=== PATIENT | female | born 1930 | race Caucasian/White ===

== ENCOUNTER 2018-09-29 09:46 | Inpatient (IN) ==
[2018-09-29] MEDS ORDERED: 0.9 % SODIUM CHLORIDE 1,000 ML IV ONE (10:32)
[2018-09-29 10:56] LABS: Basophils # (Auto) 0 K/mcL (0.0-0.3); Basophils % (Auto) 0 % (0.0-2.0); Eosinophils # (Auto) 1.6 K/mcL (0.0-0.7); Eosinophils % (Auto) 8.4 % (0.0-7.0); Granulocytes % (Auto) 78.2 % (38.0-78.0); Lymphocytes # (Auto) 1.3 K/mcL (1.5-4.8); Lymphocytes % (Auto) 7.2 % (15.5-49.0); Mean Cell Volume 87.3 fL (80.0-100.0); Mean Corpuscular HGB Conc 33.3 g/dL (31.0-36.0); Mean Corpuscular Hemoglobin 29.1 pg (26.0-34.0); Monocytes # (Auto) 1.2 K/mcL (0.1-0.9); Monocytes % (Auto) 6.2 % (1.0-12.0); Platelet Count 229 K/mcL (140-440); Red Cell Distribution Width 14.8 % (11.5-14.5)
[2018-09-29 11:18] LABS: ALT/SGPT 67 U/l (0-40); Albumin 3.8 gm/dL (3.2-5.2); Albumin/Globulin Ratio 1.1 (1.0-2.3); Alkaline Phosphatase 87 U/L (39-117); Blood Urea Nitrogen 43 mg/dl (8-23)
[2018-09-29] MEDS ORDERED: PIPERACILLIN SODIUM/TAZOBACTAM 3.375 GM in DEXTROSE 5% IN WATER 50 ML IV ONE (11:36)
--- NOTE | 2018-09-29 11:37 | Emergency Department Note ---
Weakness HPI - General Chief complaint: Weakness Stated complaint: Weakness, UTI Time Seen by Provider: 09/29/18 10:56 Source: patient, EMS Mode of arrival: ambulatory Limitations: no limitations - History of Present Illness HPI Narrative: 88-year-old female who fell last night and then again this morning comes in via EMS. Denies any current injury. Apparently she was cold and clammy but there was no fever nausea vomiting or diarrhea. Question of a partially treated UTI for which she received Rocephin last night with ciprofloxacin to go home with. I reviewed the note from [facility]-it shows that she had initially been on Macrobid. She has baseline dementia so while she is able to answer some basic questions she defers to her caregiver and son for much of the history. Her son states that she may have some altered mental status as well - Related Data Home Medications Medication Instructions Recorded Confirmed cholecalciferol (vitamin D3) 2,000 6,000 unit PO QDAY 04/17/17 08/21/18 unit capsule multivitamin tablet 1 tab-cap PO QDAY 04/17/17 08/21/18 donepezil 10 mg tablet 10 mg PO HS tab 02/19/18 08/21/18 Previous Rx's Medication Instructions Recorded Triamcinolone Crm 0.5% [Kenalog 1 dose TOPICAL DAILY #15 tube 12/18/17 Crm 0.5%] hydrocodone 5 mg-acetaminophen 325 1 tab PO .COMPLEX PRN #30 tab 03/23/18 mg tablet memantine 10 mg tablet 10 mg PO BID #180 tab 03/23/18 omeprazole 20 mg capsule,delayed 20 mg PO QDAY #90 cap 03/23/18 release pravastatin 40 mg tablet 40 mg PO QHS #90 tab 06/01/18 doxycycline hyclate 100 mg tablet 100 mg PO bid #20 tab 08/21/18 nitrofurantoin 100 mg PO BID #14 cap 09/25/18 monohydrate/macrocrystals 100 mg capsule Allergies Allergy/AdvReac Type Severity Reaction Status Date / Time Sulfa (Sulfonamide Allergy Mild UNKNOWN Verified 08/21/18 12:19 Antibiotics) Thiazides Allergy Mild ELEVATED Verified 08/21/18 12:19 WBC'S Erythromycin Base Allergy Unknown UNKNOWN Verified 08/21/18 12:19 Review of Systems All systems ED: reviewed and negative except as stated. Past Medical History - Past Medical History Attestation: Yes: The following information was validated with the patient. [facility] Narrative: Medical History (Last Reviewed 08/21/18 @ 13:05 by Mg Giang PA-C) Diverticulitis (Chronic) Subdural hematoma (Resolved) Diverticulitis (Resolved) Dementia (Chronic) Stroke (Chronic) Primary progressive aphasia (Chronic) Stress incontinence, female (Chronic) Peripheral vascular disease (Chronic) Lacunar infarction (Chronic) Hypertension, essential (Chronic) Hyperlipemia (Chronic) Heart murmur (Chronic) Esophageal reflux (Chronic) Atherosclerosis (Chronic) Aortic stenosis (Chronic) Accidental overdose (Resolved) Back Pain (Resolved) Deep venous thrombosis (Resolved) Degenerative joint disease (Resolved) Dermatitis (Resolved) Discitis of lumbar region (Resolved) Muscle spasm of right shoulder (Resolved) Nontraumatic rupture of Achilles tendon (Resolved) Thrombosis/embolism, venous (Resolved) Urgency of urination (Resolved) Vaginal vault prolapse after hysterectomy (Resolved 03/16/15) Past Surgical History (Last Reviewed 08/21/18 @ 13:05 by Mg Giang PA-C) History of intravascular stent placement (Chronic) History of discectomy (Resolved) History of hernia surgery (Resolved 05/06/14) History of hysterectomy (Resolved) History of knee replacement (Resolved) History of knee replacement (Resolved) History of oophorectomy (Resolved) Status post tendon repair (Resolved) Past Surgical History (Last Reviewed 08/21/18 @ 13:05 by Mg Giang PA-C) History of intravascular stent placement (Chronic) History of discectomy (Resolved) History of hernia surgery (Resolved 05/06/14) History of hysterectomy (Resolved) History of knee replacement (Resolved) History of knee replacement (Resolved) History of oophorectomy (Resolved) Status post tendon repair (Resolved) Family History (Last Reviewed 08/21/18 @ 13:05 by Mg Giang PA-C) Unknown Cardiac disease Essential hypertension Malignant neoplasm Source: old records reviewed Medical history: Reports: arthritis, coronary artery disease, CVA, dementia, GERD, hyperlipidemia, hypertension, osteoporosis, peripheral artery disease, pulmonary embolus, valvular heart disease (aortic stenosis - Heart Murmur.), other (diverticulitis. Inferior vena cava filter.) Psychiatric history: Reports: other (dementia) TAPROOM ATTENDANT history: Reports: non-contributory Surgical history ED: Reports: cholecystectomy, knee replacement (bilateral.) - Social History smoking status: Former smoker Alcohol use: Reports: None Physical Exam No acute distress resting comfortably. Normocephalic atraumatic. Conjunctive are clear sclerae nonicteric. No nasal discharge or congestion. Oropharynx pink and moist. Neck is supple without lymphadenopathy, thyromegaly or carotid bruit. Heart is regular rate and rhythm no murmur appreciated. Lungs are clear to auscultation bilaterally without wheezes rales rhonchi or respiratory distress. Abdomen is soft but diffusely mildly tender nondistended. No peritoneal signs or guarding. No pedal edema. +2 radial pulse. Alert. Limitations: no limitations Course Vital Signs Temperature 97.3 F 09/29/18 09:46 Pulse Rate 103 H 09/29/18 09:46 Respiratory Rate 18 09/29/18 09:46 Blood Pressure 124/78 09/29/18 09:46 Pulse Oximetry (%) 97 09/29/18 09:46 Temperature 98.3 F 09/30/18 03:15 Pulse Rate 99 H 09/30/18 03:15 Respiratory Rate 24 H 09/30/18 03:15 Blood Pressure 147/87 09/30/18 03:15 Pulse Oximetry (%) 97 09/30/18 03:15 Weakness - Lab Data Lab results reviewed: Yes I reviewed the patient's lab results. Result diagrams: 09/30/18 03:55 09/30/18 03:55 Lab Results 09/29/18 09/29/18 09/29/18 Range/Units 10:13 10:13 10:13 WBC (4.5-11.0) K/mcL RBC (4.00-5.20) M/mcL Hgb (12.0-15.0) g/dL Hct (36.0-48.0) % MCV (80.0-100.0) fL MCH (26.0-34.0) pg MCHC (31.0-36.0) g/dL RDW (11.5-14.5) % Plt Count (140-440) K/mcL MPV (7.4-10.4) fL Gran % (38.0-78.0) % Lymph % (Auto) (15.5-49.0) % Heard % (Auto) (1.0-12.0) % Eos % (Auto) (0.0-7.0) % Baso % (Auto) (0.0-2.0) % Gran # (1.8-8.0) K/mcL Lymph # (Auto) (1.5-4.8) K/mcL Heard # (Auto) (0.1-0.9) K/mcL Eos # (Auto) (0.0-0.7) K/mcL Baso # (Auto) (0.0-0.3) K/mcL VBG Lactic Acid 2.4 H (0.5-2.0) mmol/L Sodium (133-145) mmol/L Potassium (3.3-5.1) mmol/L Chloride (96-108) mmol/L Carbon Dioxide (22-30) mmol/L Anion Gap (8-16) BUN (8-23) mg/dl Creatinine (0.6-1.1) mg/dl GFR Calculation Glucose (70-105) mg/dL Calcium (8.6-10.4) mg/dl Total Bilirubin (0.0-1.0) mg/dL AST (0-37) U/l ALT (0-40) U/l Alkaline Phosphatase (39-117) U/L C-Reactive Protein 8.7 H (0.0-0.8) mg/dl Total Protein (5.9-8.4) gm/dL Albumin (3.2-5.2) gm/dL Globulin (2.2-3.7) gm/dL Albumin/Globulin Ratio (1.0-2.3) Procalcitonin 1.03 (<0.10) ng/mL Urine Color Urine Appearance Urine pH (5.0-9.0) Ur Specific Clubb (1.000-1.035) Urine Protein (NEG) mg/dL Urine Glucose (UA) (NEG) mg/dL Urine Ketones (NEG) mg/dL Urine Occult Blood (<0.03) mg/dL Urine Nitrate (NEG) Urine Bilirubin (NEG) mg/dL Urine Urobilinogen (NEG) mg/dL Ur Leukocyte Esterase (NEG) /uL Urine RBC (0-1) /hpf Urine WBC (0-4) /hpf Ur Squamous Epith Cells (0-4) /hpf Urine Bacteria (0) /hpf Hyaline Casts (0-2) /lpf Urine Mucus (0) /hpf Ur Culture Indicated? 09/29/18 09/29/18 09/29/18 Range/Units 10:20 10:20 12:16 WBC 18.5 H (4.5-11.0) K/mcL RBC 5.00 (4.00-5.20) M/mcL Hgb 14.5 (12.0-15.0) g/dL Hct 43.6 (36.0-48.0) % MCV 87.3 (80.0-100.0) fL MCH 29.1 (26.0-34.0) pg MCHC 33.3 (31.0-36.0) g/dL RDW 14.8 H (11.5-14.5) % Plt Count 229 (140-440) K/mcL MPV 8.5 (7.4-10.4) fL Gran % 78.2 H (38.0-78.0) % Lymph % (Auto) 7.2 L (15.5-49.0) % Heard % (Auto) 6.2 (1.0-12.0) % Eos % (Auto) 8.4 H (0.0-7.0) % Baso % (Auto) 0 (0.0-2.0) % Gran # 14.5 H (1.8-8.0) K/mcL Lymph # (Auto) 1.3 L (1.5-4.8) K/mcL Heard # (Auto) 1.2 H (0.1-0.9) K/mcL Eos # (Auto) 1.6 H (0.0-0.7) K/mcL Baso # (Auto) 0 (0.0-0.3) K/mcL VBG Lactic Acid (0.5-2.0) mmol/L Sodium 135 (133-145) mmol/L Potassium 4.5 (3.3-5.1) mmol/L Chloride 98 (96-108) mmol/L Carbon Dioxide 17 L (22-30) mmol/L Anion Gap 20.0 H (8-16) BUN 43 H (8-23) mg/dl Creatinine 1.8 H (0.6-1.1) mg/dl GFR Calculation 25 Glucose 174 H (70-105) mg/dL Calcium 9.5 (8.6-10.4) mg/dl Total Bilirubin 0.5 (0.0-1.0) mg/dL AST 46 H (0-37) U/l ALT 67 H (0-40) U/l Alkaline Phosphatase 87 (39-117) U/L C-Reactive Protein (0.0-0.8) mg/dl Total Protein 7.4 (5.9-8.4) gm/dL Albumin 3.8 (3.2-5.2) gm/dL Globulin 3.6 (2.2-3.7) gm/dL Albumin/Globulin Ratio 1.1 (1.0-2.3) Procalcitonin (<0.10) ng/mL Urine Color Yellow Urine Appearance Cloudy Urine pH 5.0 (5.0-9.0) Ur Specific Clubb 1.025 (1.000-1.035) Urine Protein 100 A (NEG) mg/dL Urine Glucose (UA) Negative (NEG) mg/dL Urine Ketones Neg (NEG) mg/dL Urine Occult Blood >=1.0 A (<0.03) mg/dL Urine Nitrate Neg (NEG) Urine Bilirubin Neg (NEG) mg/dL Urine Urobilinogen Neg (NEG) mg/dL Ur Leukocyte Esterase 25 A (NEG) /uL Urine RBC 8 H (0-1) /hpf Urine WBC 16 H (0-4) /hpf Ur Squamous Epith Cells 4 (0-4) /hpf Urine Bacteria 0 (0) /hpf Hyaline Casts 141 H (0-2) /lpf Urine Mucus Many A (0) /hpf Ur Culture Indicated? Yes 09/29/18 Range/Units 14:13 WBC (4.5-11.0) K/mcL RBC (4.00-5.20) M/mcL Hgb (12.0-15.0) g/dL Hct (36.0-48.0) % MCV (80.0-100.0) fL MCH (26.0-34.0) pg MCHC (31.0-36.0) g/dL RDW (11.5-14.5) % Plt Count (140-440) K/mcL MPV (7.4-10.4) fL Gran % (38.0-78.0) % Lymph % (Auto) (15.5-49.0) % Heard % (Auto) (1.0-12.0) % Eos % (Auto) (0.0-7.0) % Baso % (Auto) (0.0-2.0) % Gran # (1.8-8.0) K/mcL Lymph # (Auto) (1.5-4.8) K/mcL Heard # (Auto) (0.1-0.9) K/mcL Eos # (Auto) (0.0-0.7) K/mcL Baso # (Auto) (0.0-0.3) K/mcL VBG Lactic Acid 2.1 H (0.5-2.0) mmol/L Sodium (133-145) mmol/L Potassium (3.3-5.1) mmol/L Chloride (96-108) mmol/L Carbon Dioxide (22-30) mmol/L Anion Gap (8-16) BUN (8-23) mg/dl Creatinine (0.6-1.1) mg/dl GFR Calculation Glucose (70-105) mg/dL Calcium (8.6-10.4) mg/dl Total Bilirubin (0.0-1.0) mg/dL AST (0-37) U/l ALT (0-40) U/l Alkaline Phosphatase (39-117) U/L C-Reactive Protein (0.0-0.8) mg/dl Total Protein (5.9-8.4) gm/dL Albumin (3.2-5.2) gm/dL Globulin (2.2-3.7) gm/dL Albumin/Globulin Ratio (1.0-2.3) Procalcitonin (<0.10) ng/mL Urine Color Urine Appearance Urine pH (5.0-9.0) Ur Specific Clubb (1.000-1.035) Urine Protein (NEG) mg/dL Urine Glucose (UA) (NEG) mg/dL Urine Ketones (NEG) mg/dL Urine Occult Blood (<0.03) mg/dL Urine Nitrate (NEG) Urine Bilirubin (NEG) mg/dL Urine Urobilinogen (NEG) mg/dL Ur Leukocyte Esterase (NEG) /uL Urine RBC (0-1) /hpf Urine WBC (0-4) /hpf Ur Squamous Epith Cells (0-4) /hpf Urine Bacteria (0) /hpf Hyaline Casts (0-2) /lpf Urine Mucus (0) /hpf Ur Culture Indicated? - Radiology Data Radiology results reviewed: Yes I reviewed the patient's radiology results. CT abdomen and pelvis shows no acute findings Disposition Pt seen by ENGINE TURNER/PA only: No Clinical Impression: Acute kidney injury, SIRS (systemic inflammatory response syndrome) Fall Qualifiers: Encounter type: initial encounter Qualified Code(s): W19.XXXA - Unspecified fall, initial encounter UTI (urinary tract infection) Qualifiers: Urinary tract infection type: acute cystitis Hematuria presence: with hematuria Qualified Code(s): N30.01 - Acute cystitis with hematuria Summary: Patient seen and evaluated. Laboratory workup ordered as well as CT abdomen and pelvis with concern secondary to increasing creatinine and belly tenderness on exam. No signs of trauma seen Concern for partially treated urinary tract infection so Zosyn is given as well as IV fluids. Does appear baseline creatinines around 1 but it went to 1.4 yesterday at [facility] and then to 1.8 here today. Concern for Sirs versus sepsis with altered mentation (per patient family), vital sign abnormalities and laboratory. Blood cultures were done prior to antibiotics Discussed case with Dr. Grant Martel hospitalist, who agreed to accept the patient for further care and evaluation in the hospital Disposition: Xfer As Inpt ([facility]) Condition: Fair
[2018-09-29 11:48] LABS: C-Reactive Protein 8.7 mg/dl (0.0-0.8)
--- NOTE | 2018-09-29 12:46 | Cat Scan Report ---
CLINICAL INFORMATION: Abdominal pain. Weakness. COMPARISON: Previous CT scans dated 12/18/2017, 01/30/2018 TECHNIQUE: Axial images were obtained through the abdomen and pelvis. Sagittally and coronally reformatted images. Intravenous contrast material was not administered. Oral contrast material was given FINDINGS: Mild bilateral lower lobe dependent atelectasis. No focal consolidation. No evidence for pneumonia. No pleural fluid. No pericardial fluid. There is a moderate to large hiatal hernia. No focal intrahepatic mass identified. Liver contour is smooth. No evidence for cirrhosis. There is no ascites gallbladder has been removed. There is severe intra and extrahepatic bile duct dilatation. Appearance is unchanged although comparison with the previous postcontrast enhanced examination is somewhat difficult due to technical differences in scan quality. No detectable hepatic mass. No evidence for hepatic abscess. Pancreas is negative. No pancreatic mass. No peripancreatic abnormality. Spleen is negative. No splenomegaly. Adrenal glands are negative. Kidneys are negative to the limits of noncontrast enhanced examination. No significant hydronephrosis. No hydroureter. No detectable ureteral stone. No bladder calculus. There is a Sosa catheter within the bladder. There is sigmoid colon diverticulosis. No evidence for diverticulitis. No detectable hepatic mass. No appendicitis. No mechanical small bowel obstruction. Densely calcified abdominal aorta. No significant abdominal aortic aneurysm. Abdominal aorta measures a maximum of 2.1 cm in cross-sectional diameter. There is an inferior vena caval filter in place. There are multiple varices within the subcutaneous soft tissues of the lower abdominal and pelvic wall. Thrombosis of the inferior vena cava is not excluded. Appearance is unchanged. No intra-abdominal abscess. No pneumoperitoneum. No biliary or portal venous gas. No pneumatosis. Uterus is not identified. No adnexal mass. Severe multilevel degenerative disc disease. Patient has undergone previous posterior spinal fusion. No sacral or pelvic fracture. IMPRESSION: 1. Previous cholecystectomy. Severe intra and extrahepatic bile duct dilatation. Findings are unchanged 2. Extensive atherosclerotic calcification. Inferior vena caval filter is present. There are prominent anterior abdominal and pelvic wall varices. Inferior vena caval thrombosis is possible 3. No intra-abdominal abscess. 4. There is severe multilevel degenerative disc disease throughout the lumbar spine. Previous posterior spinal fusion 5. No significant interval change since 12/18/2017 The exam was performed using radiation dose optimization techniques including, but not limited to, automated exposure control, adjustment of the mA and/or kV according to patient size and use of iterative reconstruction technique. Interpreted and Authenticated by: Marcello Bryant 09/29/18
[2018-09-29 12:48] LABS: Appearance,Urine CLOUDY; Bacteria,Urine 0 /hpf (0); Bilirubin,Urine NEG (NEG); Color,Urine YELLOW; Glucose,Urine (UA) NEGATIVE (NEG); Leukocyte Esterase,Urine 25 /uL (NEG); Mucus,Urine MANY /hpf (0); Protein,Urine 100 mg/dL (NEG); Specific Gravity,Urine 1.025 (1.000-1.035); Urine Blood >=1.0 mg/dL (<0.03); Urine Hyaline Cast 141 /lpf (0-2); Urine RBC 8 /hpf (0-1); Urine Squamous Epithelial Cell 4 /hpf (0-4); Urine WBC 16 /hpf (0-4); Urobilinogen,Urine NEG (NEG)
[2018-09-29] MEDS ORDERED: LACTATED RINGERS 800 ML IV ONE (13:51)
--- NOTE | 2018-09-29 13:57 | Internal Med History&Physical ---
Medical - H&P: [facility] Patient information: Note initiated : 09/29/18 at 1:54 pm Service Date, if different from initiated Date: [] Patient: Yelitza Knight a 88 y/o F admitted on for Weakness, UTI. Chief Complaint: [] History of present illness: Ms. Knight is a 88 year old F Who presents after severe weakness found at home this morning. Patient was diagnosed with UTI about a week ago, do not know what the antibiotic was possibly it was Macrobid. Last night she was very weak and had a fall did not hit her head she was taken to [facility] she got imaging of the brain and chest urinalysis was done which was concerning for untreated urinary tract infection she given IV fluids and given a prescription for Cipro. Family has not been able to fill the ciprofloxacin prescription yet this morning she was so weak she could not get up she seemed shaky a little bit more altered than usual she is cold and clammy per the cornice upholsterer. History is obtained from the family and cornice upholsterer as patient has advanced dementia and unable to give a history. Patient had a cold for the past few days developed a nonproductive cough. There is been no reported fevers. In the ER she was found to have acute kidney injury leukocytosis likely source urinary with clinical findings consistent with a sepsis syndrome. CT abdomen pelvis was done as well which was showed no acute pathology. Review of Systems: denies headache/fever/chills/nausea/vomiting/chest or abdominal pain/cough/ dyspnea/diarrhea. Remaining 10 point review of systems reviewed negative Medical - H&P: PM Medical history: Medical History (Last Reviewed 08/21/18 @ 13:05 by Mg Giang PA-C) Diverticulitis (Chronic) Subdural hematoma (Resolved) Diverticulitis (Resolved) Dementia (Chronic) Stroke (Chronic) Primary progressive aphasia (Chronic) Stress incontinence, female (Chronic) Peripheral vascular disease (Chronic) Lacunar infarction (Chronic) Hypertension, essential (Chronic) Hyperlipemia (Chronic) Heart murmur (Chronic) Esophageal reflux (Chronic) Atherosclerosis (Chronic) Aortic stenosis (Chronic) Accidental overdose (Resolved) Back Pain (Resolved) Deep venous thrombosis (Resolved) Degenerative joint disease (Resolved) Dermatitis (Resolved) Discitis of lumbar region (Resolved) Muscle spasm of right shoulder (Resolved) Nontraumatic rupture of Achilles tendon (Resolved) Thrombosis/embolism, venous (Resolved) Urgency of urination (Resolved) Vaginal vault prolapse after hysterectomy (Resolved 03/16/15) Past Surgical History (Last Reviewed 08/21/18 @ 13:05 by Mg Giang PA-C) History of intravascular stent placement (Chronic) History of discectomy (Resolved) History of hernia surgery (Resolved 05/06/14) History of hysterectomy (Resolved) History of knee replacement (Resolved) History of knee replacement (Resolved) History of oophorectomy (Resolved) Status post tendon repair (Resolved) Family History (Last Reviewed 08/21/18 @ 13:05 by Mg Giang PA-C) Unknown Cardiac disease Essential hypertension Malignant neoplasm Social History (Last Updated 08/21/18 @ 13:12 by Mg Giang PA-C) Patient resides at home with family she has a cornice upholsterer that comes every day. Does not smoke quit in the 70s he drinks alcohol rarely uses a walker to get around. Medical - H&P: Meds Home Medications Medication Instructions Recorded Confirmed Type cholecalciferol (vitamin D3) 2,000 6,000 unit PO QDAY 04/17/17 08/21/18 History unit capsule multivitamin tablet 1 tab-cap PO QDAY 04/17/17 08/21/18 History Triamcinolone Crm 0.5% [Kenalog 1 dose TOPICAL DAILY #15 tube 12/18/17 08/21/18 Rx Crm 0.5%] donepezil 10 mg tablet 10 mg PO HS tab 02/19/18 08/21/18 History hydrocodone 5 mg-acetaminophen 325 1 tab PO .COMPLEX PRN #30 tab 03/23/18 Rx mg tablet memantine 10 mg tablet 10 mg PO BID #180 tab 03/23/18 08/21/18 Rx omeprazole 20 mg capsule,delayed 20 mg PO QDAY #90 cap 03/23/18 08/21/18 Rx release pravastatin 40 mg tablet 40 mg PO QHS #90 tab 06/01/18 08/21/18 Rx doxycycline hyclate 100 mg tablet 100 mg PO bid #20 tab 08/21/18 08/21/18 Rx nitrofurantoin 100 mg PO BID #14 cap 09/25/18 Rx monohydrate/macrocrystals 100 mg capsule Allergies Allergy/AdvReac Type Severity Reaction Status Date / Time Sulfa (Sulfonamide Allergy Mild UNKNOWN Verified 08/21/18 12:19 Antibiotics) Thiazides Allergy Mild ELEVATED Verified 08/21/18 12:19 WBC'S Erythromycin Base Allergy Unknown UNKNOWN Verified 08/21/18 12:19 Medical - H&P: Exam - Constitutional Vitals: Temp Pulse Resp BP Pulse Ox 97.3 F 81 18 136/78 97 09/29/18 09:46 09/29/18 12:53 09/29/18 09:46 09/29/18 13:31 09/29/18 12:53 Exam: General: Alert, Awake, No acute Distress, pleasant and cooperative Eyes/N/T: EOMI, PEERL, DMM Head/Neck: neck supple, normocephalic atraumatic CV: RRR, 2/6 sm, normal s1/s2 Pulm: Clear b/l, no wheezing/rhonchi/rales Abd: soft, nontender, +BS x4 Ext: no clubbing/cyanosis/edema Neuro: Alert, no focal deficits, moves all extremities, CN 2-12 grossly intact, symmetrical strength b/l upper/lower, sensations intact b/l upper/lower Skin: warm/dry Medical - H&P: Reslt - Labs CBC & Chem 7: 09/29/18 10:20 09/29/18 10:20 Labs: Short CBC 09/29/18 Range/Units 10:20 WBC 18.5 H (4.5-11.0) K/mcL Hgb 14.5 (12.0-15.0) g/dL Hct 43.6 (36.0-48.0) % Plt Count 229 (140-440) K/mcL BMP 09/29/18 10:20 Sodium 135 Potassium 4.5 Chloride 98 Carbon Dioxide 17 L BUN 43 H Creatinine 1.8 H Glucose 174 H Calcium 9.5 Liver Function 09/29/18 Range/Units 10:20 Total Bilirubin 0.5 (0.0-1.0) mg/dL AST 46 H (0-37) U/l ALT 67 H (0-40) U/l Alkaline Phosphatase 87 (39-117) U/L Albumin 3.8 (3.2-5.2) gm/dL Urine 09/29/18 Range/Units 12:16 Urine Color Yellow Urine Appearance Cloudy Urine pH 5.0 (5.0-9.0) Ur Specific [place] 1.025 (1.000-1.035) Urine Protein 100 A (NEG) mg/dL Urine Glucose (UA) Negative (NEG) mg/dL - Impressions Imaging of the abdomen with no acute pathology urinalysis with leukocyte esterase and WBCs as well as hyaline casts Medical - H&P: A/P - Narrative A/P Narrative: A: *UTI: Failed outpatient therapy *Sepsis: *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
[2018-09-29] MEDS ORDERED: ONDANSETRON 4 MG/2 ML VIAL IV PRN (14:32)
[2018-09-29] MEDS ORDERED: BISACODYL 5 MG TABLET PO PRN (14:32)
[2018-09-29] MEDS ORDERED: IPRATROPIUM/ALBUTEROL 3 ML AMPUL.NEB NEB PRN (14:32)
[2018-09-29] MEDS ORDERED: cefTRIAXone 1 GM in DEXTROSE 5% IN WATER 50 ML IV SCH (14:32)
[2018-09-29] MEDS: 0.9 % SODIUM CHLORIDE 10 ML SYRINGE IV SCH ×2 (15:07→21:07)
[2018-09-29] MEDS: cefTRIAXone 1 GM VIAL IV SCH (15:07)
--- NOTE | 2018-09-29 15:09 | XRay Report ---
INDICATION: Altered mental status TECHNIQUE: AP chest x-ray,portable semiupright COMPARISON: Previous examination dated 08/21/2018 FINDINGS:Suboptimal evaluation due to portable semiupright technique and left convex thoracolumbar scoliosis. No focal pulmonary parenchymal mass. No parenchymal consolidation. Heart size and vascularity are within normal limits. Ave and mediastinum are negative. No evidence for pleural fluid. There may be a hiatal hernia IMPRESSION: 1. Left convex thoracolumbar scoliosis 2. No acute or focal abnormality Interpreted and Authenticated by: Marcello Bryant 09/29/18
[2018-09-29] MEDS: FAMOTIDINE 20 MG TABLET PO SCH (21:05)
[2018-09-29] MEDS: ACETAMINOPHEN 325 MG TABLET PO PRN (21:06)
[2018-09-30 05:36] LABS: Basophils # (Auto) 0 K/mcL (0.0-0.3); Basophils % (Auto) 0.2 % (0.0-2.0); Eosinophils # (Auto) 1.4 K/mcL (0.0-0.7); Eosinophils % (Auto) 10.3 % (0.0-7.0); Granulocytes % (Auto) 70.4 % (38.0-78.0); Lymphocytes # (Auto) 1.3 K/mcL (1.5-4.8); Lymphocytes % (Auto) 8.9 % (15.5-49.0); Mean Cell Volume 87.2 fL (80.0-100.0); Mean Corpuscular HGB Conc 33.6 g/dL (31.0-36.0); Mean Corpuscular Hemoglobin 29.3 pg (26.0-34.0); Monocytes # (Auto) 1.4 K/mcL (0.1-0.9); Monocytes % (Auto) 10.2 % (1.0-12.0); Platelet Count 169 K/mcL (140-440); Red Cell Distribution Width 14.5 % (11.5-14.5)
[2018-09-30 05:50] LABS: ALT/SGPT 55 U/l (0-40); Albumin 3.4 gm/dL (3.2-5.2); Albumin/Globulin Ratio 1.1 (1.0-2.3); Alkaline Phosphatase 76 U/L (39-117); Bilirubin,Direct < 0.2 mg/dL (0.0-0.3); Blood Urea Nitrogen 48 mg/dl (8-23); Gamma Glutamyl Transpeptidase 31 U/L (5-36)
[2018-09-30] MEDS ORDERED: METOPROLOL TARTRATE 25 MG TABLET PO ONE (06:49)
[2018-09-30] MEDS ORDERED: LACTATED RINGERS 1,000 ML IV ONE (06:51)
--- NOTE | 2018-09-30 06:56 | Internal Med Progress Note ---
Medical - PN: Subj Patient information: Note initiated : 09/30/18 at 6:46 am Service Date, if different from initiated Date: [] Patient: Yelitza Knight a 88 y/o F admitted on 09/29/18 for Weakness, UTI. Chief Complaint: [] Interval history: Ms. Knight is a 88 year old F Who presents after severe weakness found at home this morning. Patient was diagnosed with UTI about a week ago, do not know what the antibiotic was possibly it was Macrobid. Last night she was very weak and had a fall did not hit her head she was taken to [place] she got imaging of the brain and chest urinalysis was done which was concerning for untreated urinary tract infection she given IV fluids and given a prescription for Cipro. Family has not been able to fill the ciprofloxacin prescription yet this morning she was so weak she could not get up she seemed shaky a little bit more altered than usual she is cold and clammy per the director revenue. History is obtained from the family and director revenue as patient has advanced dementia and unable to give a history. Patient had a cold for the past few days developed a nonproductive cough. There is been no reported fevers. In the ER she was found to have acute kidney injury leukocytosis likely source urinary with clinical findings consistent with a sepsis syndrome. CT abdomen pelvis was done as well which was showed no acute pathology. 09/29 Patient extremely agitated this morning Zyprexa. Family bedside. Patient removed Sosa last night. Unable to gather ROS given advanced dementia - Constitutional Vitals: Vital Signs Temp Pulse Resp BP Pulse Ox 98.3 F 99 H 24 H 147/87 97 09/30/18 03:15 09/30/18 03:15 09/30/18 03:15 09/30/18 03:15 09/30/18 03:15 Period Temp Pulse Resp BP Sys/Martel Pulse Ox Last 24 Hr 97.3 F-98.5 F 73-105 18-24 106-161/58-132 94-100 Intake and Output 09/29/18 09/30/18 09/30/18 21:59 05:59 13:59 Intake Total 1767 / 1767 0 / 0 Output Total 175 / 175 Balance 1767 / 1767 -175 / -175 Weight 61.235 kg Intake & Output: Intake & Output 09/29/18 09/30/18 09/30/18 21:59 05:59 13:59 Intake Total 1767 / 1767 0 / 0 Output Total 175 / 175 Balance 1767 / 1767 -175 / -175 Weight 61.235 kg Intake: IV 1567 / 1567 Sodium Chloride 0.9% 1,000 ml @ 1000 / 1000 Wide Open IV BOLUS ONE Rx#: [id number] Lactated Ringers 800 ml @ Wide 567 / 567 Open IV BOLUS ONE Rx#:[id number] Oral 200 / 200 0 / 0 Output: Urine Catheter Amount 175 / 175 Other: Meal Dinner Percent of Meal Consumed 10% Feeding Ability Total Assistance Urine Appearance Cloudy Clear Sediment Uretheral (Sosa) Cloudy Urine Color Dark Yellow Light Ivory Uretheral (Sosa) Dark Yellow Dark Yellow Urine Odor Normal Stool Size Moderate Stool Color Brown Yellow Stool Consistency Loose # of times incontinent of 1 Bowels Exam: General: Alert, Awake, No acute Distress, Eyes/N/T: EOMI, Head/Neck: neck supple, CV: RRR, 2/6 sm, normal s1/s2 Pulm: Clear b/l, no wheezing/rhonchi/rales Abd: soft, nontender, +BS x4 Ext: no clubbing/cyanosis, trace b/l LE edema Neuro: Alert, no focal deficits, moves all extremities, advanced alzheimer's Skin: warm/dry Medical - PN: Obj Da - Labs CBC & Chem 7: 09/30/18 03:55 09/30/18 03:55 Labs: Abnormal Lab Results 09/30/18 09/30/18 09/30/18 03:55 03:55 03:55 WBC 14.0 H RDW Gran % Lymph % (Auto) 8.9 L Eos % (Auto) 10.3 H Gran # 9.9 H Lymph # (Auto) 1.3 L [place] # (Auto) 1.4 H Eos # (Auto) 1.4 H VBG Lactic Acid 2.4 H Carbon Dioxide 15 L Anion Gap 18.0 H BUN 48 H Creatinine 2.0 H Glucose 169 H AST ALT 55 H C-Reactive Protein Triglycerides 191 H Urine Protein Urine Occult Blood Ur Leukocyte Esterase Urine RBC Urine WBC Hyaline Casts Urine Mucus 09/29/18 09/29/18 09/29/18 14:13 12:16 10:20 WBC RDW Gran % Lymph % (Auto) Eos % (Auto) Gran # Lymph # (Auto) [place] # (Auto) Eos # (Auto) VBG Lactic Acid 2.1 H Carbon Dioxide 17 L Anion Gap 20.0 H BUN 43 H Creatinine 1.8 H Glucose 174 H AST 46 H ALT 67 H C-Reactive Protein Triglycerides Urine Protein 100 A Urine Occult Blood >=1.0 A Ur Leukocyte Esterase 25 A Urine RBC 8 H Urine WBC 16 H Hyaline Casts 141 H Urine Mucus Many A 09/29/18 09/29/18 09/29/18 10:20 10:13 10:13 WBC 18.5 H RDW 14.8 H Gran % 78.2 H Lymph % (Auto) 7.2 L Eos % (Auto) 8.4 H Gran # 14.5 H Lymph # (Auto) 1.3 L [place] # (Auto) 1.2 H Eos # (Auto) 1.6 H VBG Lactic Acid 2.4 H Carbon Dioxide Anion Gap BUN Creatinine Glucose AST ALT C-Reactive Protein 8.7 H Triglycerides Urine Protein Urine Occult Blood Ur Leukocyte Esterase Urine RBC Urine WBC Hyaline Casts Urine Mucus Meds: Medications Acetaminophen (Tylenol) 650 mg PO Q6HP PRN PRN Reason: PAIN/FEVER > 101 Last Admin: 09/29/18 21:06 Dose: 650 mg Albuterol/Ipratropium (Duoneb) 3 ml NEB Q4HRT PRN PRN Reason: Bronchospasm Bisacodyl (Dulcolax) 10 mg PO DAILYP PRN PRN Reason: Constipation Ceftriaxone Sodium (Rocephin) 1 gm IV Q24H [facility] Last Admin: 09/29/18 15:07 Dose: 1 gm Enoxaparin Sodium (Lovenox) 40 mg SQ DAILY [facility] Famotidine (Pepcid) 20 mg PO HS [facility] Last Admin: 09/29/18 21:05 Dose: 20 mg Ondansetron HCl (Zofran) 4 mg IV Q4HP PRN PRN Reason: Nausea And Vomiting Sodium Chloride (Saline Flush) 10 ml IV Q8 [facility] Last Admin: 09/29/18 21:07 Dose: 10 ml Medical - PN: A/P - Time Spent With Patient Total time spent is greater than 50% in coordination of care (as documented) at patient's floor/unit and/or counseling patient: - Narrative A/P Narrative: A: *UTI: Failed outpatient therapy *Sepsis: -leukocytosis improving -CT a/p no acute path *DG on CKD III: -2.0<1.8 *Generalized weakness: *Advanced Alzheimer's dementia: *PVD: *h/o CVA *h/o 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
[2018-09-30] MEDS ORDERED: OLANZapine 10 MG VIAL IM ONE (08:00)
[2018-09-30] MEDS: ENOXAPARIN 40 MG/0.4 ML SYRINGE SQ SCH (08:39)
[2018-09-30] MEDS: cefTRIAXone 1 GM VIAL IV SCH (08:39)
[2018-09-30] MEDS: 0.9 % SODIUM CHLORIDE 10 ML SYRINGE IV SCH ×3 (08:39→22:11)
[2018-09-30] MEDS: ACETAMINOPHEN 325 MG TABLET PO PRN (11:44)
[2018-09-30 12:10] LABS: Creatinine,Urine Random 127.7 mg/dl
[2018-09-30 13:02] LABS: Blood Urea Nitrogen 46 mg/dl (8-23)
[2018-09-30] MEDS ORDERED: LACTATED RINGERS 1,000 ML IV SCH (13:15)
[2018-09-30] MEDS: PIPERACILLIN SODIUM/TAZOBACTAM 2.25 GM in DEXTROSE 5% IN WATER 50 ML IV SCH ×2 (14:03→22:12)
[2018-09-30] MEDS ORDERED: LEVOFLOXACIN 750 MG/150 ML BAG IV SCH (15:00)
--- NOTE | 2018-09-30 15:16 | Ultrasound Report ---
CLINICAL INFORMATION: Urinary tract infection TECHNIQUE: Grayscale and color flow Doppler spectral and COMPARISON: Previous CT scans dated 09/29/2018 and 01/30/2018 FINDINGS: Right kidney measures 9.5 x 4.0 x 4.5 cm. No solid or cystic mass. No hydronephrosis. No detectable calculi. Right renal cortex is mildly echogenic, consistent with medical renal disease. Left kidney measures 8.1 x 3.7 x 4.5 cm. No solid or cystic mass. No hydronephrosis. No detectable calculi. Left renal cortex is mildly echogenic consistent with medical renal disease. Prevoid bladder volume measures 97 mL. Patient was unable to void. Both ureteral jets are identified. No bladder calculus identified. IMPRESSION: 1. Mildly echogenic renal cortex bilaterally. Findings are seen are consistent with medical renal disease. 2. No hydronephrosis. No solid or cystic mass Interpreted and Authenticated by: Marcello Bryant 09/30/18
[2018-09-30] MEDS: FAMOTIDINE 20 MG TABLET PO SCH (20:16)
[2018-09-30] MEDS: MEMANTINE 10 MG TABLET PO SCH (20:16)
[2018-09-30] MEDS ORDERED: OLANZapine 5 MG TABLET PO SCH (21:00)
[2018-09-30] MEDS ORDERED: SIMVASTATIN 20 MG TABLET PO SCH (21:00)
[2018-10-01 05:24] LABS: Basophils # (Auto) 0 K/mcL (0.0-0.3); Basophils % (Auto) 0.2 % (0.0-2.0); Eosinophils # (Auto) 1.7 K/mcL (0.0-0.7); Granulocytes % (Auto) 61.8 % (38.0-78.0); Lymphocytes # (Auto) 1.6 K/mcL (1.5-4.8); Lymphocytes % (Auto) 13.6 % (15.5-49.0); Mean Cell Volume 87.6 fL (80.0-100.0); Mean Corpuscular HGB Conc 34.1 g/dL (31.0-36.0); Mean Corpuscular Hemoglobin 29.9 pg (26.0-34.0); Monocytes # (Auto) 1.3 K/mcL (0.1-0.9); Monocytes % (Auto) 10.4 % (1.0-12.0); Platelet Count 165 K/mcL (140-440)
[2018-10-01] MEDS: PIPERACILLIN SODIUM/TAZOBACTAM 2.25 GM in DEXTROSE 5% IN WATER 50 ML IV SCH (05:27)
[2018-10-01] MEDS: 0.9 % SODIUM CHLORIDE 10 ML SYRINGE IV SCH ×3 (05:27→21:55)
[2018-10-01 05:51] LABS: Blood Urea Nitrogen 36 mg/dl (8-23); C-Reactive Protein 3.1 mg/dl (0.0-0.8)
--- NOTE | 2018-10-01 06:53 | Internal Med Progress Note ---
Medical - PN: Subj Patient information: Note initiated : 10/01/18 at 6:48 am Service Date, if different from initiated Date: [] Patient: Yelitza Knight a 88 y/o F admitted on 09/29/18 for Weakness, UTI. Chief Complaint: [] Interval history: Ms. Knight is a 88 year old F Who presents after severe weakness found at home this morning. Patient was diagnosed with UTI about a week ago, do not know what the antibiotic was possibly it was Macrobid. Last night she was very weak and had a fall did not hit her head she was taken to [place] she got imaging of the brain and chest urinalysis was done which was concerning for untreated urinary tract infection she given IV fluids and given a prescription for Cipro. Family has not been able to fill the ciprofloxacin prescription yet this morning she was so weak she could not get up she seemed shaky a little bit more altered than usual she is cold and clammy per the bottom liquor attendant. History is obtained from the family and bottom liquor attendant as patient has advanced dementia and unable to give a history. Patient had a cold for the past few days developed a nonproductive cough. There is been no reported fevers. In the ER she was found to have acute kidney injury leukocytosis likely source urinary with clinical findings consistent with a sepsis syndrome. CT abdomen pelvis was done as well which was showed no acute pathology. 09/30 Patient extremely agitated this morning Zyprexa. Family bedside. Patient removed Sosa last night. Unable to gather ROS given advanced dementia 10/01 Patient slept better per nursing last night. Calm and cooperative this morning. Chattering quite a bit but I am unable to understand. Able to gather review of systems given the advanced dementia - Constitutional Vitals: Vital Signs Temp Pulse Resp BP Pulse Ox 97.7 F 98 H 22 144/80 95 10/01/18 04:00 10/01/18 04:00 10/01/18 04:00 10/01/18 04:00 10/01/18 04:00 Period Temp Pulse Resp BP Sys/Martel Pulse Ox Last 24 Hr 97.7 F-98.4 F 80-122 18-24 144-176/75-81 95-98 Intake and Output 09/30/18 10/01/18 10/01/18 21:59 05:59 13:59 Intake Total 150 / 150 50 / 50 Output Total 201 / 201 Balance -51 / -51 50 / 50 Weight 61.235 kg Intake & Output: Intake & Output 09/30/18 10/01/18 10/01/18 21:59 05:59 13:59 Intake Total 150 / 150 50 / 50 Output Total 201 / 201 Balance -51 / -51 50 / 50 Weight 61.235 kg Intake: IV 50 / 50 50 / 50 Zosyn 2.25 gm In Dextrose 5% in 50 / 50 50 / 50 Water 50 ml @ 100 mls/hr IV Q8H [facility] Rx#:[id number] Oral 100 / 100 0 / 0 Output: Void Amount 200 / 200 # of times incontinent of urine Other: Meal Dinner Percent of Meal Consumed 10% Feeding Ability Total Assistance Exam: General: Alert, Awake, No acute Distress, Eyes/N/T: EOMI, Head/Neck: neck supple, CV: RRR, 2/6 sm, normal s1/s2 Pulm: Clear b/l, no wheezing/rhonchi/rales Abd: soft, nontender, +BS x4 Ext: no clubbing/cyanosis, trace b/l LE edema Neuro: Alert, no focal deficits, moves all extremities spontaneously, advanced alzheimer's Skin: warm/dry Medical - PN: Obj Da - Labs CBC & Chem 7: 10/01/18 04:05 10/01/18 04:05 Labs: Abnormal Lab Results 10/01/18 10/01/18 09/30/18 04:05 04:05 12:00 WBC 12.1 H RBC 3.80 L Hgb 11.4 L Hct 33.3 L RDW Gran % Lymph % (Auto) 13.6 L Eos % (Auto) 14.0 H Gran # Lymph # (Auto) [place] # (Auto) 1.3 H Eos # (Auto) 1.7 H VBG Lactic Acid Chloride 109 H Carbon Dioxide 21 L 21 L Anion Gap BUN 36 H 46 H Creatinine 1.6 H 1.9 H Glucose 107 H 125 H AST ALT C-Reactive Protein 3.1 H Triglycerides Urine Protein Urine Occult Blood Ur Leukocyte Esterase Urine RBC Urine WBC Hyaline Casts Urine Mucus 09/30/18 09/30/18 09/30/18 12:00 03:55 03:55 WBC RBC Hgb Hct RDW Gran % Lymph % (Auto) Eos % (Auto) Gran # Lymph # (Auto) [place] # (Auto) Eos # (Auto) VBG Lactic Acid 2.3 H 2.4 H Chloride Carbon Dioxide 15 L Anion Gap 18.0 H BUN 48 H Creatinine 2.0 H Glucose 169 H AST ALT 55 H C-Reactive Protein Triglycerides 191 H Urine Protein Urine Occult Blood Ur Leukocyte Esterase Urine RBC Urine WBC Hyaline Casts Urine Mucus 09/30/18 09/29/18 09/29/18 03:55 14:13 12:16 WBC 14.0 H RBC Hgb Hct RDW Gran % Lymph % (Auto) 8.9 L Eos % (Auto) 10.3 H Gran # 9.9 H Lymph # (Auto) 1.3 L [place] # (Auto) 1.4 H Eos # (Auto) 1.4 H VBG Lactic Acid 2.1 H Chloride Carbon Dioxide Anion Gap BUN Creatinine Glucose AST ALT C-Reactive Protein Triglycerides Urine Protein 100 A Urine Occult Blood >=1.0 A Ur Leukocyte Esterase 25 A Urine RBC 8 H Urine WBC 16 H Hyaline Casts 141 H Urine Mucus Many A 09/29/18 09/29/18 09/29/18 10:20 10:20 10:13 WBC 18.5 H RBC Hgb Hct RDW 14.8 H Gran % 78.2 H Lymph % (Auto) 7.2 L Eos % (Auto) 8.4 H Gran # 14.5 H Lymph # (Auto) 1.3 L [place] # (Auto) 1.2 H Eos # (Auto) 1.6 H VBG Lactic Acid Chloride Carbon Dioxide 17 L Anion Gap 20.0 H BUN 43 H Creatinine 1.8 H Glucose 174 H AST 46 H ALT 67 H C-Reactive Protein 8.7 H Triglycerides Urine Protein Urine Occult Blood Ur Leukocyte Esterase Urine RBC Urine WBC Hyaline Casts Urine Mucus 09/29/18 10:13 WBC RBC Hgb Hct RDW Gran % Lymph % (Auto) Eos % (Auto) Gran # Lymph # (Auto) [place] # (Auto) Eos # (Auto) VBG Lactic Acid 2.4 H Chloride Carbon Dioxide Anion Gap BUN Creatinine Glucose AST ALT C-Reactive Protein Triglycerides Urine Protein Urine Occult Blood Ur Leukocyte Esterase Urine RBC Urine WBC Hyaline Casts Urine Mucus Meds: Medications Acetaminophen (Tylenol) 650 mg PO Q6HP PRN PRN Reason: PAIN/FEVER > 101 Last Admin: 09/30/18 11:44 Dose: 650 mg Albuterol/Ipratropium (Duoneb) 3 ml NEB Q4HRT PRN PRN Reason: Bronchospasm Bisacodyl (Dulcolax) 10 mg PO DAILYP PRN PRN Reason: Constipation Donepezil HCl (Aricept) 20 mg PO DAILY [facility] Enoxaparin Sodium (Lovenox) 40 mg SQ DAILY [facility] Last Admin: 09/30/18 08:39 Dose: 40 mg Famotidine (Pepcid) 20 mg PO HS [facility] Last Admin: 09/30/18 20:16 Dose: 20 mg Piperacillin Sod/Tazobactam (Sod 2.25 gm/ Dextrose) 50 mls @ 100 mls/hr IV Q8H [facility] Last Admin: 10/01/18 05:27 Dose: 100 mls/hr Levofloxacin (Levaquin) 750 mg in 150 mls @ 100 mls/hr IV Q48H [facility] Last Admin: 09/30/18 15:09 Dose: 100 mls/hr Memantine (Namenda) 10 mg PO BID [facility] Last Admin: 09/30/18 20:16 Dose: 10 mg Olanzapine (Zyprexa) 5 mg PO HS [facility] Last Admin: 09/30/18 20:17 Dose: 5 mg Ondansetron HCl (Zofran) 4 mg IV Q4HP PRN PRN Reason: Nausea And Vomiting Simvastatin (Zocor) 20 mg PO HS [facility] Last Admin: 09/30/18 20:17 Dose: 20 mg Sodium Chloride (Saline Flush) 10 ml IV Q8 [facility] Last Admin: 10/01/18 05:27 Dose: Not Given Medical - PN: A/P - Time Spent With Patient Total time spent is greater than 50% in coordination of care (as documented) at patient's floor/unit and/or counseling patient: - Narrative A/P Narrative: A: *UTI: Failed outpatient therapy *Sepsis: -leukocytosis improving, lactate now wnl -CT a/p no acute path *DG on CKD III: -1.6<2.0<1.8 -renal u/s ok, prerenal FENa *Generalized weakness: *Advanced Alzheimer's dementia: *PVD: *h/o CVA *h/o DVT after SDH surgery w/subsequent IVC filter placed *GERD P: -IVF's -Levaquin/zosyn, pending UA/BC -monitor UOP, f/u renal fxn -pt/ot, cm - -ppx: lovenox Medical - PN: Qual - VTE Deep Vein Thrombosis/Pulmonary Embolism Present on Admission: No
[2018-10-01] MEDS ORDERED: SODIUM CHLORIDE IV SCH ×2 (07:00→09:45)
[2018-10-01] MEDS: ENOXAPARIN 40 MG/0.4 ML SYRINGE SQ SCH (08:48)
[2018-10-01] MEDS: MEMANTINE 10 MG TABLET PO SCH ×2 (08:49→21:54)
[2018-10-01] MEDS ORDERED: DONEPEZIL 10 MG TABLET PO SCH (09:00)
[2018-10-01] MEDS ORDERED: IPRATROPIUM/ALBUTEROL 3 ML AMPUL.NEB NEB PRN (09:45)
[2018-10-01] MEDS ORDERED: ACETAMINOPHEN 325 MG TABLET PO PRN (09:45)
[2018-10-01] MEDS ORDERED: BISACODYL 5 MG TABLET PO PRN (09:45)
[2018-10-01] MEDS ORDERED: ONDANSETRON 4 MG/2 ML VIAL IV PRN (09:45)
--- NOTE | 2018-10-01 10:06 | Discharge Summary ---
Medical - DS: Prov Patient information: Note initiated : 10/01/18 at 10:03 am Service Date, if different from initiated Date: [] Patient: Yelitza Knight 88 y/o F admitted on 09/29/18 for Weakness, UTI. Chief Complaint: [] Date of admission: 09/29/18 14:26 Discharge date: 10/03/18 Primary care physician: Devon White Consults: 09/29/18 13:43 Consult to Physician [CONS] Stat Comment: Consulting Provider: Grant Martel Reason For Exam: Physician to Consult Medical - DS: Meds - Discharge Medications Prescriptions: Levofloxacin [Levaquin] 750 mg PO Q48H #1 tab Active and Home Medications: Home Medications cholecalciferol (vitamin D3) 2,000 unit capsule 6,000 unit PO QDAY 04/17/17 [ History Confirmed 09/30/18 Last Taken Unknown] multivitamin tablet 1 tab-cap PO QDAY 04/17/17 [History Confirmed 09/30/18 Last Taken Unknown] donepezil 10 mg tablet 20 mg PO DAILY tab 02/19/18 [History Confirmed 09/30/18 Last Taken Unknown] hydrocodone 5 mg-acetaminophen 325 mg tablet 1 tab PO .COMPLEX PRN #30 tab 03/23 [Rx Confirmed 09/30/18 Last Taken Unknown] memantine 10 mg tablet 10 mg PO BID #180 tab 03/23/18 [Rx Confirmed 09/30/18 Last Taken Unknown] omeprazole 20 mg capsule,delayed release 20 mg PO QDAY #90 cap 03/23/18 [Rx Confirmed 09/30/18 Last Taken Unknown] pravastatin 40 mg tablet 40 mg PO QHS #90 tab 06/01/18 [Rx Confirmed 09/30/18 Last Taken Unknown] doxycycline hyclate 100 mg tablet 100 mg PO bid #20 tab 08/21/18 [Rx Confirmed 09/30/18 Last Taken Unknown] nitrofurantoin monohydrate/macrocrystals 100 mg capsule 100 mg PO BID #14 cap [Rx Confirmed 09/30/18 Last Taken Unknown] Home Medications cholecalciferol (vitamin D3) 2,000 unit capsule 6,000 unit PO QDAY 04/17/17 [ History Confirmed 09/30/18 Last Taken Unknown] multivitamin tablet 1 tab-cap PO QDAY 04/17/17 [History Confirmed 09/30/18 Last Taken Unknown] donepezil 10 mg tablet 20 mg PO DAILY tab 02/19/18 [History Confirmed 09/30/18 Last Taken Unknown] hydrocodone 5 mg-acetaminophen 325 mg tablet 1 tab PO .COMPLEX PRN #30 tab 03/23 [Rx Confirmed 09/30/18 Last Taken Unknown] memantine 10 mg tablet 10 mg PO BID #180 tab 03/23/18 [Rx Confirmed 09/30/18 Last Taken Unknown] omeprazole 20 mg capsule,delayed release 20 mg PO QDAY #90 cap 03/23/18 [Rx Confirmed 09/30/18 Last Taken Unknown] pravastatin 40 mg tablet 40 mg PO QHS #90 tab 06/01/18 [Rx Confirmed 09/30/18 Last Taken Unknown] doxycycline hyclate 100 mg tablet 100 mg PO bid #20 tab 08/21/18 [Rx Confirmed 09/30/18 Last Taken Unknown] nitrofurantoin monohydrate/macrocrystals 100 mg capsule 100 mg PO BID #14 cap [Rx Confirmed 09/30/18 Last Taken Unknown] Levofloxacin [Levaquin] 750 mg PO Q48H #1 tab 10/01/18 [Rx Last Taken Unknown] Medical - DS: Hosp Hospital course: Ms. Knight is a 88 year old F Who presents after severe weakness found at home this morning. Patient was diagnosed with UTI about a week ago, do not know what the antibiotic was possibly it was Macrobid. Last night she was very weak and had a fall did not hit her head she was taken to [place] she got imaging of the brain and chest urinalysis was done which was concerning for untreated urinary tract infection she given IV fluids and given a prescription for Cipro. Family has not been able to fill the ciprofloxacin prescription yet this morning she was so weak she could not get up she seemed shaky a little bit more altered than usual she is cold and clammy per the hyster driver. History is obtained from the family and hyster driver as patient has advanced dementia and unable to give a history. Patient had a cold for the past few days developed a nonproductive cough. There is been no reported fevers. In the ER she was found to have acute kidney injury leukocytosis likely source urinary with clinical findings consistent with a sepsis syndrome. CT abdomen pelvis was done as well which was showed no acute pathology. 09/30 Patient extremely agitated this morning Zyprexa. Family bedside. Patient removed Sosa last night. Unable to gather ROS given advanced dementia 10/01 Patient slept better per nursing last night. Calm and cooperative this morning. Chattering quite a bit but I am unable to understand. Able to gather review of systems given the advanced dementia 10/02 Had a good night per nursing is patient sleeping well still sleeping. Did not wake her this morning. stable for discharge 10/03 poor sleep last night, now sleeping. stable for discharge. Discharge diagnosis: UTI failing outpatient therapy sepsis acute on chronic kidney disease gener - Time Spent with Patient Total time spent providing and/or coordinating discharge services: Greater than 30 minutes Medical - DS: Exam - Constitutional Vitals: Vital Signs Temp Pulse Resp BP BP Pulse Ox 10/01/18 07:58 98.3 F 104 H 18 151/72 90 10/01/18 07:17 104 H 20 92 10/01/18 04:00 97.7 F 98 H 22 144/80 95 09/30/18 23:04 98.4 F 104 H 22 159/75 95 09/30/18 19:15 97.7 F 98 H 24 H 176/81 97 09/30/18 15:27 98.2 F 84 18 155/79 98 09/30/18 11:54 98.3 F 80 18 161/80 97 Intake and Output 09/30/18 10/01/18 10/01/18 21:59 05:59 13:59 Intake Total 150 / 150 100 / 100 Output Total 201 / 201 Balance -51 / -51 100 / 100 -1 / -1 Intake: IV 50 / 50 100 / 100 Zosyn 2.25 gm In Dextrose 5% in 50 / 50 100 / 100 Water 50 ml @ 100 mls/hr IV Q8H [facility] Rx#:[id number] Oral 100 / 100 0 / 0 Output: Void Amount 200 / 200 # of times incontinent of urine Other: Meal Dinner Breakfast Percent of Meal Consumed 10% 10% Feeding Ability Total Assistance Total Assistance Weight 61.235 kg Medical - DS: Data Labs on day of discharge: Labs from last 24 hours 10/01/18 10/01/18 10/01/18 04:05 04:05 04:05 WBC RBC Hgb Hct MCV MCH MCHC RDW Plt Count MPV Gran % Lymph % (Auto) [place] % (Auto) Eos % (Auto) Baso % (Auto) Gran # Lymph # (Auto) [place] # (Auto) Eos # (Auto) Baso # (Auto) VBG Lactic Acid 1.1 Sodium 142 Potassium 3.3 Chloride 109 H Carbon Dioxide 21 L Anion Gap 12.0 BUN 36 H Creatinine 1.6 H GFR Calculation 29 Glucose 107 H Calcium 9.3 C-Reactive Protein 3.1 H Procalcitonin 0.29 Ur Random Creatinine Ur Random Sodium 10/01/18 09/30/18 09/30/18 04:05 12:00 12:00 WBC 12.1 H RBC 3.80 L Hgb 11.4 L Hct 33.3 L MCV 87.6 MCH 29.9 MCHC 34.1 RDW 14.0 Plt Count 165 MPV 8.1 Gran % 61.8 Lymph % (Auto) 13.6 L [place] % (Auto) 10.4 Eos % (Auto) 14.0 H Baso % (Auto) 0.2 Gran # 7.4 Lymph # (Auto) 1.6 [place] # (Auto) 1.3 H Eos # (Auto) 1.7 H Baso # (Auto) 0 VBG Lactic Acid Sodium 140 Potassium 3.9 Chloride 105 Carbon Dioxide 21 L Anion Gap 14.0 BUN 46 H Creatinine 1.9 H GFR Calculation 23 Glucose 125 H Calcium 9.4 C-Reactive Protein Procalcitonin 0.51 Ur Random Creatinine Ur Random Sodium 09/30/18 09/30/18 12:00 11:14 WBC RBC Hgb Hct MCV MCH MCHC RDW Plt Count MPV Gran % Lymph % (Auto) [place] % (Auto) Eos % (Auto) Baso % (Auto) Gran # Lymph # (Auto) [place] # (Auto) Eos # (Auto) Baso # (Auto) VBG Lactic Acid 2.3 H Sodium Potassium Chloride Carbon Dioxide Anion Gap BUN Creatinine GFR Calculation Glucose Calcium C-Reactive Protein Procalcitonin Ur Random Creatinine 127.7 Ur Random Sodium < 20 Preliminary micro results at discharge 09/29/18 12:10 Blood Culture - Preliminary Blood 09/29/18 11:55 Blood Culture - Preliminary Blood Medical - DS: A/P - Patient/Caregiver Discharge Instructions Activity: as per physical therapy Diet: Cardiac Additional Instructions: Referral to see Dr. Mercer 5-14 days for Hematuria per PCP request. Prescriptions: Levofloxacin [Levaquin] 750 mg PO Q48H #1 tab - Follow up Plan Follow up with: Devon White MD [Primary Care Provider] - Disposition: Xfer SNF Prognosis: Fair Rehab Potential: Fair I certify that the patient requires SNF services: Yes Overall status at discharge: patient is progressing back to baseline Medical - DS: Qual - VTE Deep Vein Thrombosis/Pulmonary Embolism Present on Admission: No
[2018-10-01] MEDS ORDERED: PIPERACILLIN SODIUM/TAZOBACTAM 2.25 GM in DEXTROSE 5% IN WATER 50 ML IV SCH (14:00)
[2018-10-01] MEDS: AMOXICILLIN/POTASSIUM CLAV 875 MG TABLET PO SCH (17:49)
[2018-10-01] MEDS ORDERED: OLANZapine 5 MG TABLET PO SCH (21:00)
[2018-10-01] MEDS: FAMOTIDINE 20 MG TABLET PO SCH (21:55)
[2018-10-01] MEDS: SIMVASTATIN 20 MG TABLET PO SCH (21:55)
[2018-10-02] MEDS: 0.9 % SODIUM CHLORIDE 10 ML SYRINGE IV SCH ×3 (05:25→20:26)
[2018-10-02 06:30] LABS: Basophils # (Auto) 0 K/mcL (0.0-0.3); Basophils % (Auto) 0.3 % (0.0-2.0); Eosinophils # (Auto) 0.9 K/mcL (0.0-0.7); Eosinophils % (Auto) 7.2 % (0.0-7.0); Granulocytes % (Auto) 70.4 % (38.0-78.0); Lymphocytes # (Auto) 1.7 K/mcL (1.5-4.8); Lymphocytes % (Auto) 13.4 % (15.5-49.0); Mean Cell Volume 88.3 fL (80.0-100.0); Mean Corpuscular HGB Conc 33.8 g/dL (31.0-36.0); Mean Corpuscular Hemoglobin 29.8 pg (26.0-34.0); Monocytes # (Auto) 1.1 K/mcL (0.1-0.9); Monocytes % (Auto) 8.7 % (1.0-12.0); Platelet Count 167 K/mcL (140-440); RBC 3.62 M/mcL (4.00-5.20); Red Cell Distribution Width 14.3 % (11.5-14.5)
[2018-10-02 06:58] LABS: ALT/SGPT 35 U/l (0-40); Albumin 2.9 gm/dL (3.2-5.2); Albumin/Globulin Ratio 1.2 (1.0-2.3); Alkaline Phosphatase 65 U/L (39-117); Bilirubin,Direct < 0.2 mg/dL (0.0-0.3); Blood Urea Nitrogen 24 mg/dl (8-23); Gamma Glutamyl Transpeptidase 25 U/L (5-36); Uric Acid 5.4 mg/dL (2.5-8.0)
--- NOTE | 2018-10-02 07:00 | Internal Med Progress Note ---
Medical - PN: Subj Patient information: Note initiated : 10/02/18 at 6:57 am Service Date, if different from initiated Date: [] Patient: Yelitza Knight a 88 y/o F admitted on 09/29/18 for Weakness, UTI. Chief Complaint: [] Interval history: Ms. Knight is a 88 year old F Who presents after severe weakness found at home this morning. Patient was diagnosed with UTI about a week ago, do not know what the antibiotic was possibly it was Macrobid. Last night she was very weak and had a fall did not hit her head she was taken to [facility] she got imaging of the brain and chest urinalysis was done which was concerning for untreated urinary tract infection she given IV fluids and given a prescription for Cipro. Family has not been able to fill the ciprofloxacin prescription yet this morning she was so weak she could not get up she seemed shaky a little bit more altered than usual she is cold and clammy per the assistant prosecuting attorney. History is obtained from the family and assistant prosecuting attorney as patient has advanced dementia and unable to give a history. Patient had a cold for the past few days developed a nonproductive cough. There is been no reported fevers. In the ER she was found to have acute kidney injury leukocytosis likely source urinary with clinical findings consistent with a sepsis syndrome. CT abdomen pelvis was done as well which was showed no acute pathology. 09/30 Patient extremely agitated this morning Zyprexa. Family bedside. Patient removed Sosa last night. Unable to gather ROS given advanced dementia 10/01 Patient slept better per nursing last night. Calm and cooperative this morning. Chattering quite a bit but I am unable to understand. Able to gather review of systems given the advanced dementia 10/02 Had a good night per nursing is patient sleeping well still sleeping. Did not wake her this morning. - Constitutional Vitals: Vital Signs Temp Pulse Resp BP Pulse Ox 98.4 F 97 H 14 131/67 94 10/02/18 04:36 10/02/18 04:36 10/02/18 04:36 10/02/18 04:36 10/02/18 04:36 Period Temp Pulse Resp BP Sys/Martel Pulse Ox Last 24 Hr 97.5 F-99 F 87-104 14-20 112-151/62-75 90-95 Intake and Output 10/01/18 10/02/18 10/02/18 21:59 05:59 13:59 Intake Total 1000 / 1000 0 / 0 Output Total Balance 998 / 998 - Weight 59.874 kg Intake & Output: Intake & Output 10/01/18 10/02/18 10/02/18 21:59 05:59 13:59 Intake Total 1000 / 1000 0 / 0 Output Total Balance 8 / 998 - Weight 59.874 kg Intake: IV 1000 / 1000 Oral 0 / 0 Output: # of times incontinent of urine Other: Urine Odor Strong Exam: General: Sleeping, No acute Distress, Eyes/N/T:, Head/Neck: neck supple, CV: RRR, 2/6 sm, normal s1/s2 Pulm: Clear b/l, no wheezing/rhonchi/rales Abd: soft, nontender, +BS x4 Ext: no clubbing/cyanosis, trace b/l LE edema Neuro: Sleeping, moves extremities spontaneously. Advanced alzheimer's Skin: warm/dry Medical - PN: Obj Da - Labs CBC & Chem 7: 10/02/18 04:28 10/02/18 04:20 Labs: Abnormal Lab Results 10/02/18 10/01/18 10/01/18 04:28 04:05 04:05 WBC 12.8 H 12.1 H RBC 3.62 L 3.80 L Hgb 10.8 L 11.4 L Hct 32.0 L 33.3 L RDW Gran % Lymph % (Auto) 13.4 L 13.6 L Eos % (Auto) 7.2 H 14.0 H Gran # 9.0 H Lymph # (Auto) [place] # (Auto) 1.1 H 1.3 H Eos # (Auto) 0.9 H 1.7 H VBG Lactic Acid Chloride 109 H Carbon Dioxide 21 L Anion Gap BUN 36 H Creatinine 1.6 H Glucose 107 H AST ALT C-Reactive Protein 3.1 H Triglycerides Urine Protein Urine Occult Blood Ur Leukocyte Esterase Urine RBC Urine WBC Hyaline Casts Urine Mucus 09/30/18 09/30/18 09/30/18 12:00 12:00 03:55 WBC RBC Hgb Hct RDW Gran % Lymph % (Auto) Eos % (Auto) Gran # Lymph # (Auto) [place] # (Auto) Eos # (Auto) VBG Lactic Acid 2.3 H 2.4 H Chloride Carbon Dioxide 21 L Anion Gap BUN 46 H Creatinine 1.9 H Glucose 125 H AST ALT C-Reactive Protein Triglycerides Urine Protein Urine Occult Blood Ur Leukocyte Esterase Urine RBC Urine WBC Hyaline Casts Urine Mucus 09/30/18 09/30/18 09/29/18 03:55 03:55 14:13 WBC 14.0 H RBC Hgb Hct RDW Gran % Lymph % (Auto) 8.9 L Eos % (Auto) 10.3 H Gran # 9.9 H Lymph # (Auto) 1.3 L [place] # (Auto) 1.4 H Eos # (Auto) 1.4 H VBG Lactic Acid 2.1 H Chloride Carbon Dioxide 15 L Anion Gap 18.0 H BUN 48 H Creatinine 2.0 H Glucose 169 H AST ALT 55 H C-Reactive Protein Triglycerides 191 H Urine Protein Urine Occult Blood Ur Leukocyte Esterase Urine RBC Urine WBC Hyaline Casts Urine Mucus 09/29/18 09/29/18 09/29/18 12:16 10:20 10:20 WBC 18.5 H RBC Hgb Hct RDW 14.8 H Gran % 78.2 H Lymph % (Auto) 7.2 L Eos % (Auto) 8.4 H Gran # 14.5 H Lymph # (Auto) 1.3 L [place] # (Auto) 1.2 H Eos # (Auto) 1.6 H VBG Lactic Acid Chloride Carbon Dioxide 17 L Anion Gap 20.0 H BUN 43 H Creatinine 1.8 H Glucose 174 H AST 46 H ALT 67 H C-Reactive Protein Triglycerides Urine Protein 100 A Urine Occult Blood >=1.0 A Ur Leukocyte Esterase 25 A Urine RBC 8 H Urine WBC 16 H Hyaline Casts 141 H Urine Mucus Many A 09/29/18 09/29/18 10:13 10:13 WBC RBC Hgb Hct RDW Gran % Lymph % (Auto) Eos % (Auto) Gran # Lymph # (Auto) [place] # (Auto) Eos # (Auto) VBG Lactic Acid 2.4 H Chloride Carbon Dioxide Anion Gap BUN Creatinine Glucose AST ALT C-Reactive Protein 8.7 H Triglycerides Urine Protein Urine Occult Blood Ur Leukocyte Esterase Urine RBC Urine WBC Hyaline Casts Urine Mucus Meds: Medications Acetaminophen (Tylenol) 650 mg PO Q6HP PRN PRN Reason: PAIN/FEVER > 101 Albuterol/Ipratropium (Duoneb) 3 ml NEB Q4HRT PRN PRN Reason: Bronchospasm Amoxicillin/Clavulanate Potassium ([facility]mentin) [facility] Last Admin: 10/01/18 17:49 Dose: 875 mg Bisacodyl (Dulcolax) 10 mg PO DAILYP PRN PRN Reason: Constipation Donepezil HCl (Aricept) 20 mg PO DAILY [facility] Enoxaparin Sodium (Lovenox) 40 mg SQ DAILY [facility] Famotidine (Pepcid) 20 mg PO HS [facility] Last Admin: 10/01/18 21:55 Dose: Not Given Guaifenesin (Robitussin) 100 mg PO Q6HP PRN PRN Reason: Congestion Levofloxacin (Levaquin) 750 mg PO Q48H [facility] Memantine (Namenda) 10 mg PO BID [facility] Last Admin: 10/01/18 21:54 Dose: Not Given Olanzapine (Zyprexa) 2.5 mg PO BID [facility] Ondansetron HCl (Zofran) 4 mg IV Q4HP PRN PRN Reason: Nausea And Vomiting Simvastatin (Zocor) 20 mg PO HS [facility] Last Admin: 10/01/18 21:55 Dose: Not Given Sodium Chloride (Saline Flush) 10 ml IV Q8 [facility] Last Admin: 10/02/18 05:25 Dose: Not Given Medical - PN: A/P - Time Spent With Patient Total time spent is greater than 50% in coordination of care (as documented) at patient's floor/unit and/or counseling patient: - Narrative A/P Narrative: A: *UTI: Failed outpatient therapy -BC neg, recent outpt cx was e. coli and before that kluyvera a *Sepsis: improved -leukocytosis improving, lactate now wnl -CT a/p no acute path -UC/BC neg *DG on CKD III: -1.6<2.0<1.8 -renal u/s ok, prerenal FENa *Generalized weakness: *Advanced Alzheimer's dementia: *PVD: *h/o CVA *h/o DVT after SDH surgery w/subsequent IVC filter placed *GERD P: -lost IV access -Levaquin/zosyn, pending UA/BC -monitor UOP, f/u renal fxn -pt/ot, cm - -ppx: lovenox d/c planning Medical - PN: Qual - VTE Deep Vein Thrombosis/Pulmonary Embolism Present on Admission: No
[2018-10-02] MEDS ORDERED: LEVOFLOXACIN 750 MG TABLET PO SCH (09:00)
[2018-10-02] MEDS ORDERED: LEVOFLOXACIN 750 MG/150 ML BAG IV SCH (09:00)
[2018-10-02] MEDS: OLANZapine 5 MG TABLET PO SCH ×3 (09:57→20:26)
[2018-10-02] MEDS: ENOXAPARIN 40 MG/0.4 ML SYRINGE SQ SCH (09:57)
[2018-10-02] MEDS: DONEPEZIL 10 MG TABLET PO SCH (09:57)
[2018-10-02] MEDS: MEMANTINE 10 MG TABLET PO SCH ×3 (09:57→20:25)
[2018-10-02] MEDS: AMOXICILLIN/POTASSIUM CLAV 875 MG TABLET PO SCH ×2 (09:57→17:54)
[2018-10-02] MEDS: FAMOTIDINE 20 MG TABLET PO SCH ×2 (18:48→20:25)
[2018-10-02] MEDS: SIMVASTATIN 20 MG TABLET PO SCH ×2 (18:49→20:26)
[2018-10-03] MEDS: 0.9 % SODIUM CHLORIDE 10 ML SYRINGE IV SCH (04:42)
[2018-10-03] MEDS: AMOXICILLIN/POTASSIUM CLAV 875 MG TABLET PO SCH (09:20)
[2018-10-03] MEDS: DONEPEZIL 10 MG TABLET PO SCH (09:21)
[2018-10-03] MEDS: MEMANTINE 10 MG TABLET PO SCH (09:22)
[2018-10-03] MEDS: OLANZapine 5 MG TABLET PO SCH (09:28)
[2018-10-03] MEDS: ENOXAPARIN 40 MG/0.4 ML SYRINGE SQ SCH (09:31)
== END 2018-10-03 09:50 | DRG 872 ==
LOC: ED 09:46 → ICU 14:26 → MEDSUR 17:27
PROVIDERS: ADMIT Internal Medicine; ATTEND Internal Medicine
CPT/HCPCS: 84145; 97167; 99223; 99231; A6213; J0696; J1650; J1956; J2543; J7030; J7060; J7120

== ENCOUNTER 2020-07-03 17:48 | Inpatient (IN) ==
[2020-07-03] MEDS ORDERED: 0.9 % SODIUM CHLORIDE 1,000 ML IV ONE (18:02)
[2020-07-03] MEDS ORDERED: cefTRIAXone 1 GM VIAL IV ONE (18:02)
--- NOTE | 2020-07-03 21:14 | Emergency Department Note ---
Recheck HPI General Chief Complaint: Recheck/Abnormal Lab/Rx Stated Complaint: sent from [facility] for abnormal labs. Time Seen by Provider: 07/03/20 18:01 Source: patient Mode of arrival: ambulatory Limitations: altered mental status (Severe dementia which is baseline. Patient unable to give any history whatsoever) History of Present Illness HPI Narrative: Narrative: 89-year-old female presents after being sent here from [facility]. She has severe dementia and is not able to communicate at all. Her son is with her. The son states that she does have severe dementia but over the last week or so she is more lethargic than usual. Falls asleep and decreased appetite. Today she vomited once and is having a hard time keeping any meds down. She also seems a little bit more confused and lethargic than usual. [facility] and originally did not think anything was wrong and thought it was mostly just smoke. However they later called with results and her white blood cell count was 14, she had a UTI, as well as pneumonia so they sent her to the ER for further evaluation. We did review her labs including a white blood cell count of greater than 14,000 this morning. CMP is unremarkable other than a glucose of 134 and BUN of 26. Patient is unable to give us any history or even tell us how she is feeling at this point. Son states he does not know either because she just cannot communicate with them which is her baseline. He states the reason they decided to take her in was because of the episode of vomiting as well as her just not being herself especially the last 48 hours. They have checked her temperature multiple times and she has not had a fever as far as he knows. She does live over in [place] with her daughter and they also have caregivers that come in and help. Related Data Home Medications Medication Instructions Recorded Confirmed cholecalciferol (vitamin D3) 50 6,000 unit PO QDAY 04/17/17 11/24/18 mcg (2,000 unit) capsule multivitamin 1 tab-cap PO QDAY 04/17/17 11/24/18 donepezil 10 mg tablet 20 mg PO DAILY tab 02/19/18 11/24/18 Previous Rx's Medication Instructions Recorded memantine 10 mg tablet 10 mg PO BID #180 tab 03/23/18 omeprazole 20 mg capsule,delayed 20 mg PO QDAY #90 cap 03/23/18 release pravastatin 40 mg tablet 40 mg PO QHS #90 tab 06/01/18 nitrofurantoin 100 mg PO BID #14 cap 09/25/18 monohydrate/macrocrystals 100 mg capsule hydrocodone-acetaminophen 1 tab PO QHS #10 tab 10/03/18 trazodone 50 mg tablet 25 mg PO QDAY #60 tab 10/09/18 quetiapine 25 mg PO HS #10 tab 12/06/18 Allergies Allergy/AdvReac Type Severity Reaction Status Date / Time Sulfa (Sulfonamide Allergy Mild UNKNOWN Verified 07/03/20 13:15 Antibiotics) Thiazides Allergy Mild ELEVATED Verified 07/03/20 13:15 WBC'S Erythromycin Base Allergy Unknown UNKNOWN Verified 07/03/20 13:15 Review of Systems ROS ROS Narrative: Narrative: All systems ED: reviewed and negative except as stated. [facility] Narrative Patient History Narrative: Narrative: Medical/Surgical/Family History All Active Problems (Updated 07/03/20 @ 21:14 by FANI Venegas) Pneumonia (Acute) Dementia (Acute) Acute UTI (Acute) Nausea & vomiting (Acute) Cough (Acute) Fatigue (Acute) Altered mental status (Acute) Generalized weakness (Acute) Cellulitis of right lower leg (Acute) Sinus pause (Acute) Acute alteration in mental status (Acute) Toe pain (Acute) Acute kidney injury (Acute) SIRS (systemic inflammatory response syndrome) (Acute) Fall (Acute) UTI (urinary tract infection) (Acute) Cellulitis (Acute) Hematuria (Acute) Anal fissure (Acute) Rectal prolapse (Acute) Hematochezia (Acute) Renal artery stenosis, [place], bilateral (Acute) Dilated bile duct (Acute) Diverticulosis (Acute) Varices of other sites (Acute) Diverticulitis (Chronic) Osteoporosis (Chronic) Dementia (Chronic) Stroke (Chronic) Primary progressive aphasia (Chronic) Osteoarthrosis (Chronic) History of intravascular stent placement (Chronic) Stress incontinence, female (Chronic) Peripheral vascular disease (Chronic) Lacunar infarction (Chronic) Hypertension, essential (Chronic) Hyperlipemia (Chronic) Heart murmur (Chronic) Esophageal reflux (Chronic) Atherosclerosis (Chronic) Aortic stenosis (Chronic) Medical History Accidental overdose (Resolved) Aortic stenosis (Chronic) 12/30/2014 - Dr. Humphreys Atherosclerosis (Chronic) of extremities Back Pain (Resolved) Cough (Acute) Deep venous thrombosis (Resolved) Degenerative joint disease (Resolved) Knees Dementia (Chronic) Dermatitis (Resolved) Stasis Dermatitis Discitis of lumbar region (Resolved) Diverticulitis (Chronic) Diverticulitis (Resolved) Esophageal reflux (Chronic) Fatigue (Acute) Heart murmur (Chronic) Suspect mitral origin 12/30/2014 - Dr. Humphreys Hyperlipemia (Chronic) Hypertension, essential (Chronic) Lacunar infarction (Chronic) Muscle spasm of right shoulder (Resolved) Nontraumatic rupture of Achilles tendon (Resolved) Peripheral vascular disease (Chronic) Primary progressive aphasia (Chronic) Stress incontinence, female (Chronic) Stroke (Chronic) Subdural hematoma (Resolved) Thrombosis/embolism, venous (Resolved) Urgency of urination (Resolved) Vaginal vault prolapse after hysterectomy (Resolved 03/16/15) Intermittent Surgical History History of discectomy (Resolved) Lumbar History of hernia surgery (Resolved 05/06/14) Ventral History of hysterectomy (Resolved) 1971 History of hysterectomy (Acute) History of intravascular stent placement (Chronic) Peripheral Vascular Disease -Dr Romo History of knee replacement (Resolved) Left History of knee replacement (Resolved) Right History of knee replacement (Acute) History of oophorectomy (Resolved) 1971 With Hysterectomy Status post tendon repair (Resolved) Family History Unknown Cardiac disease Essential hypertension Malignant neoplasm Social History Smoking Status: Former smoker Alcohol Intake Frequency: does not drink Substance Use: does not use Exam Narrative Narrative: Narrative: General Limitations: altered mental status (Severe dementia which is baseline. Patient unable to give any history whatsoever) General appearance: Present alert and other (Patient answers yes or no but not appropriately and she sings and smiles.) Head Head: Present atraumatic Eye Eye: Present normal appearance; Absent conjunctival injection ENT ENT: Present normal exam, normal oropharynx, mucous membranes moist, TM's normal bilaterally and normal external ear exam Neck Neck: Present normal inspection and trachea midline; Absent lymphadenopathy Chest Chest: Present symmetric chest wall rise Respiratory Respiratory: Present decreased breath sounds (Diminished in the bases bilater ally and occasional cough present); Absent respiratory distress, rales/crackles, wheezes, stridor and accessory muscle use Cardiovascular Cardiovascular: Present regular rate and normal heart sounds Adbominal Abdominal: Present soft, normal bowel sounds and other (Please see urinalysis); Absent distention and tenderness Extremities Extremities: Present normal inspection; Absent pedal edema Neurological Neurological: Present alert; Absent oriented X3 Skin Skin: Present warm, dry and intact Course Course Course Narrative: @ 2129 Dr. Mckinney, hospitalist agrees to accept pt Vital Signs Vital signs: Vital Signs Temperature 97.8 F 07/03/20 17:48 Pulse Rate 77 07/03/20 17:48 Respiratory Rate 18 07/03/20 17:48 Blood Pressure 169/80 07/03/20 17:48 Pulse Oximetry (%) 94 07/03/20 17:48 Temperature 97.8 F 07/03/20 17:48 Pulse Rate 66 07/03/20 21:22 Respiratory Rate 16 07/03/20 21:22 Blood Pressure 153/77 07/03/20 21:22 Pulse Oximetry (%) 96 07/03/20 21:22 MDM MDM Narrative Medical decision making narrative: Narrative: Patient with elevated white blood cell count of 14,000. She does have a UTI as well as pneumonia. The family would really like her to be admitted and receive some IV antibiotics which I agree is probably a good idea under observation for short period of time. She is unable to take oral meds well at home especially right now due to vomiting. At 2100 we did put in a bed request and request to talk to the hospitalist. Lab Data Labs: Lab Results 07/03/20 Range/Units 18:19 VBG Lactic Acid 1.6 (0.5-2.0) mmol/L Discharge Plan Patient/Caregiver Discharge Instructions Pt seen by [facility]TER/PA only: Yes Clinical Impression: Pneumonia, Dementia, Acute UTI, Nausea & vomiting Patient Disposition: Xfer As Outpt/Obs ([facility]) Condition: Fair Follow up with: Devon White MD [Primary Care Provider] - Prescriptions: No Action memantine 10 mg tablet 10 mg PO BID Qty: 180 RF: 2 omeprazole 20 mg capsule,delayed release(DR/EC) 20 mg PO QDAY Qty: 90 RF: 3 pravastatin 40 mg tablet 40 mg PO QHS Qty: 90 RF: 2 nitrofurantoin monohyd/m-cryst [Macrobid] 100 mg capsule 100 mg PO BID Qty: 14 RF: 0 trazodone 50 mg tablet 25 mg PO QDAY Qty: 60 RF: 2 multivitamin tablet 1 tab-cap PO QDAY RF: 0 cholecalciferol (vitamin D3) 2,000 unit capsule 6,000 unit PO QDAY RF: 0 donepezil 10 mg tablet 20 mg PO DAILY RF: 0 hydrocodone-acetaminophen 1 TAB tablet 1 tab PO QHS Qty: 10 RF: 0 quetiapine 25 MG tablet 25 mg PO HS Qty: 10 RF: 0
[2020-07-03] MEDS ORDERED: IPRATROPIUM/ALBUTEROL 3 ML AMPUL.NEB NEB PRN ×2 (22:07→23:46)
[2020-07-03] MEDS ORDERED: QUEtiapine 25 MG TABLET PO PRN ×2 (22:13→23:46)
[2020-07-03] MEDS ORDERED: LACTATED RINGERS 1,000 ML IV SCH (22:15)
--- NOTE | 2020-07-03 22:20 | Internal Med History&Physical ---
HPI History of Present Illness Patient information: Note initiated : 07/03/20 at 10:17 pm Service Date, if different from initiated Date: [] Patient: Yelitza Knight a 89 y/o F admitted on for sent from [facility] for abnormal labs.. Chief Complaint: [] History of present illness: Ms. Knight is a 89 year old F with a history of severe dementia who was brought to the ER due to UTI. Patient has a severe dementia and all medical history is obtained from son and chart. Last week patient was found to decreased appetite and more confusion. Today patient vomited once and more lethargic. She initially was a brother to the [facility]. Over there she was found to have leukocytosis, 14 and UTI. So she was sent to our ER from [facility]. In the ER, chest x-ray showed bilateral pneumonia. 1 L normal saline and 1 dose of ceftriaxone were given in the ER. When I saw this patient in the ER, her son stated with her in her room. Both the son and daughter are POA. Patient lives with daughter. Son told me that they do not want to send her to any facilities and that they would like her to be discharged home. Review of Systems ROS unobtainable: due to mental status PFSH PFSH All Active Problems Pneumonia (Acute) Dementia (Acute) Acute UTI (Acute) Nausea & vomiting (Acute) Cough (Acute) Fatigue (Acute) Altered mental status (Acute) Generalized weakness (Acute) Cellulitis of right lower leg (Acute) Sinus pause (Acute) Acute alteration in mental status (Acute) Toe pain (Acute) Acute kidney injury (Acute) SIRS (systemic inflammatory response syndrome) (Acute) Fall (Acute) UTI (urinary tract infection) (Acute) Cellulitis (Acute) Hematuria (Acute) Anal fissure (Acute) Rectal prolapse (Acute) Hematochezia (Acute) Renal artery stenosis, [place], bilateral (Acute) Dilated bile duct (Acute) Diverticulosis (Acute) Varices of other sites (Acute) Diverticulitis (Chronic) Osteoporosis (Chronic) Dementia (Chronic) Stroke (Chronic) Primary progressive aphasia (Chronic) Osteoarthrosis (Chronic) History of intravascular stent placement (Chronic) Stress incontinence, female (Chronic) Peripheral vascular disease (Chronic) Lacunar infarction (Chronic) Hypertension, essential (Chronic) Hyperlipemia (Chronic) Heart murmur (Chronic) Esophageal reflux (Chronic) Atherosclerosis (Chronic) Aortic stenosis (Chronic) Medical History Accidental overdose (Resolved) Aortic stenosis (Chronic) 12/30/2014 - Dr. Humphreys Atherosclerosis (Chronic) of extremities Back Pain (Resolved) Cough (Acute) Deep venous thrombosis (Resolved) Degenerative joint disease (Resolved) Knees Dementia (Chronic) Dermatitis (Resolved) Stasis Dermatitis Discitis of lumbar region (Resolved) Diverticulitis (Chronic) Diverticulitis (Resolved) Esophageal reflux (Chronic) Fatigue (Acute) Heart murmur (Chronic) Suspect mitral origin 12/30/2014 - Dr. Humphreys Hyperlipemia (Chronic) Hypertension, essential (Chronic) Lacunar infarction (Chronic) Muscle spasm of right shoulder (Resolved) Nontraumatic rupture of Achilles tendon (Resolved) Peripheral vascular disease (Chronic) Primary progressive aphasia (Chronic) Stress incontinence, female (Chronic) Stroke (Chronic) Subdural hematoma (Resolved) Thrombosis/embolism, venous (Resolved) Urgency of urination (Resolved) Vaginal vault prolapse after hysterectomy (Resolved 03/16/15) Intermittent Surgical History History of discectomy (Resolved) Lumbar History of hernia surgery (Resolved 05/06/14) Ventral History of hysterectomy (Resolved) 1971 History of hysterectomy (Acute) History of intravascular stent placement (Chronic) Peripheral Vascular Disease -Dr Romo History of knee replacement (Resolved) Left History of knee replacement (Resolved) Right History of knee replacement (Acute) History of oophorectomy (Resolved) 1970 With Hysterectomy Status post tendon repair (Resolved) Family History Unknown Cardiac disease Essential hypertension Malignant neoplasm Social History education level: college occupational status: retired 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 smoking status: Former smoker alcohol intake frequency: does not drink substance use type: does not use MEDS/ALLERGIES Home Medications and Allergies Home Medications Medication Instructions Recorded Confirmed Type cholecalciferol (vitamin D3) 50 6,000 unit PO QDAY 04/17/17 11/24/18 History mcg (2,000 unit) capsule multivitamin 1 tab-cap PO QDAY 04/17/17 11/24/18 History donepezil 10 mg tablet 20 mg PO DAILY tab 02/19/18 11/24/18 History memantine 10 mg tablet 10 mg PO BID #180 tab 03/23/18 11/24/18 Rx omeprazole 20 mg capsule,delayed 20 mg PO QDAY #90 cap 03/23/18 11/24/18 Rx release pravastatin 40 mg tablet 40 mg PO QHS #90 tab 06/01/18 11/24/18 Rx nitrofurantoin 100 mg PO BID #14 cap 09/25/18 11/24/18 Rx monohydrate/macrocrystals 100 mg capsule hydrocodone-acetaminophen 1 tab PO QHS #10 tab 10/03/18 11/24/18 Rx trazodone 50 mg tablet 25 mg PO QDAY #60 tab 10/09/18 11/24/18 Rx quetiapine 25 mg PO HS #10 tab 12/06/18 Rx Allergies Allergy/AdvReac Type Severity Reaction Status Date / Time Sulfa (Sulfonamide Allergy Mild UNKNOWN Verified 07/03/20 13:15 Antibiotics) Thiazides Allergy Mild ELEVATED Verified 07/03/20 13:15 WBC'S Erythromycin Base Allergy Unknown UNKNOWN Verified 07/03/20 13:15 EXAM Constitutional Vitals: Temp Pulse Resp BP Pulse Ox 97.8 F 66 16 153/77 96 07/03/20 17:48 07/03/20 21:22 07/03/20 21:22 07/03/20 21:22 07/03/20 21:22 Additional findings Additional findings: General - No acute distress. Nonverbal due to severe dementia. Eyes -no conjunctiva injection. ENT no rhinorrhea, oral mucosa dry Neck no JVD, no thyromegaly Respiratory: Lungs - diminshed BS, no use of accessary muscles. Cardiovascular - RRR no m/r/g, GI - Normal bowel sounds, no distended, soft. Extremeties - No edema, cyanosis or clubbing. focal erythema over right lower leg. Hemo/lymphatic/immune no lymphadenopathy Neurological awake, nonverbal. Psychiatry unable to complete due to dementia DATA Data Completed and Pending Labs: Labs from last 24 hours 07/03/20 18:19 VBG Lactic Acid 1.6 A/P Narrative A/P Narrative: 1. AMS Etiology unknown. Most likely due to infection and dehydration. I would not like her to order CT of head Closely monitor 2. Pneumonia, bilateral lower lobes, aspiration Chest x-ray showed Moderate bilateral lower lobe infiltrates and small effusions. Consider aspiration Blood culture Sputum culture MRSA screen N.p.o. until passing swallow screen by nurse ST consult Zosyn 3. Acute UTI Zosyn 4. Severe dementia Continue home medication 5. Cellulitis of right lower leg Continue Zosyn 6. Dehydration IV fluid 7. DVT prophylaxis: Heparin 8. CODE STATUS: Limited code -as per son, CPR is fine but no shock or intubation. Time Spent With Patient Time: Total time spent is greater than 50% in coordination of care (as documented) at patient's floor/unit and/or counseling patient:
--- NOTE | 2020-07-03 22:39 | Event Note ---
Event Note Event Note: Advance care plan: Patient has a severe dementia. I discussed her CODE STATUS with the son in patient's room. The son told me that he and the daughter are POA. I explained the process regarding CPR, defibrillation, shock, and intubation to the patient and son. Son told me that both he and her sister agreed with CRP but no shock and no intubation.
[2020-07-04] MEDS: PIPERACILLIN SODIUM/TAZOBACTAM 3.375 GM in DEXTROSE 5% IN WATER 50 ML IV SCH ×5 (00:22→21:57)
[2020-07-04] MEDS: LACTATED RINGERS 1,000 ML IV SCH ×2 (00:23→13:50)
[2020-07-04 00:32] LABS: Hemoglobin A1C 5.5 % HGB (4.0-6.0)
[2020-07-04] MEDS: 0.9 % SODIUM CHLORIDE 10 ML SYRINGE IV SCH ×3 (04:22→21:58)
[2020-07-04] MEDS: ONDANSETRON 4 MG/2 ML VIAL IV SCH ×3 (05:08→21:58)
[2020-07-04] MEDS ORDERED: ONDANSETRON 4 MG/2 ML VIAL ONE (05:13)
[2020-07-04] MEDS ORDERED: ONDANSETRON 4 MG/2 ML VIAL IV SCH (06:00)
[2020-07-04] MEDS ORDERED: 0.9 % SODIUM CHLORIDE 10 ML SYRINGE IV SCH (06:00)
[2020-07-04 06:35] LABS: Basophils # (Auto) 0.07 K/mcL (0.00-0.30); Basophils % (Auto) 0.7 % (0.0-2.0); Eosinophils # (Auto) 0.67 K/mcL (0.00-0.70); Eosinophils % (Auto) 6.4 % (0.0-7.0); Hematocrit 39.5 % (34.1-44.9); Hemoglobin 12.7 g/dL (11.2-15.7); Lymphocytes # (Auto) 2.29 K/mcL (1.50-4.80); Lymphocytes % (Auto) 21.8 % (15.5-49.0); Mean Cell Volume 89.4 fL (80.0-100.0); Mean Corpuscular HGB Conc 32.2 g/dL (31.0-36.0); Mean Platelet Volume 9.6 fL (7.4-10.4); Monocytes # (Auto) 1.17 K/mcL (0.10-0.90); Monocytes % (Auto) 11.1 % (1.0-12.0); Platelet Count 347 K/mcL (140-440); RBC 4.42 M/mcL (3.59-5.38); Red Cell Distribution Width 13.1 % (11.5-14.5); WBC 10.5 K/mcL (4.50-11.00)
[2020-07-04 07:02] LABS: Thyroid Stimulating Hormone 1.94 uIU/ml (0.27-5.01)
[2020-07-04 07:15] LABS: ALT/SGPT 26 U/l (0-40); AST/SGOT 22 U/l (0-37); Albumin 3.1 gm/dL (3.2-5.2); Albumin/Globulin Ratio 1.1 (1.0-2.3); Alkaline Phosphatase 66 U/L (39-117); Bilirubin,Total 0.5 mg/dL (0.0-1.0); Calcium 8.7 mg/dl (8.6-10.4); Carbon Dioxide 22 mmol/L (22-30); Chloride 106 mmol/L (96-108); Globulin 2.7 gm/dL (2.2-3.7); Glomerular Filtration Rate 44; Glucose 106 mg/dL (70-105)
[2020-07-04 07:17] LABS: Blood Urea Nitrogen 20 mg/dl (8-23)
[2020-07-04] MEDS ORDERED: 0.9 % SODIUM CHLORIDE 1,000 ML BAG IV SCH (07:30)
[2020-07-04] MEDS ORDERED: 0.9 % SODIUM CHLORIDE 1,000 ML IV SCH (07:45)
[2020-07-04] MEDS ORDERED: HEPARIN 5,000 UNIT/ML VIAL SQ SCH (09:00)
[2020-07-04] MEDS: HEPARIN 5,000 UNIT/ML VIAL SQ SCH ×2 (12:05→21:58)
--- NOTE | 2020-07-04 22:59 | Internal Med Progress Note ---
SUBJECTIVE Subjective Patient information: Note initiated : 07/04/20 at 10:56 pm Service Date, if different from initiated Date: [] Patient: Yelitza Knight a 89 y/o F admitted on 07/03/20 for sent from [facility] for abnormal labs.. Chief Complaint: [] Ms. Knight is a 89 year old F with a history of severe dementia who was brought to the ER due to UTI. Patient has a severe dementia and all medical history is obtained from son and chart. Last week patient was found to decreased appetite and more confusion. Today patient vomited once and more lethargic. She initially was a brother to the [facility]. Over there she was found to have leukocytosis, 14 and UTI. So she was sent to our ER from [facility]. In the ER, chest x-ray showed bilateral pneumonia. 1 L normal saline and 1 dose of ceftriaxone were given in the ER. When I saw this patient in the ER, her son stated with her in her room. Both the son and daughter are POA. Patient lives with daughter. Son told me that they do not want to send her to any facilities and that they would like her to be discharged home. 07/04 Patient has a severe dementia and is nonverbal. When I saw this patient this morning, she does not seem to be comfortable. Smile on the face. Vital signs are stable Continue antibiotics Review of Systems ROS unobtainable: due to mental status Constitutional Vitals: Vital Signs Temp Pulse Resp BP Pulse Ox 98.7 F 60 16 125/60 96 07/04/20 19:22 07/04/20 19:22 07/04/20 19:22 07/04/20 19:22 07/04/20 19:22 Period Temp Pulse Resp BP Sys/Martel Pulse Ox Last 24 Hr 97.4 F-99.1 F 60-97 16-18 125-157/41-83 91-98 Intake and Output 07/04/20 07/04/20 07/05/20 13:59 21:59 05:59 Intake Total 1000 150 Balance 1000 150 Weight 55.157 kg Patient Weight 07/05/20 05:59 Weight 55.157 kg Intake & Output: Intake & Output 07/04/20 07/04/20 07/05/20 13:59 21:59 05:59 Intake Total 1000 150 Balance 1000 150 Weight 55.157 kg Intake: IV 1000 50 Lactated Ringers 1,000 ml @ 75 1000 mls/hr IV .[id number] [facility] Rx#: [id number] Zosyn 3.375 gm In Dextrose 5% 50 in Water 50 ml @ 100 mls/hr IV Q8H [facility] Rx#:[id number] Oral 100 OBJ DATA Labs CBC & Chem 7: 07/04/20 05:23 07/04/20 05:23 Labs: Abnormal Lab Results 07/04/20 07/04/20 05:23 05:23 [place] # (Auto) 1.17 H Glucose 106 H NT-Pro-B Natriuret Pep 4264.0 H Total Protein 5.8 L Albumin 3.1 L Meds: Medications Albuterol/Ipratropium (Duoneb) 3 ml NEB Q6HRT PRN PRN Reason: Shortness Of Breath Heparin Sodium (Porcine) (Heparin) 5,000 unit SQ Q12 [facility] Last Admin: 07/04/20 21:58 Dose: 5,000 unit Documented by: Lactated Ringer's (Lactated Ringers) 1,000 mls @ 75 mls/hr IV .[id number] [facility] Last Admin: 07/04/20 13:50 Dose: 75 mls/hr Documented by: Piperacillin Sod/Tazobactam (Sod 3.375 gm/ Dextrose) 50 mls @ 100 mls/hr IV Q8H [facility]; Protocol Last Admin: 07/04/20 21:57 Dose: 100 mls/hr Documented by: Ondansetron HCl (Zofran) 4 mg IV Q8 [facility] Last Admin: 07/04/20 21:58 Dose: Not Given Documented by: Quetiapine Fumarate (Seroquel) 25 mg PO HSP PRN PRN Reason: Agitation Sodium Chloride (Saline Flush) 10 ml IV Q8 [facility] Last Admin: 07/04/20 21:58 Dose: Not Given Documented by: General - No acute distress. Nonverbal due to severe dementia. Eyes -no conjunctiva injection. ENT no rhinorrhea, oral mucosa dry Neck no JVD, no thyromegaly Respiratory: Lungs - diminshed BS, no use of accessary muscles. Cardiovascular - RRR no m/r/g, GI - Normal bowel sounds, no distended, soft. Extremeties - No edema, cyanosis or clubbing. focal erythema over right lower leg. Hemo/lymphatic/immune no lymphadenopathy Neurological awake, nonverbal. Psychiatry unable to complete due to dementia A/P Narrative A/P Narrative: 1. AMS Etiology unknown. Most likely due to infection and dehydration. I would not like her to order CT of head Closely monitor 2. Pneumonia, bilateral lower lobes, aspiration Chest x-ray showed Moderate bilateral lower lobe infiltrates and small effusions. Consider aspiration Blood culture -no growth Sputum culture -no growth Respiratory panel - negative N.p.o. until passing swallow screen by nurse ST consult - "mild oropharyngeal dysphagia c/b delayed swallow reflex and reduced mastication/bolus formation. Recommend mildly thick liquids and Level 6 soft and bite size diet. Patient to be upright for all PO intake" Patient benefits from supervision/assistance with PO intake. Zosyn 3. Acute UTI Urine culture showed gram-negative bacilli Zosyn 4. Severe dementia Continue home medication 5. Cellulitis of right lower leg Continue Zosyn 6. Dehydration IV fluid 7. DVT prophylaxis: Heparin 8. CODE STATUS: Limited code -as per son, CPR is fine but no shock or intubation. Time Spent With Patient Time: Total time spent is greater than 50% in coordination of care (as documented) at patient's floor/unit and/or counseling patient: QUALITY VTE Deep Vein Thrombosis/Pulmonary Embolism Present on Admission: No
[2020-07-05] MEDS: LACTATED RINGERS 1,000 ML IV SCH (03:16)
[2020-07-05] MEDS: 0.9 % SODIUM CHLORIDE 10 ML SYRINGE IV SCH ×3 (04:51→22:15)
[2020-07-05] MEDS: ONDANSETRON 4 MG/2 ML VIAL IV SCH ×3 (04:52→22:16)
[2020-07-05] MEDS: PIPERACILLIN SODIUM/TAZOBACTAM 3.375 GM in DEXTROSE 5% IN WATER 50 ML IV SCH ×3 (05:33→22:14)
[2020-07-05 07:40] LABS: Basophils # (Auto) 0.07 K/mcL (0.00-0.30); Basophils % (Auto) 0.6 % (0.0-2.0); Eosinophils # (Auto) 0.71 K/mcL (0.00-0.70); Eosinophils % (Auto) 6.3 % (0.0-7.0); Granulocytes % (Auto) 65.2 % (38.0-78.0); Hematocrit 38.5 % (34.1-44.9); Hemoglobin 12.3 g/dL (11.2-15.7); Lymphocytes # (Auto) 1.88 K/mcL (1.50-4.80); Lymphocytes % (Auto) 16.7 % (15.5-49.0); Mean Cell Volume 90.4 fL (80.0-100.0); Mean Corpuscular HGB Conc 31.9 g/dL (31.0-36.0); Mean Platelet Volume 9.6 fL (7.4-10.4); Monocytes # (Auto) 1.26 K/mcL (0.10-0.90); Monocytes % (Auto) 11.2 % (1.0-12.0); Platelet Count 339 K/mcL (140-440); RBC 4.26 M/mcL (3.59-5.38); WBC 11.2 K/mcL (4.50-11.00)
[2020-07-05 07:51] LABS: ALT/SGPT 23 U/l (0-40); AST/SGOT 25 U/l (0-37); Albumin 2.8 gm/dL (3.2-5.2); Alkaline Phosphatase 65 U/L (39-117); Bilirubin,Total 0.5 mg/dL (0.0-1.0); Blood Urea Nitrogen 15 mg/dl (8-23); Carbon Dioxide 23 mmol/L (22-30); Chloride 107 mmol/L (96-108); Globulin 2.8 gm/dL (2.2-3.7); Glomerular Filtration Rate 50; Glucose 107 mg/dL (70-105)
[2020-07-05] MEDS: HEPARIN 5,000 UNIT/ML VIAL SQ SCH ×2 (08:58→22:14)
--- NOTE | 2020-07-05 13:13 | Internal Med Progress Note ---
SUBJECTIVE Subjective Patient information: Note initiated : 07/05/20 at 1:09 pm Service Date, if different from initiated Date: [] Patient: Yelitza Knight a 89 y/o F admitted on 07/03/20 for sent from [facility] for abnormal labs.. Chief Complaint: [] Ms. Knight is a 89 year old F with a history of severe dementia who was brought to the ER due to UTI. Patient has a severe dementia and all medical history is obtained from son and chart. Last week patient was found to decreased appetite and more confusion. Today patient vomited once and more lethargic. She initially was a brother to the [facility]. Over there she was found to have leukocytosis, 14 and UTI. So she was sent to our ER from [facility]. In the ER, chest x-ray showed bilateral pneumonia. 1 L normal saline and 1 dose of ceftriaxone were given in the ER. When I saw this patient in the ER, her son stated with her in her room. Both the son and daughter are POA. Patient lives with daughter. Son told me that they do not want to send her to any facilities and that they would like her to be discharged home. 07/04 Patient has a severe dementia and is nonverbal. When I saw this patient this morning, she does not seem to be comfortable. Smile on the face. Vital signs are stable Continue antibiotics 07/05 Patient is nonverbal. She looks comfortable. Vital signs are stable. Left leg cellulitis improving. Continue current antibiotics Discussed with son who would like to bring her mom to home when medically ready. She has mild oropharyngeal dysphagia by ST. Recommend patient continue on mildly thick liquid and level 6 soft and bite size at this time. Patient to be upright for all meals with 1:1 assistance. Review of Systems ROS unobtainable: due to mental status Constitutional Vitals: Vital Signs Temp Pulse Resp BP Pulse Ox 99 F 60 20 156/62 96 07/05/20 11:30 07/05/20 03:23 07/05/20 11:30 07/05/20 11:30 07/05/20 11:30 Period Temp Pulse Resp BP Sys/Martel Pulse Ox Last 24 Hr 97.7 F-99 F 60-62 16-20 109-156/41-73 93-97 Intake and Output 07/04/20 07/05/20 07/05/20 21:59 05:59 13:59 Intake Total 150 1190 270 Output Total 1 2 Balance 150 1189 268 Weight 55.157 kg Intake & Output: Intake & Output 07/04/20 07/05/20 07/05/20 21:59 05:59 13:59 Intake Total 150 1190 270 Output Total 1 2 Balance 150 1189 268 Weight 55.157 kg Intake: IV 50 1050 50 Lactated Ringers 1,000 ml @ 75 1000 mls/hr IV .[id number] [facility] Rx#: [id number] Zosyn 3.375 gm In Dextrose 5% 50 50 50 in Water 50 ml @ 100 mls/hr IV Q8H [facility] Rx#:[id number] Oral 100 140 220 Output: # of times incontinent of urine 1 2 Other: Meal Lunch Percent of Meal Consumed 50% Feeding Ability Total Assistance # Voids 400 Additional findings Additional findings: General - No acute distress. Nonverbal due to severe dementia. Eyes -no conjunctiva injection. ENT no rhinorrhea, oral mucosa dry Neck no JVD, no thyromegaly Respiratory: Lungs - diminshed BS, no use of accessary muscles. Cardiovascular - RRR no m/r/g, GI - Normal bowel sounds, no distended, soft. Extremeties - No edema, cyanosis or clubbing. focal erythema over right lower leg. Hemo/lymphatic/immune no lymphadenopathy Neurological awake, nonverbal. Psychiatry unable to complete due to dementia OBJ DATA Labs CBC & Chem 7: 07/05/20 05:16 07/05/20 05:16 Labs: Abnormal Lab Results 07/05/20 07/05/20 07/04/20 05:16 05:16 05:23 WBC 11.2 H [place] # (Auto) 1.26 H 1.17 H Eos # (Auto) 0.71 H Glucose 107 H NT-Pro-B Natriuret Pep Total Protein 5.6 L Albumin 2.8 L 07/04/20 05:23 WBC [place] # (Auto) Eos # (Auto) Glucose 106 H NT-Pro-B Natriuret Pep 4264.0 H Total Protein 5.8 L Albumin 3.1 L Meds: Medications Albuterol/Ipratropium (Duoneb) 3 ml NEB Q6HRT PRN PRN Reason: Shortness Of Breath Heparin Sodium (Porcine) (Heparin) 5,000 unit SQ Q12 [facility] Last Admin: 07/05/20 08:58 Dose: 5,000 unit Documented by: Lactated Ringer's (Lactated Ringers) 1,000 mls @ 75 mls/hr IV .[id number] [facility] Last Admin: 07/05/20 03:16 Dose: 75 mls/hr Documented by: Piperacillin Sod/Tazobactam (Sod 3.375 gm/ Dextrose) 50 mls @ 100 mls/hr IV Q8H [facility]; Protocol Last Infusion: 07/05/20 07:08 Dose: Infused Documented by: Ondansetron HCl (Zofran) 4 mg IV Q8 [facility] Last Admin: 07/05/20 04:52 Dose: Not Given Documented by: Quetiapine Fumarate (Seroquel) 25 mg PO HSP PRN PRN Reason: Agitation Sodium Chloride (Saline Flush) 10 ml IV Q8 [facility] Last Admin: 07/05/20 04:51 Dose: Not Given Documented by: A/P Narrative A/P Narrative: 1. AMS Etiology unknown. Most likely due to infection and dehydration. I would not like her to order CT of head Closely monitor 2. Pneumonia, bilateral lower lobes, aspiration Chest x-ray showed Moderate bilateral lower lobe infiltrates and small effusions. Consider aspiration Blood culture -no growth Sputum culture -no growth Respiratory panel - negative N.p.o. until passing swallow screen by nurse ST consult - "mild oropharyngeal dysphagia c/b delayed swallow reflex and reduced mastication/bolus formation. Recommend mildly thick liquids and Level 6 soft and bite size diet. Patient to be upright for all PO intake" Patient benefits from supervision/assistance with PO intake. Zosyn 3. Acute UTI Urine culture showed gram-negative bacilli Zosyn 4. Severe dementia Continue home medication 5. Cellulitis of right lower leg Continue Zosyn 6. Dehydration IV fluid 7. Oropharyngeal dysphagia ST recommend patient continue on mildly thick liquid and level 6 soft and bite size at this time. Patient to be upright for all meals with 1:1 assistance. 8. DVT prophylaxis: Heparin 9. CODE STATUS: Limited code -as per son, CPR is fine but no shock or intubation. Time Spent With Patient Time: Total time spent is greater than 50% in coordination of care (as documented) at patient's floor/unit and/or counseling patient: QUALITY VTE Deep Vein Thrombosis/Pulmonary Embolism Present on Admission: No
--- NOTE | 2020-07-05 14:39 | Internal Med Progress Note ---
SUBJECTIVE Subjective Patient information: Note initiated : 07/05/20 at 2:34 pm Service Date, if different from initiated Date: [] Patient: Yelitza Knight a 89 y/o F admitted on 07/03/20 for sent from [facility] for abnormal labs.. Chief Complaint: [] Interval history: Ms. Knight is a 89 year old F with a history of severe dementia who was brought to the ER due to UTI. Patient has a severe dementia and all medical history is obtained from son and chart. Last week patient was found to decreased appetite and more confusion. Today patient vomited once and more lethargic. She initially was a brother to the [facility]. Over there she was found to have leukocytosis, 14 and UTI. So she was sent to our ER from [facility]. In the ER, chest x-ray showed bilateral pneumonia. 1 L normal saline and 1 dose of ceftriaxone were given in the ER. When I saw this patient in the ER, her son stated with her in her room. Both the son and daughter are POA. Patient lives with daughter. Son told me that they do not want to send her to any facilities and that they would like her to be discharged home. 07/04 Patient has a severe dementia and is nonverbal. When I saw this patient this morning, she does not seem to be comfortable. Smile on the face. Vital signs are stable Continue antibiotics 07/05 Patient is nonverbal. She looks comfortable. Vital signs are stable. Left leg cellulitis improving. Continue current antibiotics Discussed with son who would like to bring her mom to home when medically ready. She has mild oropharyngeal dysphagia by ST. Recommend patient continue on mildly thick liquid and level 6 soft and bite size at this time. Patient to be upright for all meals with 1:1 assistance. 07/06 Constitutional Vitals: Vital Signs Temp Pulse Resp BP Pulse Ox 99 F 60 20 156/62 96 07/05/20 11:30 07/05/20 03:23 07/05/20 11:30 07/05/20 11:30 07/05/20 11:30 Period Temp Pulse Resp BP Sys/Martel Pulse Ox Last 24 Hr 97.7 F-99 F 60-62 16-20 109-156/41-73 93-97 Intake and Output 07/05/20 07/05/20 07/05/20 05:59 13:59 21:59 Intake Total 1190 270 Output Total 1 2 Balance 1189 268 Intake & Output: Intake & Output 07/05/20 07/05/20 07/05/20 05:59 13:59 21:59 Intake Total 1190 270 Output Total 1 2 Balance 1189 268 Intake: IV 1050 50 Lactated Ringers 1,000 ml @ 75 1000 mls/hr IV .[id number] [facility] Rx#: [id number] Zosyn 3.375 gm In Dextrose 5% 50 50 in Water 50 ml @ 100 mls/hr IV Q8H [facility] Rx#:[id number] Oral 140 220 Output: # of times incontinent of urine 1 2 Other: Meal Lunch Percent of Meal Consumed 50% Feeding Ability Total Assistance # Voids 400 Exam: General: Alert, Awake, No acute Distress Eyes/N/T: EOMI, Head/Neck: neck supple, CV: RRR, No murmurs, Pulm: Diminished b/l, no wheezing Abd: soft, nontender, +BS x4 Ext: no clubbing/cyanosis/edema Neuro: Alert, no focal deficits, moves all extremities, Skin: warm/dry OBJ DATA Labs CBC & Chem 7: 07/05/20 05:16 07/05/20 05:16 Labs: Abnormal Lab Results 07/05/20 07/05/20 07/04/20 05:16 05:16 05:23 WBC 11.2 H [place] # (Auto) 1.26 H 1.17 H Eos # (Auto) 0.71 H Glucose 107 H NT-Pro-B Natriuret Pep Total Protein 5.6 L Albumin 2.8 L 07/04/20 05:23 WBC [place] # (Auto) Eos # (Auto) Glucose 106 H NT-Pro-B Natriuret Pep 4264.0 H Total Protein 5.8 L Albumin 3.1 L Meds: Medications Albuterol/Ipratropium (Duoneb) 3 ml NEB Q6HRT PRN PRN Reason: Shortness Of Breath Heparin Sodium (Porcine) (Heparin) 5,000 unit SQ Q12 [facility] Last Admin: 07/05/20 08:58 Dose: 5,000 unit Documented by: Lactated Ringer's (Lactated Ringers) 1,000 mls @ 75 mls/hr IV .[id number] [facility] Last Admin: 07/05/20 03:16 Dose: 75 mls/hr Documented by: Piperacillin Sod/Tazobactam (Sod 3.375 gm/ Dextrose) 50 mls @ 100 mls/hr IV Q8H [facility]; Protocol Last Infusion: 07/05/20 07:08 Dose: Infused Documented by: Ondansetron HCl (Zofran) 4 mg IV Q8 [facility] Last Admin: 07/05/20 04:52 Dose: Not Given Documented by: Quetiapine Fumarate (Seroquel) 25 mg PO HSP PRN PRN Reason: Agitation Sodium Chloride (Saline Flush) 10 ml IV Q8 [facility] Last Admin: 07/05/20 04:51 Dose: Not Given Documented by: A/P Narrative A/P Narrative: A: *Encephalopathy (confusion superimposed on underlying dementia): 2/2 PNA/dehydration/UTI *Pneumonia, bilateral lower lobes, aspiration -Chest x-ray showed Moderate bilateral lower lobe infiltrates and small effusions. Consider aspiration -BC/SC no growth, Respiratory panel - negative *Oropharyngeal dysphagia: per ST c/b delayed swallow reflex and reduced mastication/bolus formation. *UTI(GNB) *Severe dementia: Continue home medication *Cellulitis of right lower leg *Dehydration P: -zosyn -IS/acapella -Diet per ST -pending -IVF -PT/OT -ppx: heparin CODE STATUS: Limited code -as per son, CPR is fine but no shock or intubation. Time Spent With Patient Time: Total time spent is greater than 50% in coordination of care (as documented) at patient's floor/unit and/or counseling patient: QUALITY VTE Deep Vein Thrombosis/Pulmonary Embolism Present on Admission: No
[2020-07-06] MEDS: 0.9 % SODIUM CHLORIDE 10 ML SYRINGE IV SCH ×2 (05:00→13:50)
[2020-07-06] MEDS: ONDANSETRON 4 MG/2 ML VIAL IV SCH ×2 (05:01→13:50)
[2020-07-06] MEDS: PIPERACILLIN SODIUM/TAZOBACTAM 3.375 GM in DEXTROSE 5% IN WATER 50 ML IV SCH ×2 (05:01→13:50)
[2020-07-06 07:18] LABS: Basophils # (Auto) 0.09 K/mcL (0.00-0.30); Basophils % (Auto) 0.9 % (0.0-2.0); Eosinophils # (Auto) 0.79 K/mcL (0.00-0.70); Granulocytes % (Auto) 60.3 % (38.0-78.0); Hematocrit 37.2 % (34.1-44.9); Lymphocytes # (Auto) 1.89 K/mcL (1.50-4.80); Lymphocytes % (Auto) 19.1 % (15.5-49.0); Mean Corpuscular HGB Conc 32.3 g/dL (31.0-36.0); Mean Platelet Volume 9.9 fL (7.4-10.4); Monocytes # (Auto) 1.16 K/mcL (0.10-0.90); Monocytes % (Auto) 11.7 % (1.0-12.0); Platelet Count 347 K/mcL (140-440); RBC 4.18 M/mcL (3.59-5.38); WBC 9.9 K/mcL (4.50-11.00)
--- NOTE | 2020-07-06 07:18 | Internal Med Progress Note ---
SUBJECTIVE Subjective Patient information: Note initiated : 07/06/20 at 7:14 am Service Date, if different from initiated Date: [] Patient: Yelitza Knight a 89 y/o F admitted on 07/03/20 for sent from [facility] for abnormal labs.. Chief Complaint: [] Interval history: Ms. Knight is a 89 year old F with a history of severe dementia who was brought to the ER due to UTI. Patient has a severe dementia and all medical history is obtained from son and chart. Last week patient was found to decreased appetite and more confusion. Today patient vomited once and more lethargic. She initially was a brother to the [facility]. Over there she was found to have leukocytosis, 14 and UTI. So she was sent to our ER from [facility]. In the ER, chest x-ray showed bilateral pneumonia. 1 L normal saline and 1 dose of ceftriaxone were given in the ER. When I saw this patient in the ER, her son stated with her in her room. Both the son and daughter are POA. Patient lives with daughter. Son told me that they do not want to send her to any facilities and that they would like her to be discharged home. 07/04 Patient has a severe dementia and is nonverbal. When I saw this patient this morning, she does not seem to be comfortable. Smile on the face. Vital signs are stable Continue antibiotics 07/05 Patient is nonverbal. She looks comfortable. Vital signs are stable. Left leg cellulitis improving. Continue current antibiotics Discussed with son who would like to bring her mom to home when medically ready. She has mild oropharyngeal dysphagia by ST. Recommend patient continue on mildly thick liquid and level 6 soft and bite size at this time. Patient to be upright for all meals with 1:1 assistance. 07/06 No overnight events or new complaints. Unable to gather review of systems given patient's dementia. Labs unremarkable today. Vital signs stable. Pending final urine culture. Constitutional Vitals: Vital Signs Temp Pulse Resp BP Pulse Ox 98.5 F 57 L 22 126/70 92 07/06/20 04:43 07/06/20 04:43 07/06/20 04:43 07/06/20 04:43 07/06/20 04:43 Period Temp Pulse Resp BP Sys/Martel Pulse Ox Last 24 Hr 97.0 F-99.2 F 57-82 16-24 126-160/46-73 92-96 Intake and Output 07/05/20 07/06/20 07/06/20 21:59 05:59 13:59 Intake Total 1050 50 Output Total 3 1 Balance 1047 50 -1 Weight 55.384 kg Intake & Output: Intake & Output 07/05/20 07/06/20 07/06/20 21:59 05:59 13:59 Intake Total 1050 50 Output Total 3 1 Balance 1047 50 -1 Weight 55.384 kg Intake: IV 1050 50 Lactated Ringers 1,000 ml @ 75 1000 mls/hr IV .[id number] [facility] Rx#: [id number] Zosyn 3.375 gm In Dextrose 5% 50 50 in Water 50 ml @ 100 mls/hr IV Q8H [facility] Rx#:[id number] Oral 0 Output: # of times incontinent of urine 3 1 Other: Meal Lunch Percent of Meal Consumed 50% Feeding Ability Total Assistance Stool Size Smear # Voids 1 1 Exam: General: Alert, Awake, No acute Distress Eyes/N/T: EOMI, Head/Neck: neck supple, CV: RRR, No murmurs, Pulm: Diminished b/l, no wheezing Abd: soft, nontender, +BS x4 Ext: no clubbing/cyanosis/edema Neuro: Alert, no focal deficits, moves all extremities, Skin: warm/dry OBJ DATA Labs CBC & Chem 7: 07/06/20 05:10 07/05/20 05:16 Labs: Abnormal Lab Results 07/05/20 07/05/20 07/04/20 05:16 05:16 05:23 WBC 11.2 H [place] # (Auto) 1.26 H 1.17 H Eos # (Auto) 0.71 H Glucose 107 H NT-Pro-B Natriuret Pep Total Protein 5.6 L Albumin 2.8 L 07/04/20 05:23 WBC [place] # (Auto) Eos # (Auto) Glucose 106 H NT-Pro-B Natriuret Pep 4264.0 H Total Protein 5.8 L Albumin 3.1 L Meds: Medications Albuterol/Ipratropium (Duoneb) 3 ml NEB Q6HRT PRN PRN Reason: Shortness Of Breath Heparin Sodium (Porcine) (Heparin) 5,000 unit SQ Q12 [facility] Last Admin: 07/05/20 22:14 Dose: 5,000 unit Documented by: Piperacillin Sod/Tazobactam (Sod 3.375 gm/ Dextrose) 50 mls @ 100 mls/hr IV Q8H [facility]; Protocol Last Admin: 07/06/20 05:01 Dose: 100 mls/hr Documented by: Ondansetron HCl (Zofran) 4 mg IV Q8 [facility] Last Admin: 07/06/20 05:01 Dose: Not Given Documented by: Quetiapine Fumarate (Seroquel) 25 mg PO HSP PRN PRN Reason: Agitation Sodium Chloride (Saline Flush) 10 ml IV Q8 [facility] Last Admin: 07/06/20 05:00 Dose: 10 ml Documented by: A/P Narrative A/P Narrative: A: *Encephalopathy (confusion superimposed on underlying dementia): 2/2 PNA/dehydration/UTI *Pneumonia, bilateral lower lobes, aspiration: -Chest x-ray showed Moderate bilateral lower lobe infiltrates and small effusions. Consider aspiration -BC/SC no growth, Respiratory panel - negative -on room air *Oropharyngeal dysphagia: per ST c/b delayed swallow reflex and reduced mastication/bolus formation. *UTI(e.coli): *Cellulitis of right lower leg *Dehydration *Severe dementia: Continue home medication P: -zosyn to Augmentin -IS/acapella -Diet per ST -pending final -IVF -PT/OT -CM for placement needs -ppx: heparin CODE STATUS: Limited code -as per son, CPR is fine but no shock or intubation. Time Spent With Patient Time: Total time spent is greater than 50% in coordination of care (as documented) at patient's floor/unit and/or counseling patient: QUALITY VTE Deep Vein Thrombosis/Pulmonary Embolism Present on Admission: No
[2020-07-06] MEDS ORDERED: LACTOBACILLUS 1 CAPSULE PO SCH (09:00)
[2020-07-06] MEDS: HEPARIN 5,000 UNIT/ML VIAL SQ SCH (09:56)
--- NOTE | 2020-07-06 11:17 | Discharge Summary ---
Discharge Provider Provider Patient information: Note initiated : 07/06/20 at 11:15 am Service Date, if different from initiated Date: [] Patient: Yelitza Knight 89 y/o F admitted on 07/03/20 for sent from [facility] for abnormal labs.. Chief Complaint: [] Date of admission: 07/03/20 23:21 Discharge date: 07/06/20 Primary care physician: Devon White Consults: 07/03/20 Consult to Physician [CONS] Stat Comment: Consulting Provider: Clifton Mckinney Reason For Exam: Physician to Consult Discharge Meds Discharge Medications Home Medications acetaminophen [Children's Acetaminophen] 640 mg PO QID PRN 07/03/20 [History Confirmed 07/04/20 Last Taken Unknown] Lactobacillus rhamnosus GG [Culturelle] 1 cap PO BID #40 cap 07/06/20 [Rx Last Taken Unknown] cefdinir 300 mg PO BID #4 cap 07/06/20 [Rx Last Taken Unknown] COURSE Hospital Course Hospital course: Interval history: Ms. Knight is a 89 year old F with a history of severe dementia who was brought to the ER due to UTI. Patient has a severe dementia and all medical history is obtained from son and chart. Last week patient was found to decreased appetite and more confusion. Today patient vomited once and more lethargic. She initially was a brother to the [facility]. Over there she was found to have leukocytosis, 14 and UTI. So she was sent to our ER from [facility], [place]. In the ER, chest x-ray showed bilateral pneumonia. 1 L normal saline and 1 dose of ceftriaxone were given in the ER. When I saw this patient in the ER, her son stated with her in her room. Both the son and daughter are POA. Patient lives with daughter. Son told me that they do not want to send her to any facilities and that they would like her to be discharged home. 07/04 Patient has a severe dementia and is nonverbal. When I saw this patient this morning, she does not seem to be comfortable. Smile on the face. Vital signs are stable Continue antibiotics 07/05 Patient is nonverbal. She looks comfortable. Vital signs are stable. Left leg cellulitis improving. Continue current antibiotics Discussed with son who would like to bring her mom to home when medically ready. She has mild oropharyngeal dysphagia by ST. Recommend patient continue on mildly thick liquid and level 6 soft and bite size at this time. Patient to be upright for all meals with 1:1 assistance. 07/06 No overnight events or new complaints. A: *Encephalopathy (confusion superimposed on underlying dementia): 2/2 PNA/dehydration/UTI *Pneumonia, bilateral lower lobes, aspiration: -Chest x-ray showed Moderate bilateral lower lobe infiltrates and small effusions. Consider aspiration -BC/SC no growth, Respiratory panel - negative -on room air *Oropharyngeal dysphagia: per ST c/b delayed swallow reflex and reduced mastication/bolus formation. *UTI(e.coli): *Cellulitis of right lower leg *Dehydration *Severe dementia: Continue home medication Discharge diagnosis: Aspiration pneumonia encephalopathy dysphagia, UTIs cellulitis dehydration Secondary discharge diagnosis: Severe dementia Time Spent with Patient Time attestation: Total time spent providing and/or coordinating discharge services: Time spent: Greater than 30 minutes EXAM Constitutional Vitals: Temp Pulse Resp BP Pulse Ox 98.5 F 99 H 22 110/85 98 07/06/20 04:43 07/06/20 08:00 07/06/20 08:00 07/06/20 08:00 07/06/20 08:00 Discharge Data Data Completed and Pending Labs on day of discharge: Labs from last 24 hours 07/06/20 05:10 WBC 9.9 RBC 4.18 Hgb 12.0 Hct 37.2 MCV 89.0 MCH 28.7 MCHC 32.3 RDW 13.0 Plt Count 347 MPV 9.9 Gran % 60.3 Lymph % (Auto) 19.1 [place] % (Auto) 11.7 Eos % (Auto) 8.0 H Baso % (Auto) 0.9 Gran # 5.95 Lymph # (Auto) 1.89 [place] # (Auto) 1.16 H Eos # (Auto) 0.79 H Baso # (Auto) 0.09 Preliminary micro results at discharge 07/03/20 18:19 Blood Culture - Preliminary Blood 07/03/20 18:21 Blood Culture - Preliminary Blood Discharge Plan Patient/Caregiver Discharge Instructions Activity: increase activity as tolerated Diet: Regular Diet Prescriptions: New Culturelle 15 billion cell Capsule, Sprinkle 1 cap PO BID Qty: 40 RF: 0 cefdinir 300 mg capsule 300 mg PO BID Qty: 4 RF: 0 Continued acetaminophen [Children's Acetaminophen] 160 mg/5 mL Liquid 640 mg PO QID PRN (Reason: Pain) RF: 0 Follow Up Plan Follow up with: Devon White MD [Primary Care Provider] - Patient Disposition: Home Health Service Prognosis: Fair Overall status at discharge: patient is progressing back to baseline Discharge Orders: Discharge Order (Routine); Ordered 07/06/20 Ordered By: Grant Diaz [facility] VTE Deep Vein Thrombosis/Pulmonary Embolism Present on Admission: No
== END 2020-07-06 16:00 | disposition home health service (06) | DRG 177 ==
LOC: ED 17:48 → MEDSUR 23:21
PROVIDERS: ADMIT Internal Medicine; ATTEND Internal Medicine

== ENCOUNTER 2020-10-23 11:19 | Inpatient (IN) ==
--- NOTE | 2020-10-23 11:48 | Emergency Department Note ---
Skin/Abscess/FB HPI General Chief complaint: Skin/Abscess/Rash Stated complaint: foot wounds Time Seen by Provider: 10/23/20 11:23 Source: family Mode of arrival: ambulatory Limitations: no limitations History of Present Illness HPI Narrative: This is an 89-year-old bedbound, nonverbal female with dementia who is brought in by her son Adam with complaints of right heel wound. On initial examination the wound is necrotic and infected. Patient's son states that its been there since July. He states that their home health wound nurse recommended they come in today. He states that her caregiving at home has b ecome too overwhelming for him and his sister to manage. His sister is her primary caregiver. He is asking for admission and placement. On further examination the patient has bilateral severely necrosed stage IV decubitus ulcers to the right heel, and left lateral fifth metatarsal and lateral malleolus. The son denies that she has had fevers or chills. She does carry history of atherosclerosis, peripheral vascular disease, and aortic stenosis. She is not a diabetic. Related Data Home Medications Medication Instructions Recorded Confirmed acetaminophen [Children's 640 mg PO QID PRN 07/03/20 10/23/20 Acetaminophen] calcium carbonate [Calcium 500] 1,250 mg PO DAILY 10/23/20 10/23/20 multivit with min-folic acid 0.4 mg PO DAILY 10/23/20 10/23/20 [Adult One Daily Multivitamin] Allergies Allergy/AdvReac Type Severity Reaction Status Date / Time Thiazides Allergy Mild ELEVATED Verified 10/23/20 11:24 WBC'S Erythromycin Base Allergy Unknown UNKNOWN Verified 10/23/20 11:24 Sulfa (Sulfonamide Allergy Unknown UNKNOWN Verified 10/23/20 11:24 Antibiotics) Review of Systems ROS ROS Narrative: Narrative: All systems ED: reviewed and negative except as stated. PFSH Narrative Patient History Narrative: Narrative: Medical/Surgical/Family History All Active Problems (Updated 10/23/20 @ 15:10 by Ann Ramírez PA-C) Osteomyelitis of foot (Acute) Decubitus ulcer, stage 4 with infection (Acute) Dementia (Acute) Debilitated patient (Acute) Pneumonia (Acute) Dementia (Acute) Acute UTI (Acute) Nausea & vomiting (Acute) Cough (Acute) Fatigue (Acute) Altered mental status (Acute) Generalized weakness (Acute) Cellulitis of right lower leg (Acute) Sinus pause (Acute) Acute alteration in mental status (Acute) Toe pain (Acute) Acute kidney injury (Acute) SIRS (systemic inflammatory response syndrome) (Acute) Fall (Acute) UTI (urinary tract infection) (Acute) Cellulitis (Acute) Hematuria (Acute) Anal fissure (Acute) Rectal prolapse (Acute) Hematochezia (Acute) Renal artery stenosis, [place], bilateral (Acute) Dilated bile duct (Acute) Diverticulosis (Acute) Varices of other sites (Acute) Diverticulitis (Chronic) Osteoporosis (Chronic) Dementia (Chronic) Stroke (Chronic) Primary progressive aphasia (Chronic) Osteoarthrosis (Chronic) History of intravascular stent placement (Chronic) Stress incontinence, female (Chronic) Peripheral vascular disease (Chronic) Lacunar infarction (Chronic) Hypertension, essential (Chronic) Hyperlipemia (Chronic) Heart murmur (Chronic) Esophageal reflux (Chronic) Atherosclerosis (Chronic) Aortic stenosis (Chronic) Medical History Accidental overdose (Resolved) Aortic stenosis (Chronic) 12/30/2014 - Dr. Humphreys Atherosclerosis (Chronic) of extremities Back Pain (Resolved) Cough (Acute) Deep venous thrombosis (Resolved) Degenerative joint disease (Resolved) Knees Dementia (Chronic) Dermatitis (Resolved) Stasis Dermatitis Discitis of lumbar region (Resolved) Diverticulitis (Chronic) Diverticulitis (Resolved) Esophageal reflux (Chronic) Fatigue (Acute) Heart murmur (Chronic) Suspect mitral origin 12/30/2014 - Dr. Humphreys Hyperlipemia (Chronic) Hypertension, essential (Chronic) Lacunar infarction (Chronic) Muscle spasm of right shoulder (Resolved) Nontraumatic rupture of Achilles tendon (Resolved) Peripheral vascular disease (Chronic) Primary progressive aphasia (Chronic) Stress incontinence, female (Chronic) Stroke (Chronic) Subdural hematoma (Resolved) Thrombosis/embolism, venous (Resolved) Urgency of urination (Resolved) Vaginal vault prolapse after hysterectomy (Resolved 03/16/15) Intermittent Surgical History History of discectomy (Resolved) Lumbar History of hernia surgery (Resolved 05/06/14) Ventral History of hysterectomy (Resolved) 1971 History of hysterectomy (Acute) History of intravascular stent placement (Chronic) Peripheral Vascular Disease -Dr Romo History of knee replacement (Resolved) Left History of knee replacement (Resolved) Right History of knee replacement (Acute) History of oophorectomy (Resolved) 1971 With Hysterectomy Status post tendon repair (Resolved) Family History Unknown Cardiac disease Essential hypertension Malignant neoplasm Social History Smoking Status: Never smoker Alcohol Intake Frequency: does not drink Substance Use: does not use Exam Narrative Narrative: General: Alert, nonverbal. NAD, nontoxic appearing. HEENT: PERRLA, EOMI, normocephalic. Moist mucous membranes. Normal facies. Chest: Symmetric Respiratory: Lungs clear to auscultation bilaterally. No respiratory distress. Unlabored breathing. Heart: Regular rate and rhythm, no murmurs/clicks/rubs. Abdomen: Non-tender, Non distended. No organomegaly. Extremities: Warm and well perfused. No edema. No venous stasis. Neuro: No focal deficits. Cranial nerves II-XII normal. Skin: Warm dry. Multiple decubitus ulcerations in various stages as noted below: 1. Right calcaneal stage IV gangrenous decubitus ulcer measuring 6 x 6.5 cm. There is mild associated erythema. Purulent drainage is noted with foul odor. 2. Left malleolus 3.5 x 3 cm necrotic decubitus ulcer, stage III 3. Left lateral foot 6 x 3.5 stage IV decubitus ulcer with associated erythema to the dorsal surface of the foot. No drainage is noted 4. Right sacrum 2.5 cm x 2 stage III decubitus ulcer. Psych: Nonverbal Heme/Lymph: No bruising General Limitations: no limitations Course Course Course Narrative: 89-year-old nonverbal bedbound patient with dementia is evaluated for bilateral infected decubitus ulcer foot wounds. Reevaluation(s) Reevaluation #1: Obtain basic labs, CRP, sed rate Bilateral CT of the feet to evaluate for osteomyelitis We will hold off on antibiotics for now, wound cultures have been collected Reevaluation #2: Patient has a leukocytosis with a white blood cell count of 15,200 and a CRP of greater than 8. CT scan of the right foot shows possible osteomyelitis. She is not currently septic at this time; however, she is pro foundly debilitated and will need surgical debridement and IV antibiotics. Awaiting call from the hospitalist for admission. Reevaluation #3: This patient was signed out to Dr. Jean, hospitalist service. He is requested blood cultures and initiation of IV Rocephin and vancomycin. I have contacted the pot room tapper as well as the wound clinic for consultation while she is inpatient. Vital Signs Vital signs: Vital Signs Temperature 97.3 F 10/23/20 11:19 Pulse Rate 59 L 10/23/20 11:19 Respiratory Rate 16 10/23/20 11:19 Blood Pressure 160/88 10/23/20 11:19 Pulse Oximetry (%) 98 10/23/20 11:19 Temperature 97.3 F 10/23/20 11:19 Pulse Rate 62 10/23/20 17:00 Respiratory Rate 16 10/23/20 17:00 Blood Pressure 176/78 10/23/20 17:00 Pulse Oximetry (%) 98 10/23/20 17:00 MDM MDM Narrative Medical decision making narrative: 1. Bilateral infected decubitus ulcer foot wounds 2. Right foot osteomyelitis Given the patient's leukocytosis and findings of osteomyelitis on CT of the rig ht foot, she is being admitted for IV antibiotics and probable surgical debridement. Patient is profoundly debilitated and the family is indicated that they are no longer to care for her at home. She will need placement upon discharge. Per chart review the patient is okay with chest compressions, no shocks or intubation. Lab Data Result diagrams: 10/23/20 12:10 10/23/20 12:10 Labs: Lab Results 10/23/20 10/23/20 Range/Units 12:10 12:10 WBC 15.2 H (4.5-11.0) K/mcL RBC 4.81 (4.00-5.20) M/mcL Hgb 12.5 (12.0-15.0) g/dL Hct 39.9 (36.0-48.0) % MCV 83.0 (80.0-100.0) fL MCH 26.0 (26.0-34.0) pg MCHC 31.3 (31.0-36.0) g/dL RDW 14.4 (11.5-14.5) % Plt Count 376 (140-440) K/mcL MPV 10.5 H (7.4-10.4) fL Seg Neutrophils % 84 H (38-78) % Lymphocytes % 7 L (15-49) % Monocytes % (Manual) 8 (1-12) % Eosinophils % (Manual) 1 (0-7) % Platelet Estimate Normal (Normal) RBC Morphology Normal (Normal) ESR 18 (0-20) mm/hr Sodium 133 (133-145) mmol/L Potassium 4.2 (3.3-5.1) mmol/L Chloride 97 (96-108) mmol/L Carbon Dioxide 21 L (22-30) mmol/L Anion Gap 15.0 (8.0-16.0) BUN 19 (8-23) mg/dL Creatinine 0.8 (0.6-1.1) mg/dL POC Creatinine 0.9 (0.6-1.2) mg/dL GFR Calculation 65 Glucose 145 H (70-105) mg/dL Calcium 9.3 (8.6-10.4) mg/dL Total Bilirubin 0.6 (0.1-1.0) mg/dL AST 56 H (<32) U/L ALT 47 H (<40) U/L Alkaline Phosphatase 85 (39-117) U/L C-Reactive Protein 8.90 H (0.03-0.80) mg/dL Total Protein 6.5 (5.9-8.4) gm/dL Albumin 3.0 L (3.2-5.2) gm/dL Globulin 3.5 (2.2-3.7) gm/dL Albumin/Globulin Ratio 0.9 L (1.0-2.3) Discharge Plan Patient/Caregiver Discharge Instructions Pt seen by [employer] LOADER/PA only: Yes Clinical Impression: Osteomyelitis of foot, Decubitus ulcer, stage 4 with infection, Dementia, D ebilitated patient Patient Disposition: [facility]fer As Inpt ([facility]) Discharge Date/Time: 10/23/20 17:05 Interventions Interventions: Condition At Discharge/Admit (ED) Last Done: 10/23/20 17:05
[2020-10-23 12:17] LABS: POC Creatinine 0.9 mg/dL (0.6-1.2)
[2020-10-23 12:48] LABS: Hematocrit 39.9 % (36.0-48.0); Hemoglobin 12.5 g/dL (12.0-15.0); Mean Corpuscular HGB Conc 31.3 g/dL (31.0-36.0); Mean Platelet Volume 10.5 fL (7.4-10.4); Platelet Count 376 K/mcL (140-440); RBC 4.81 M/mcL (4.00-5.20); Red Cell Distribution Width 14.4 % (11.5-14.5); WBC 15.2 K/mcL (4.5-11.0)
--- NOTE | 2020-10-23 13:05 | Cat Scan Report ---
CLINICAL INFORMATION: Evaluate for osteomyelitis cutaneous foot wounds COMPARISON: Plain films 08/21/2018 TECHNIQUE: 0.625 helical slices were obtained in left foot and ankle. Following reconstruction 2.5 m sagittal, coronal and axial reformatted images were processed and reviewed in bone and soft tissue windows.. FINDINGS: Moderate to severe diffuse osteoporosis appreciated. No acute fracture appreciated - small avulsion fracture off the dorsal lateral cortex of the lateral cuneiform appreciated with a separate fragment less than 1 cm mildly displaced into the dorsal fascia. No specific evidence for osteomyelitis. There is moderate degenerative change in the second through fifth MTT, navicular cuneiform and the second through fifth interphalangeal joints. Moderate pes planus noted. Mild hammertoe deformities second through fifth digits. Mild subcutaneous edema seen throughout the foot and ankle. Muscle and fascial planes and tendons are all grossly normal. IMPRESSION: 1. No evidence of osteomyelitis 2. Moderate to severe diffuse osteoporosis. 3. Multilevel degeneration. 4. Pes planus and hammertoe deformities second through fifth digits 5. Small old avulsion fracture of the dorsal cortex of the lateral cuneiform Interpreted and Authenticated by: Marcello Márquez 10/23/20
[2020-10-23 13:12] LABS: ALT/SGPT 47 U/L (<40); AST/SGOT 56 U/L (<32); Albumin/Globulin Ratio 0.9 (1.0-2.3); Alkaline Phosphatase 85 U/L (39-117); Bilirubin,Total 0.6 mg/dL (0.1-1.0); Blood Urea Nitrogen 19 mg/dL (8-23); Calcium 9.3 mg/dL (8.6-10.4); Carbon Dioxide 21 mmol/L (22-30); Chloride 97 mmol/L (96-108); Globulin 3.5 gm/dL (2.2-3.7); Glomerular Filtration Rate 65; Glucose 145 mg/dL (70-105)
--- NOTE | 2020-10-23 13:31 | Cat Scan Report ---
CLINICAL INFORMATION: r/o osteo COMPARISON: None. CLINICAL INFORMATION: Evaluate for osteomyelitis cutaneous foot wounds COMPARISON: Plain films 08/21/2018 TECHNIQUE: 0.625 helical slices were obtained in left foot and ankle. Following reconstruction 2.5 m sagittal, coronal and axial reformatted images were processed and reviewed in bone and soft tissue windows.. FINDINGS: Moderate to severe diffuse osteoporosis appreciated. No acute fracture appreciated . In the inferior mid calcaneus is a 2.1 x 1.1 lucent lesion which has focally disrupted the posterior cortex. It is adjacent to a small ulceration. This could represent a focus of osteomyelitis. There is moderate degenerative change in the second through fifth MTT, navicular cuneiform and the second through fifth interphalangeal joints. Moderate pes planus noted. Mild hammertoe deformities second through fifth digits. Mild subcutaneous edema seen throughout the foot and ankle. Muscle and fascial planes and tendons are all grossly normal. IMPRESSION: 1. 2 cm radiolucent lesion in the plantar mid calcaneus with associated focal cortical disruption. It is adjacent to an ulceration and may represent a focus of osteomyelitis. 2. Moderate to severe diffuse osteoporosis. 3. Multilevel degeneration. 4. Pes planus and hammertoe deformities second through fifth digits Interpreted and Authenticated by: Marcello Márquez 10/23/20
[2020-10-23 13:48] LABS: Eosinophils % (Manual) 1 % (0-7); Lymphocytes % 7 % (15-49); Monocytes % (Manual) 8 % (1-12); Platelet Estimate NORMAL (Normal); RBC Morphology NORMAL (Normal); Segmented Neutrophils % 84 % (38-78)
[2020-10-23 14:01] LABS: Erythrocyte Sedimentation Rate 18 mm/hr (0-20)
[2020-10-23] MEDS ORDERED: VANCOMYCIN PER PHARMACY IV ONE (15:00)
[2020-10-23] MEDS ORDERED: cefTRIAXone 2 GM in DEXTROSE 5% IN WATER 50 ML IV ONE (15:00)
--- NOTE | 2020-10-23 15:06 | Internal Med History&Physical ---
HPI History of Present Illness Patient information: Note initiated : 10/23/20 at 2:57 pm Service Date, if different from initiated Date: [] Patient: Yelitza Knight a 89 y/o F admitted on for foot wounds. Chief Complaint: Worsening decubitus and heel wounds History of present illness: Ms. Knight is a 89 year old F with a history of advanced dementia who was brought to the ER by her son Adam due to worsening healing decubitus wounds. Patient is mostly bedridden with profound self-care deficit requiring assistance for ADLs from her family. She was admitted in June with UTI and mental status change and was discharged home on family's insistence. Daughter Elis and son Adam who shares POA requested home health services. Over the last 3 months since discharge patient's wound has been worsening with increasing in size and foul-smelling purulent discharge. Family expresses inability to provide care of her anymore. During today's evaluation CT revealed osteomyelitis along with extensive gangrenous changes and tissue necrosis at decubitus and heel ulcerations. White count of 16,000. Cultures were drawn and wound care/podiatry was consulted. Hospital service was consulted for admission At the time of my evaluation patient is pleasantly demented, occasionally will smile. Denies pain, unable to verbalize much. Most of the history was obtained from son Adam who was at bedside. Review of systems 10 point review system could not perform due to patient advanced dementia FORMERLY [facility], [facility] PFS All Active Problems (Updated 10/23/20 @ 15:10 by Ann Ramírez PA-C) Osteomyelitis of foot (Acute) Decubitus ulcer, stage 4 with infection (Acute) Dementia (Acute) Debilitated patient (Acute) Pneumonia (Acute) Dementia (Acute) Acute UTI (Acute) Nausea & vomiting (Acute) Cough (Acute) Fatigue (Acute) Altered mental status (Acute) Generalized weakness (Acute) Cellulitis of right lower leg (Acute) Sinus pause (Acute) Acute alteration in mental status (Acute) Toe pain (Acute) Acute kidney injury (Acute) SIRS (systemic inflammatory response syndrome) (Acute) Fall (Acute) UTI (urinary tract infection) (Acute) Cellulitis (Acute) Hematuria (Acute) Anal fissure (Acute) Rectal prolapse (Acute) Hematochezia (Acute) Renal artery stenosis, [place], bilateral (Acute) Dilated bile duct (Acute) Diverticulosis (Acute) Varices of other sites (Acute) Diverticulitis (Chronic) Osteoporosis (Chronic) Dementia (Chronic) Stroke (Chronic) Primary progressive aphasia (Chronic) Osteoarthrosis (Chronic) History of intravascular stent placement (Chronic) Stress incontinence, female (Chronic) Peripheral vascular disease (Chronic) Lacunar infarction (Chronic) Hypertension, essential (Chronic) Hyperlipemia (Chronic) Heart murmur (Chronic) Esophageal reflux (Chronic) Atherosclerosis (Chronic) Aortic stenosis (Chronic) Medical History Accidental overdose (Resolved) Aortic stenosis (Chronic) 12/30/2014 - Dr. Humphreys Atherosclerosis (Chronic) of extremities Back Pain (Resolved) Cough (Acute) Deep venous thrombosis (Resolved) Degenerative joint disease (Resolved) Knees Dementia (Chronic) Dermatitis (Resolved) Stasis Dermatitis Discitis of lumbar region (Resolved) Diverticulitis (Chronic) Diverticulitis (Resolved) Esophageal reflux (Chronic) Fatigue (Acute) Heart murmur (Chronic) Suspect mitral origin 12/30/2014 - Dr. Humphreys Hyperlipemia (Chronic) Hypertension, essential (Chronic) Lacunar infarction (Chronic) Muscle spasm of right shoulder (Resolved) Nontraumatic rupture of Achilles tendon (Resolved) Peripheral vascular disease (Chronic) Primary progressive aphasia (Chronic) Stress incontinence, female (Chronic) Stroke (Chronic) Subdural hematoma (Resolved) Thrombosis/embolism, venous (Resolved) Urgency of urination (Resolved) Vaginal vault prolapse after hysterectomy (Resolved 03/16/15) Intermittent Surgical History History of discectomy (Resolved) Lumbar History of hernia surgery (Resolved 05/06/14) Ventral History of hysterectomy (Resolved) 1971 History of hysterectomy (Acute) History of intravascular stent placement (Chronic) Peripheral Vascular Disease -Dr Romo History of knee replacement (Resolved) Left History of knee replacement (Resolved) Right History of knee replacement (Acute) History of oophorectomy (Resolved) 1970 With Hysterectomy Status post tendon repair (Resolved) Family History Unknown Cardiac disease Essential hypertension Malignant neoplasm Social History education level: college occupational status: retired 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 smoking status: Never smoker alcohol intake frequency: does not drink substance use type: does not use MEDS/ALLERGIES Home Medications and Allergies Home Medications Medication Instructions Recorded Confirmed Type acetaminophen [Children's 640 mg PO QID PRN 07/03/20 10/23/20 History Acetaminophen] calcium carbonate [Calcium 500] 1,250 mg PO DAILY 10/23/20 10/23/20 History multivit with min-folic acid 0.4 mg PO DAILY 10/23/20 10/23/20 History [Adult One Daily Multivitamin] Allergies Allergy/AdvReac Type Severity Reaction Status Date / Time Thiazides Allergy Mild ELEVATED Verified 10/23/20 11:24 WBC'S Erythromycin Base Allergy Unknown UNKNOWN Verified 10/23/20 11:24 Sulfa (Sulfonamide Allergy Unknown UNKNOWN Verified 10/23/20 11:24 Antibiotics) EXAM Constitutional Vitals: Temp Pulse Resp BP Pulse Ox 97.3 F 59 L 16 160/88 98 10/23/20 11:19 10/23/20 11:19 10/23/20 11:19 10/23/20 11:19 10/23/20 11:19 Makes eye contact but nonverbal, nondistressed Head normocephalic Oral cavity dry No ear nose discharge Eye movement symmetrical Neck supple no lymphadenopathy S1-S2 occasionally irregular Nonlabored breathing Nondistended nontender abdomen, sacral decubiti with gangrenous skin noted Right heel necrotizing soft tissue infection with 3 x 3 cm area of gangrenous skin overhanging with underlying exposed calcaneal bone and due to discharge Psych no agitation Neuro GCS 3 DATA Data Completed and Pending Labs: Labs from last 24 hours 10/23/20 10/23/20 12:10 12:10 WBC 15.2 H RBC 4.81 Hgb 12.5 Hct 39.9 MCV 83.0 MCH 26.0 MCHC 31.3 RDW 14.4 Plt Count 376 MPV 10.5 H Seg Neutrophils % 84 H Lymphocytes % 7 L Monocytes % (Manual) 8 Eosinophils % (Manual) 1 Platelet Estimate Normal RBC Morphology Normal ESR 18 Sodium 133 Potassium 4.2 Chloride 97 Carbon Dioxide 21 L Anion Gap 15.0 BUN 19 Creatinine 0.8 POC Creatinine 0.9 GFR Calculation 65 Glucose 145 H Calcium 9.3 Total Bilirubin 0.6 AST 56 H ALT 47 H Alkaline Phosphatase 85 C-Reactive Protein 8.90 H Total Protein 6.5 Albumin 3.0 L Globulin 3.5 Albumin/Globulin Ratio 0.9 L A/P Narrative A/P Narrative: * Right heel/sacral decubiti necrotizing soft tissue infection right heel/gangrenous changes/infected ulce. Wound care consult/culture/antibiotic coverage * Osteomyelitis right calcaneus-antibiotic coverage/podiatry consult/cultures * History of PVD * Advanced dementia * Adult failure to thrive -freelance writer consult * Profound self-care deficits. Continue directed therapies * Limited code/no intubation CPR okay * Prophylaxis Heparin Plan * Observation admit * Antibiotic coverage * Wound care/podiatry consult * Dementia care/fall watch * Nutrition support * Frequent offloading * Discharge planning per case management likely SNF Time Spent With Patient Time: Total time spent is greater than 50% in coordination of care (as documented) at patient's floor/unit and/or counseling patient:
[2020-10-23] MEDS ORDERED: VANCOMYCIN 750 MG in 0.9 % SODIUM CHLORIDE 250 ML IV ONE (16:00)
[2020-10-23] MEDS ORDERED: ACETAMINOPHEN 325 MG TABLET PO PRN (17:19)
[2020-10-23] MEDS ORDERED: POTASSIUM CHLORIDE 40 MEQ in DEXTROSE 5% IN WATER 500 ML IV PRN (17:19)
[2020-10-23] MEDS ORDERED: POLYETHYLENE GLYCOL 3350 17 GM PACKET PO PRN (17:19)
[2020-10-23] MEDS ORDERED: MAGNESIUM SULFATE 2 GM/50 ML BAG IV PRN (17:19)
[2020-10-23] MEDS ORDERED: ACETAMINOPHEN (PP) 160 MG/5 ML BOTTLE (#120) PO PRN (17:19)
[2020-10-23] MEDS ORDERED: ONDANSETRON 4 MG ODT TABLET SL PRN (17:19)
[2020-10-23] MEDS ORDERED: MELATONIN 3 MG TABLET PO PRN (17:19)
[2020-10-23] MEDS ORDERED: VANCOMYCIN PER PHARMACY IV SCH (17:19)
[2020-10-23] MEDS ORDERED: ONDANSETRON 4 MG/2 ML VIAL IV PRN (17:19)
[2020-10-23] MEDS ORDERED: BISACODYL 10 MG SUPP.RECT PR PRN (17:19)
[2020-10-23] MEDS: HEPARIN 5,000 UNIT/ML VIAL SQ SCH (23:17)
[2020-10-23] MEDS: 0.9 % SODIUM CHLORIDE 10 ML SYRINGE IV SCH (23:17)
[2020-10-23] MEDS: DOCUSATE SODIUM 100 MG CAPSULE PO SCH (23:18)
[2020-10-23] MEDS: SENNOSIDES/DOCUSATE SODIUM 1 TAB TABLET PO SCH (23:18)
[2020-10-23] MEDS ORDERED: traMADol 50 MG TABLET PO PRN (23:37)
[2020-10-24] MEDS: 0.9 % SODIUM CHLORIDE 10 ML SYRINGE IV SCH ×4 (05:01→21:24)
[2020-10-24 07:03] LABS: Basophils # (Auto) 0.06 K/mcL (0.00-0.20); Basophils % (Auto) 0.5 % (0.0-2.0); Eosinophils # (Auto) 0.16 K/mcL (0.00-0.70); Eosinophils % (Auto) 1.4 % (0.0-7.0); Hematocrit 35.5 % (36.0-48.0); Hemoglobin 11.2 g/dL (12.0-15.0); Lymphocytes # (Auto) 1.69 K/mcL (1.50-4.80); Lymphocytes % (Auto) 14.6 % (15.0-49.0); Mean Cell Volume 82.2 fL (80.0-100.0); Mean Corpuscular HGB Conc 31.5 g/dL (31.0-36.0); Mean Platelet Volume 9.9 fL (7.4-10.4); Monocytes # (Auto) 0.98 K/mcL (0.10-0.90); Monocytes % (Auto) 8.5 % (1.0-12.0); Platelet Count 401 K/mcL (140-440); RBC 4.32 M/mcL (4.00-5.20); Red Cell Distribution Width 14.1 % (11.5-14.5); WBC 11.5 K/mcL (4.5-11.0)
[2020-10-24 07:23] LABS: Vancomycin,Random 7.9 ug/mL
[2020-10-24 07:55] LABS: ALT/SGPT 43 U/L (<40); AST/SGOT 31 U/L (<32); Albumin 2.7 gm/dL (3.2-5.2); Albumin/Globulin Ratio 0.9 (1.0-2.3); Alkaline Phosphatase 79 U/L (39-117); Bilirubin,Direct < 0.2 mg/dL (<0.3); Bilirubin,Total 0.5 mg/dL (0.1-1.0); Blood Urea Nitrogen 16 mg/dL (8-23); Calcium 8.9 mg/dL (8.6-10.4); Carbon Dioxide 24 mmol/L (22-30); Chloride 104 mmol/L (96-108); Globulin 3.1 gm/dL (2.2-3.7); Glomerular Filtration Rate 65; Glucose 113 mg/dL (70-105); Lactate Dehydrogenase 208 U/L (135-225); Triglycerides 95 mg/dL (<150); Uric Acid 4.8 mg/dL (2.5-8.0)
[2020-10-24] MEDS: CALCIUM (OYSTER SHELL) 500 MG TABLET PO SCH (09:15)
[2020-10-24] MEDS: DOCUSATE SODIUM 100 MG CAPSULE PO SCH ×2 (09:16→21:24)
[2020-10-24] MEDS: HEPARIN 5,000 UNIT/ML VIAL SQ SCH ×2 (09:16→21:23)
[2020-10-24] MEDS: MULTIVIT,THER IRON,CA,FA & MIN 1 TABLET PO SCH (09:16)
--- NOTE | 2020-10-24 10:27 | General Surgery Consult Note ---
HPI Data of Consult Primary Care Provider: Devon White Consult Narrative Chief complaint: Severe debility, deconditioning and bed confinement. Infected Wounds. Reason for consult: Wound care and debridement. Later placement to a SNF . History of present illness: Elderly lady being cared for at home by her son (POA) and daughter. Family members are unable to care for her at home. Brought to the emergency room and later admitted to hospital for SEPSIS, CSSSI and infected pressure ulcers of both feet and sacral region. Elderly lady with severe deconditioning and inability of family members to care for her at home. cc:: CC: Bhaskar Agrawal [facility] PFS All Active Problems Osteomyelitis of foot (Acute) Decubitus ulcer, stage 4 with infection (Acute) Dementia (Acute) Debilitated patient (Acute) Pneumonia (Acute) Dementia (Acute) Acute UTI (Acute) Nausea & vomiting (Acute) Cough (Acute) Fatigue (Acute) Altered mental status (Acute) Generalized weakness (Acute) Cellulitis of right lower leg (Acute) Sinus pause (Acute) Acute alteration in mental status (Acute) Toe pain (Acute) Acute kidney injury (Acute) SIRS (systemic inflammatory response syndrome) (Acute) Fall (Acute) UTI (urinary tract infection) (Acute) Cellulitis (Acute) Hematuria (Acute) Anal fissure (Acute) Rectal prolapse (Acute) Hematochezia (Acute) Renal artery stenosis, [place], bilateral (Acute) Dilated bile duct (Acute) Diverticulosis (Acute) Varices of other sites (Acute) Diverticulitis (Chronic) Osteoporosis (Chronic) Dementia (Chronic) Stroke (Chronic) Primary progressive aphasia (Chronic) Osteoarthrosis (Chronic) History of intravascular stent placement (Chronic) Stress incontinence, female (Chronic) Peripheral vascular disease (Chronic) Lacunar infarction (Chronic) Hypertension, essential (Chronic) Hyperlipemia (Chronic) Heart murmur (Chronic) Esophageal reflux (Chronic) Atherosclerosis (Chronic) Aortic stenosis (Chronic) Medical History Accidental overdose (Resolved) Aortic stenosis (Chronic) 12/30/2014 - Dr. Humphreys Atherosclerosis (Chronic) of extremities Back Pain (Resolved) Cough (Acute) Deep venous thrombosis (Resolved) Degenerative joint disease (Resolved) Knees Dementia (Chronic) Dermatitis (Resolved) Stasis Dermatitis Discitis of lumbar region (Resolved) Diverticulitis (Chronic) Diverticulitis (Resolved) Esophageal reflux (Chronic) Fatigue (Acute) Heart murmur (Chronic) Suspect mitral origin 12/30/2014 - Dr. Humphreys Hyperlipemia (Chronic) Hypertension, essential (Chronic) Lacunar infarction (Chronic) Muscle spasm of right shoulder (Resolved) Nontraumatic rupture of Achilles tendon (Resolved) Peripheral vascular disease (Chronic) Primary progressive aphasia (Chronic) Stress incontinence, female (Chronic) Stroke (Chronic) Subdural hematoma (Resolved) Thrombosis/embolism, venous (Resolved) Urgency of urination (Resolved) Vaginal vault prolapse after hysterectomy (Resolved 03/16/15) Intermittent Surgical History History of discectomy (Resolved) Lumbar History of hernia surgery (Resolved 05/06/14) Ventral History of hysterectomy (Resolved) 1971 History of hysterectomy (Acute) History of intravascular stent placement (Chronic) Peripheral Vascular Disease -Dr Romo History of knee replacement (Resolved) Left History of knee replacement (Resolved) Right History of knee replacement (Acute) History of oophorectomy (Resolved) 1971 With Hysterectomy Status post tendon repair (Resolved) Family History Unknown Cardiac disease Essential hypertension Malignant neoplasm Social History education level: college occupational status: retired 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 smoking status: Former smoker alcohol intake frequency: does not drink substance use type: does not use MEDS/ALLERGIES Home Medications and Allergies Home Medications Medication Instructions Recorded Confirmed Type acetaminophen [Children's 640 mg PO QID PRN 07/03/20 10/23/20 History Acetaminophen] calcium carbonate [Calcium 500] 1,250 mg PO DAILY 10/23/20 10/23/20 History multivit with min-folic acid 0.4 mg PO DAILY 10/23/20 10/23/20 History [Adult One Daily Multivitamin] Allergies Allergy/AdvReac Type Severity Reaction Status Date / Time Thiazides Allergy Mild ELEVATED Verified 10/23/20 18:54 WBC'S Erythromycin Base Allergy Unknown UNKNOWN Verified 10/23/20 18:54 Sulfa (Sulfonamide Allergy Unknown UNKNOWN Verified 10/23/20 18:54 Antibiotics) Physical Examination Vital Signs Vital signs: Temp Pulse Resp BP Pulse Ox 96.7 F L 58 L 18 158/65 94 10/24/20 07:00 10/24/20 07:00 10/24/20 07:00 10/24/20 07:00 10/24/20 07:00 General physical appearance General physical exam: moderate pain, cachectic, chronically ill and other (Contracted and Debilitated. Infected, foul smelling open wounds of both feet and sacral regions. ) Eyes Eye exam: PERRL and normal ocular movement ENT ENT exam: normal pinna, normal mucosa and no congestion Head Head exam IM: Present atraumatic and normocephalic Neck Neck exam: no masses and no venous distension Cardiovascular Cardiovascular exam IM: Present normal rate and rhythm Respiratory Respiratory exam: normal expansion and clear to auscultation Abdomen Abdomen: Present soft, non tender and bowel sounds Integumentary Integumentary: Present other (Infectedopen wounds of RIGHT posterior foot Stage 4 extend to bone. LEFT lateral and psoterior foot Stage 5. Covered with necrotic skin. Sacral wounds are Stage 5 densely adherent to wound base. SEE photographs.) Neurologic Neurologic: Present other (CONTRACTED. No lateralizing signs. Unremarkable examination. ) Musculoskeletal Musculoskeletal: Present other (Bed bound. Contracted. ) Psychiatric Psychiatric: Present other (Unable to determine. ) Results Labs Result diagrams: 10/24/20 05:21 10/24/20 05:21 Labs: Abnormal lab results 10/23/20 10/23/20 10/24/20 Range/Units 12:10 12:10 05:21 WBC 15.2 H 11.5 H (4.5-11.0) K/mcL Hgb 11.2 L (12.0-15.0) g/dL Hct 35.5 L (36.0-48.0) % MCH 25.9 L (26.0-34.0) pg MPV 10.5 H (7.4-10.4) fL Lymph % (Auto) 14.6 L (15.0-49.0) % [place] # (Auto) 0.98 H (0.10-0.90) K/mcL Seg Neutrophils % 84 H (38-78) % Lymphocytes % 7 L (15-49) % Absolute Neutrophils 8.65 H (1.80-8.00) K/mcL Carbon Dioxide 21 L (22-30) mmol/L Glucose 145 H (70-105) mg/dL AST 56 H (<32) U/L ALT 47 H (<40) U/L C-Reactive Protein 8.90 H (0.03-0.80) mg/dL Total Protein (5.9-8.4) gm/dL Albumin 3.0 L (3.2-5.2) gm/dL Albumin/Globulin Ratio 0.9 L (1.0-2.3) 10/24/20 Range/Units 05:21 WBC (4.5-11.0) K/mcL Hgb (12.0-15.0) g/dL Hct (36.0-48.0) % MCH (26.0-34.0) pg MPV (7.4-10.4) fL Lymph % (Auto) (15.0-49.0) % [place] # (Auto) (0.10-0.90) K/mcL Seg Neutrophils % (38-78) % Lymphocytes % (15-49) % Absolute Neutrophils (1.80-8.00) K/mcL Carbon Dioxide (22-30) mmol/L Glucose 113 H (70-105) mg/dL AST (<32) U/L ALT 43 H (<40) U/L C-Reactive Protein (0.03-0.80) mg/dL Total Protein 5.8 L (5.9-8.4) gm/dL Albumin 2.7 L (3.2-5.2) gm/dL Albumin/Globulin Ratio 0.9 L (1.0-2.3) Diabetes panel 10/23/20 10/24/20 Range/Units 12:10 05:21 Sodium 133 136 (133-145) mmol/L Potassium 4.2 3.7 (3.3-5.1) mmol/L Chloride 97 104 (96-108) mmol/L Carbon Dioxide 21 L 24 (22-30) mmol/L BUN 19 16 (8-23) mg/dL Creatinine 0.8 0.8 (0.6-1.1) mg/dL Glucose 145 H 113 H (70-105) mg/dL Calcium 9.3 8.9 (8.6-10.4) mg/dL AST 56 H 31 (<32) U/L ALT 47 H 43 H (<40) U/L Alkaline Phosphatase 85 79 (39-117) U/L Total Protein 6.5 5.8 L (5.9-8.4) gm/dL Albumin 3.0 L 2.7 L (3.2-5.2) gm/dL Triglycerides 95 (<150) mg/dL Calcium panel 10/23/20 10/24/20 Range/Units 12:10 05:21 Calcium 9.3 8.9 (8.6-10.4) mg/dL Phosphorus 3.0 (2.5-4.5) mg/dL Albumin 3.0 L 2.7 L (3.2-5.2) gm/dL Pituitary panel 10/23/20 10/24/20 Range/Units 12:10 05:21 Sodium 133 136 (133-145) mmol/L Potassium 4.2 3.7 (3.3-5.1) mmol/L Chloride 97 104 (96-108) mmol/L Carbon Dioxide 21 L 24 (22-30) mmol/L BUN 19 16 (8-23) mg/dL Creatinine 0.8 0.8 (0.6-1.1) mg/dL Glucose 145 H 113 H (70-105) mg/dL Calcium 9.3 8.9 (8.6-10.4) mg/dL Adrenal panel 10/23/20 10/24/20 Range/Units 12:10 05:21 Sodium 133 136 (133-145) mmol/L Potassium 4.2 3.7 (3.3-5.1) mmol/L Chloride 97 104 (96-108) mmol/L Carbon Dioxide 21 L 24 (22-30) mmol/L BUN 19 16 (8-23) mg/dL Creatinine 0.8 0.8 (0.6-1.1) mg/dL Glucose 145 H 113 H (70-105) mg/dL Calcium 9.3 8.9 (8.6-10.4) mg/dL Total Bilirubin 0.6 0.5 (0.1-1.0) mg/dL AST 56 H 31 (<32) U/L ALT 47 H 43 H (<40) U/L Alkaline Phosphatase 85 79 (39-117) U/L Total Protein 6.5 5.8 L (5.9-8.4) gm/dL Albumin 3.0 L 2.7 L (3.2-5.2) gm/dL All other labs normal. A/P Narrative A/P Narrative: Assessment: Chronic Sepsis. CSSSI, Infected foul smelling pressure ulcers both feet and sacral regions. Plan: Surgical debridement and tissue biopsies and cultures in OR tomorrow. Contacted family members. They consent to proceed with surgical debridement. Time Spent With Patient Time: Total time spent is greater than 50% in coordination of care (as documented) at patient's floor/unit and/or counseling patient: Total time spent with greater than 50% in coordination of care (as documented) at patient's floor/unit and/or counseling patient:: Greater than 35 minutes
[2020-10-24] MEDS: cefTRIAXone 2 GM in DEXTROSE 5% IN WATER 50 ML IV SCH (11:00)
[2020-10-24] MEDS: VANCOMYCIN 750 MG in 0.9 % SODIUM CHLORIDE 250 ML IV SCH (11:34)
--- NOTE | 2020-10-24 11:55 | Internal Med Progress Note ---
SUBJECTIVE Subjective Patient information: Note initiated : 10/24/20 at 11:51 am Service Date, if different from initiated Date: [] Patient: Yelitza Knight a 89 y/o F admitted on 10/23/20 for foot wounds. Chief Complaint: [] Interval history: Ms. Knight is a 89 year old F with a history of advanced dementia who was brought to the ER by her son Adam due to worsening healing decubitus wounds. Patient is mostly bedridden with profound self-care deficit requiring assistance for ADLs from her family. She was admitted in June with UTI and mental status change and was discharged home on family's insistence. Daughter Elis and son Adam who shares POA requested home health services. Over the last 3 months since discharge patient's wound has been worsening with increasing in size and foul-smelling purulent discharge. Family expresses inability to provide care of her anymore. During today's evaluation CT revealed osteomyelitis along with extensive gangrenous changes and tissue necrosis at decubitus and heel ulcerations. White count of 16,000. Cultures were drawn and wound care/podiatry was consulted. Hospital service was consulted for admission At the time of my evaluation patient is pleasantly demented, occasionally will smile. Denies pain, unable to verbalize much. Most of the history was obtained from son Adam who was at bedside. 10/24-patient doing well. Ongoing evaluation by wound care. Continue antibiotic coverage. Mental status at baseline. Wound care request family conference in a.m. for goals of care/surgical intervention. Case management coordinating SNF transfer on discharge. Constitutional Vitals: Vital Signs Temp Pulse Resp BP Pulse Ox 96.7 F L 58 L 18 158/65 94 10/24/20 07:00 10/24/20 07:00 10/24/20 07:00 10/24/20 07:00 10/24/20 07:00 Period Temp Pulse Resp BP Sys/Martel Pulse Ox Last 24 Hr 96.7 F-98.1 F 58-78 16-20 142-176/59-78 92-99 Intake and Output 10/23/20 10/24/20 10/24/20 21:59 05:59 13:59 Intake Total 238 0 Output Total 1 Balance 238 -1 Weight 49.124 kg 49.124 kg pleasant demeanor however nonverbal with underlying dementia Nonlabored breathing No anxiety Bilateral foot ulcers, exposed calcaneus right side Sacral decubiti Intake & Output: Intake & Output 10/23/20 10/24/20 10/24/20 21:59 05:59 13:59 Intake Total 238 0 Output Total 1 Balance 238 -1 Weight 49.124 kg 49.124 kg Intake: IV 238 Vancomycin 750 mg In Sodium 188 Chloride 0.9% 250 ml @ 250 mls/ hr IV ONCE ONE Rx#:[id number] Rocephin 2 gm In Dextrose 5% in 50 Water 50 ml @ 100 mls/hr IV ONCE ONE Rx#:[id number] Oral 0 0 Output: # of times incontinent of urine 1 Other: Meal Nourishment/Supplement Percent of Meal Consumed 25% Feeding Ability Total Assistance Nourishment/Supplement name apple sauce # Voids 1 OBJ DATA Labs CBC & Chem 7: 10/24/20 05:21 10/24/20 05:21 Labs: Abnormal Lab Results 10/24/20 10/24/20 10/23/20 05:21 05:21 12:10 WBC 11.5 H 15.2 H Hgb 11.2 L Hct 35.5 L MCH 25.9 L MPV 10.5 H Lymph % (Auto) 14.6 L [place] # (Auto) 0.98 H Seg Neutrophils % 84 H Lymphocytes % 7 L Absolute Neutrophils 8.65 H Carbon Dioxide Glucose 113 H AST ALT 43 H C-Reactive Protein Total Protein 5.8 L Albumin 2.7 L Albumin/Globulin Ratio 0.9 L 10/23/20 12:10 WBC Hgb Hct MCH MPV Lymph % (Auto) [place] # (Auto) Seg Neutrophils % Lymphocytes % Absolute Neutrophils Carbon Dioxide 21 L Glucose 145 H AST 56 H ALT 47 H C-Reactive Protein 8.90 H Total Protein Albumin 3.0 L Albumin/Globulin Ratio 0.9 L Meds: Medications Acetaminophen (Tylenol) 650 mg PO Q4-6HP PRN; Protocol PRN Reason: Per Pain Protocol/Fever > 101 Hydrocodone Bitart/Acetaminophen ([place] 5/325mg) 0.5 tab PO Q6HP PRN PRN Reason: Per Pain Protocol Bisacodyl (Dulcolax) 10 mg ND Q2-3DAYS PRN PRN Reason: Constipation Calcium Carbonate/Glycine (Oscal) 1,000 mg PO DAILY [facility]BERT Last Admin: 10/24/20 09:15 Dose: 1,000 mg Documented by: Docusate Sodium (Colace) 100 mg PO BID [facility] Last Admin: 10/24/20 09:16 Dose: 100 mg Documented by: Heparin Sodium (Porcine) (Heparin) 5,000 unit SQ Q12 [facility] Last Admin: 10/24/20 09:16 Dose: 5,000 unit Documented by: Ceftriaxone Sodium 2 gm/ (Dextrose) 50 mls @ 100 mls/hr IV DAILY [facility]; Protocol Last Admin: 10/24/20 11:00 Dose: 100 mls/hr Documented by: Potassium Chloride 40 meq/ (Dextrose) 520 mls @ 130 mls/hr IV UD PRN PRN Reason: K+ = or < 3.5 Acetaminophen (Ofirmev) 650 mg in 65 mls @ 130 mls/hr IV Q6HP PRN; Protocol PRN Reason: Per Pain Protocol/Fever > 101 Magnesium Sulfate (Magnesium Sulfate) 2 gm in 50 mls @ 50 mls/hr IV UD PRN PRN Reason: MG = or < 1.7 Vancomycin HCl 750 mg/ Sodium (Chloride) 250 mls @ 250 mls/hr IV Q24H [facility] Last Admin: 10/24/20 11:34 Dose: 250 mls/hr Documented by: Iron Carb/Multivit/[place]/Folic Acid (Multivitamin W/Minerals) 1 tab PO DAILY [facility] Last Admin: 10/24/20 09:16 Dose: 1 tab Documented by: Melatonin (Melatonin 3mg Tablet) 3 mg PO HSP PRN PRN Reason: Insomnia Ondansetron HCl (Zofran Odt) 4 mg SL Q4-6HP PRN; Protocol PRN Reason: Nausea And Vomiting Ondansetron HCl (Zofran) 4 mg IV Q4-6HP PRN; Protocol PRN Reason: Nausea And Vomiting Polyethylene Glycol (Miralax) 17 gm PO DAILYP PRN PRN Reason: Constipation Senna/Docusate Sodium (Senna Plus Tablet) 1 tab PO HS [facility] Last Admin: 10/23/20 23:18 Dose: 1 tab Documented by: Sodium Chloride (Saline Flush) 10 ml IV Q8 [facility] Last Admin: 10/24/20 05:01 Dose: 10 ml Documented by: Tramadol HCl (Ultram) 50 mg PO Q6HP PRN; Protocol PRN Reason: Pain Vancomycin HCl (Vancomycin Per Pharmacy) 1 order IV UD [facility]BERT; Protocol A/P Narrative A/P Narrative: * Right heel/sacral decubiti/left posterior foot necrotizing soft tissue infection /gangrenous changes/infected ulcer. On antibiotic coverage/wound care ongoing per Dr. Patel * Osteomyelitis right calcaneus-antibiotic coverage/cultures, likely surgical intervention in a.m. * History of PVD * Advanced dementia, at baseline stable * Adult failure to thrive -diet per dietitian * Profound self-care deficits. Continue directed therapies * Limited code/no intubation CPR okay * Prophylaxis Heparin Plan * Continue antibiotic coverage * Wound care per Dr. Sabillon * Family conference a.m. * Dementia care/fall watch * Nutrition support * Discharge planning per case management likely SNF Time Spent With Patient Time: Total time spent is greater than 50% in coordination of care (as documented) at patient's floor/unit and/or counseling patient: QUALITY VTE Deep Vein Thrombosis/Pulmonary Embolism Present on Admission: No
[2020-10-24] MEDS: 0.9 % SODIUM CHLORIDE 1,000 ML IV SCH (18:22)
[2020-10-24] MEDS: SENNOSIDES/DOCUSATE SODIUM 1 TAB TABLET PO SCH (21:24)
[2020-10-25] MEDS: 0.9 % SODIUM CHLORIDE 10 ML SYRINGE IV SCH ×5 (05:57→20:50)
[2020-10-25] MEDS: 0.9 % SODIUM CHLORIDE 1,000 ML IV SCH ×3 (06:46→15:43)
[2020-10-25 08:28] LABS: Basophils # (Auto) 0.06 K/mcL (0.00-0.20); Basophils % (Auto) 0.6 % (0.0-2.0); Eosinophils # (Auto) 0.22 K/mcL (0.00-0.70); Eosinophils % (Auto) 2.1 % (0.0-7.0); Hemoglobin 10.4 g/dL (12.0-15.0); Lymphocytes # (Auto) 1.72 K/mcL (1.50-4.80); Lymphocytes % (Auto) 16.4 % (15.0-49.0); Mean Cell Volume 84.2 fL (80.0-100.0); Mean Corpuscular HGB Conc 30.6 g/dL (31.0-36.0); Monocytes # (Auto) 0.97 K/mcL (0.10-0.90); Monocytes % (Auto) 9.2 % (1.0-12.0); Neutrophils % (Auto) 71.7 % (38.0-78.0); Platelet Count 362 K/mcL (140-440); RBC 4.04 M/mcL (4.00-5.20); Red Cell Distribution Width 14.3 % (11.5-14.5); WBC 10.5 K/mcL (4.5-11.0)
[2020-10-25] MEDS: CALCIUM (OYSTER SHELL) 500 MG TABLET PO SCH (08:43)
[2020-10-25] MEDS: MULTIVIT,THER IRON,CA,FA & MIN 1 TABLET PO SCH (08:43)
[2020-10-25] MEDS: DOCUSATE SODIUM 100 MG CAPSULE PO SCH ×2 (08:43→20:54)
[2020-10-25] MEDS: HEPARIN 5,000 UNIT/ML VIAL SQ SCH ×2 (08:44→20:49)
[2020-10-25] MEDS: cefTRIAXone 2 GM in DEXTROSE 5% IN WATER 50 ML IV SCH (08:44)
--- NOTE | 2020-10-25 08:54 | XRay Report ---
CLINICAL INFORMATION: Interval Change COMPARISON: 07/03/2020 FINDINGS: Moderate cardiomegaly is unchanged. Pacemaker leads remain in stable satisfactory position. Mediastinum is unremarkable. The pulmonary vessels are mildly distended compared to baseline study from 08/21/2018. Moderate region of consolidated atelectasis or, less likely, infiltrate has developed in the left lower lobe - retrocardiac region. Moderate interstitial disease in both mid and lower lungs show slight progression from exam four months ago - suspect interstitial edema from CHF. It was not present on studies less than two years ago 12/28/2018. Small bilateral pleural effusions are unchanged IMPRESSION: 1. Large region of consolidated atelectasis or, less likely, infiltrate in the left lower lobe manifest as increased retrocardiac density. Suspect mucous plug obstructing the left lower lobe bronchus. 2. Moderate interstitial disease throughout both mid and lower lungs progressing from exam four months prior. This likely represents edema from CHF. Consider diuretic trial, if there is clinical and serologic support for CHF. Interpreted and Authenticated by: Marcello Márquez 10/25/20
[2020-10-25 09:04] LABS: ALT/SGPT 36 U/L (<40); AST/SGOT 27 U/L (<32); Albumin 2.4 gm/dL (3.2-5.2); Albumin/Globulin Ratio 0.8 (1.0-2.3); Alkaline Phosphatase 69 U/L (39-117); Bilirubin,Direct < 0.2 mg/dL (<0.3); Bilirubin,Total 0.3 mg/dL (0.1-1.0); Blood Urea Nitrogen 13 mg/dL (8-23); Calcium 8.9 mg/dL (8.6-10.4); Carbon Dioxide 19 mmol/L (22-30); Chloride 101 mmol/L (96-108); Glomerular Filtration Rate 80; Glucose 97 mg/dL (70-105); Lactate Dehydrogenase 221 U/L (135-225); Phosphorous 3.2 mg/dL (2.5-4.5); Triglycerides 71 mg/dL (<150); Uric Acid 4.4 mg/dL (2.5-8.0)
[2020-10-25] MEDS: VANCOMYCIN 750 MG in 0.9 % SODIUM CHLORIDE 250 ML IV SCH (09:21)
--- NOTE | 2020-10-25 10:55 | Internal Med Progress Note ---
SUBJECTIVE Subjective Patient information: Note initiated : 10/25/20 at 10:52 am Service Date, if different from initiated Date: [] Patient: Yelitza Knight a 89 y/o F admitted on 10/23/20 for foot wounds. Chief Complaint: [] Interval history: Ms. Knight is a 89 year old F with a history of advanced dementia who was brought to the ER by her son Adam due to worsening healing decubitus wounds. Patient is mostly bedridden with profound self-care deficit requiring assistance for ADLs from her family. She was admitted in June with UTI and mental status change and was discharged home on family's insistence. Daughter Elis and son Adam who shares POA requested home health services. Over the last 3 months since discharge patient's wound has been worsening with increasing in size and foul-smelling purulent discharge. Family expresses inability to provide care of her anymore. During today's evaluation CT revealed osteomyelitis along with extensive gangrenous changes and tissue necrosis at decubitus and heel ulcerations. White count of 16,000. Cultures were drawn and wound care/podiatry was consulted. Hospital service was consulted for admission At the time of my evaluation patient is pleasantly demented, occasionally will smile. Denies pain, unable to verbalize much. Most of the history was obtained from son Adam who was at bedside. 10/24-patient doing well. Ongoing evaluation by wound care. Continue antibiotic coverage. Mental status at baseline. Wound care request family conference in a.m. for goals of care/surgical intervention. Case management coordinating SNF transfer on discharge. 10/25-patient doing well. No overnight events. No concerns per staff. debridement today by Dr. Leary. mental status remains at baseline. Currently n.p.o. Labs and hemodynamics stable. On nutrition support Constitutional Vitals: Vital Signs Temp Pulse Resp BP Pulse Ox 98.3 F 63 20 125/57 95 10/25/20 07:00 10/25/20 07:00 10/25/20 07:00 10/25/20 07:00 10/25/20 07:00 Period Temp Pulse Resp BP Sys/Martel Pulse Ox Last 24 Hr 96.4 F-98.4 F 54-63 16-24 107-154/54-67 93-96 Intake and Output 10/24/20 10/25/2010/25/21 21:59 05:59 13:59 Intake Total 490 230 954 Output Total 2 1 Balance 488 229 954 Weight 49.033 kg mentation at baseline smiles but nonverbal Nonlabored breathing No apparent distress Intake & Output: Intake & Output 10/24/20 10/25/20 10/25/20 21:59 05:59 13:59 Intake Total 490 230 954 Output Total 2 1 Balance 488 229 954 Weight 49.033 kg Intake: Nourishment/Supplement quantity 120 (ml) IV 250 954 Sodium Chloride 0.9% 1,000 ml @ 954 75 mls/hr IV .[id number] [facility] Rx#: [id number] Vancomycin 750 mg In Sodium 250 Chloride 0.9% 250 ml @ 250 mls/ hr IV Q24H [facility] Rx#:[id number] Oral 240 110 Output: # of times incontinent of urine 2 1 Other: Meal Dinner Nourishment/Supplement Percent of Meal Consumed 10% 100% Feeding Ability Total Assistance Total Assistance Nourishment/Supplement name chocolate magic cup OBJ DATA Labs CBC & Chem 7: 10/25/20 05:16 10/25/20 05:16 Labs: Abnormal Lab Results 10/25/20 10/25/20 10/24/20 05:16 05:16 05:21 WBC Hgb 10.4 L Hct 34.0 L MCH 25.7 L MCHC 30.6 L MPV Lymph % (Auto) [place] # (Auto) 0.97 H Seg Neutrophils % Lymphocytes % Absolute Neutrophils Carbon Dioxide 19 L Glucose 113 H AST ALT 43 H C-Reactive Protein Total Protein 5.4 L 5.8 L Albumin 2.4 L 2.7 L Albumin/Globulin Ratio 0.8 L 0.9 L 10/24/20 10/23/20 10/23/20 05:21 12:10 12:10 WBC 11.5 H 15.2 H Hgb 11.2 L Hct 35.5 L MCH 25.9 L MCHC MPV 10.5 H Lymph % (Auto) 14.6 L [place] # (Auto) 0.98 H Seg Neutrophils % 84 H Lymphocytes % 7 L Absolute Neutrophils 8.65 H Carbon Dioxide 21 L Glucose 145 H AST 56 H ALT 47 H C-Reactive Protein 8.90 H Total Protein Albumin 3.0 L Albumin/Globulin Ratio 0.9 L Meds: Medications Acetaminophen (Tylenol) 650 mg PO Q4-6HP PRN; Protocol PRN Reason: Per Pain Protocol/Fever > 101 Hydrocodone Bitart/Acetaminophen ([place] 5/325mg) 0.5 tab PO Q6HP PRN PRN Reason: Per Pain Protocol Bisacodyl (Dulcolax) 10 mg NM Q2-3DAYS PRN PRN Reason: Constipation Calcium Carbonate/Glycine (Oscal) 1,000 mg PO DAILY [facility] Last Admin: 10/25/20 08:43 Dose: Not Given Documented by: Docusate Sodium (Colace) 100 mg PO BID [facility] Last Admin: 10/25/20 08:43 Dose: Not Given Documented by: Heparin Sodium (Porcine) (Heparin) 5,000 unit SQ Q12 [facility] Last Admin: 10/25/20 08:44 Dose: 5,000 unit Documented by: Heparin Sodium (Porcine) (Heparin 10 Units/Ml Flush) 2 ml IV Q12 [facility] Last Admin: 10/25/20 08:43 Dose: Not Given Documented by: Ceftriaxone Sodium 2 gm/ (Dextrose) 50 mls @ 100 mls/hr IV DAILY [facility]; Protocol Last Admin: 10/25/20 08:44 Dose: 100 mls/hr Documented by: Potassium Chloride 40 meq/ (Dextrose) 520 mls @ 130 mls/hr IV UD PRN PRN Reason: K+ = or < 3.5 Acetaminophen (Ofirmev) 650 mg in 65 mls @ 130 mls/hr IV Q6HP PRN; Protocol PRN Reason: Per Pain Protocol/Fever > 101 Magnesium Sulfate (Magnesium Sulfate) 2 gm in 50 mls @ 50 mls/hr IV UD PRN PRN Reason: MG = or < 1.7 Vancomycin HCl 750 mg/ Sodium (Chloride) 250 mls @ 250 mls/hr IV Q24H [facility] Last Admin: 10/25/20 09:21 Dose: 250 mls/hr Documented by: Sodium Chloride (Sodium Chloride 0.9%) 1,000 mls @ 75 mls/hr IV .[id number] [facility] Last Admin: 10/25/20 07:05 Dose: 75 mls/hr Documented by: Iron Carb/Multivit/[place]/Folic Acid (Multivitamin W/Minerals) 1 tab PO DAILY [facility] Last Admin: 10/25/20 08:43 Dose: Not Given Documented by: Melatonin (Melatonin 3mg Tablet) 3 mg PO HSP PRN PRN Reason: Insomnia Ondansetron HCl (Zofran Odt) 4 mg SL Q4-6HP PRN; Protocol PRN Reason: Nausea And Vomiting Ondansetron HCl (Zofran) 4 mg IV Q4-6HP PRN; Protocol PRN Reason: Nausea And Vomiting Polyethylene Glycol (Miralax) 17 gm PO DAILYP PRN PRN Reason: Constipation Senna/Docusate Sodium (Senna Plus Tablet) 1 tab PO HS [facility] Last Admin: 10/24/20 21:24 Dose: 1 tab Documented by: Sodium Chloride (Saline Flush) 10 ml IV Q8 [facility] Last Admin: 10/25/20 05:57 Dose: Not Given Documented by: Sodium Chloride (Saline Flush) 10 ml IV Q12 [facility] Last Admin: 10/25/20 08:43 Dose: Not Given Documented by: Tramadol HCl (Ultram) 50 mg PO Q6HP PRN; Protocol PRN Reason: Pain Vancomycin HCl (Vancomycin Per Pharmacy) 1 order IV UD [facility]; Protocol A/P Narrative A/P Narrative: * Right heel/sacral decubiti/left posterior foot necrotizing soft tissue infection /gangrenous changes/infected ulcer. On antibiotic coverage/surgical debridement today by Dr. Sabillon * Osteomyelitis right calcaneus-continuing antibiotic coverage/cultures, likely surgical intervention in a.m. * Advanced dementia, at baseline stable * Adult failure to thrive -diet per dietitian * Profound self-care deficits. Continue directed therapies * Limited code/no intubation CPR okay * Prophylaxis Heparin Plan * Review postop * Continue wound care per Dr. Sabillon * De-escalate antibiotics based on operative cultures * Dementia care/fall watch * Nutrition support * Discharge planning per case management likely SNF Time Spent With Patient Time: Total time spent is greater than 50% in coordination of care (as documented) at patient's floor/unit and/or counseling patient: QUALITY VTE Deep Vein Thrombosis/Pulmonary Embolism Present on Admission: No
[2020-10-25] MEDS ORDERED: LIDOCAINE HCL/PF 100 MG/5 ML SYRINGE IV ONE (12:43)
[2020-10-25] MEDS ORDERED: MIDAZOLAM 2 MG/2 ML VIAL ONE (12:43)
[2020-10-25] MEDS ORDERED: KETAMINE 100 MG/ML ML ONE (12:43)
[2020-10-25] MEDS ORDERED: DEXAMETHASONE 10 MG/ML VIAL ONE (12:43)
[2020-10-25] MEDS ORDERED: GLYCOPYRROLATE 0.2 MG/ML VIAL IV ONE (12:43)
[2020-10-25] MEDS ORDERED: fentaNYL 100 MCG/2 ML VIAL IV ONE (12:43)
[2020-10-25] MEDS ORDERED: ONDANSETRON 4 MG/2 ML VIAL ONE (12:43)
[2020-10-25] MEDS ORDERED: PROPOFOL 200 MG/20 ML VIAL IV ONE (12:43)
[2020-10-25] MEDS ORDERED: PHENYLEPHRINE 10 MG/ML VIAL ONE (12:43)
[2020-10-25] MEDS ORDERED: ONDANSETRON 4 MG/2 ML VIAL IV PRN (13:14)
[2020-10-25] MEDS ORDERED: MEPERIDINE 25 MG/ML SYRINGE IV PRN (13:14)
[2020-10-25] MEDS ORDERED: IPRATROPIUM/ALBUTEROL 3 ML AMPUL.NEB NEB PRN (13:14)
[2020-10-25] MEDS ORDERED: LACTATED RINGERS 1,000 ML IV SCH (13:15)
[2020-10-25] MEDS ORDERED: GENTAMICIN SULFATE 800 MG/20 ML VIAL IR ONE (13:22)
[2020-10-25] MEDS: fentaNYL 100 MCG/2 ML VIAL IV PRN ×2 (14:15→14:28)
--- NOTE | 2020-10-25 14:34 | Brief Operative Note ---
Brief Operative Note Date of procedure: 10/25/20 Pre-op diagnosis: Chronic infected wounds BOTH feet. Rt heel & Lt lateral foot. Sacral ulcers Post-op diagnosis: same Procedure: Surgical debridement. Tissue for c/s and pathology. OPEN packing of Right heel wound with Betadine gauze. All other wounds dressed with Xeroform gauze, 4x4 gauze, and absorbant dressings. Grafts/Implants: No Anesthesia: GLMA Findings: See photographs. Dimensions: LEFT lateral foot wounds # 1. Anterior lateral wound 7x4x0.5CM Stage 4 Exposed tendon / bone surface # 2. Left lateral posterior wound 2x1.5x0.5 CM Stage 4 Exposed tendon / synovial tissue # 3. Left lateral malleolus ankle Stage 2 exposed dermis 2.5 x 1.5 x 0.5 CM RIGHT posterior heel 5 x 4.5 x 2 CM Stage 4 Exposed tendon and bone. Right posterior buttock 2.5 x 1.5 x 1 CM Stage 3 Exposed adipose tissue Left posterior buttock 2.0 x 1.0 x 0.5 CM Stage 3 Exposed adipose tissue Complications: none Surgeon: Glenn Sabillon Estimated blood loss (cc): 10 Specimens Removed/Pathology: other (Tissue for c/s and pathology) Condition: stable Disposition: PACU
--- NOTE | 2020-10-25 14:35 | Brief Operative Note ---
Brief Operative Note Date of procedure: 10/25/20
--- NOTE | 2020-10-25 15:33 | Operative Note ---
DATE OF OPERATION: 10/25/2020 PREOPERATIVE DIAGNOSES: 1. Chronic infected wounds of both feet, right posterior heel and left lateral foot. 2. Sacral pressure ulcers, posterior left and right buttocks. POSTOPERATIVE DIAGNOSES: 1. Chronic infected wounds of both feet, right posterior heel and left lateral foot. 2. Sacral pressure ulcers, posterior left and right buttocks. OPERATION: 1. Surgical debridement. 2. Pulse lavage irrigation of the right posterior heel wound. Open packing. 3. Taffy Puller samples were obtained from the left heel wound for cultures and sensitivities and tissue samples for pathology. 4. All wounds were dressed with Xeroform gauze, 4 x 4 gauze, Kerlix bandage. Right posterior heel wound was packed open with Betadine-soaked gauze and absorbent dressings. SURGEON: Glenn Sabillon M.D. ANESTHESIA: Laryngeal mask airway. ANESTHESIOLOGIST: Emi Herrera M.D. ESTIMATED BLOOD LOSS: 10 mL. COUNTS: Count of swabs, instruments, and needles reported to be correct. CONDITION: Operation was well tolerated. FINDINGS: Please see photographs. WOUND DIMENSIONS: 1. Left lateral anterior wound, 7 x 4 x 0.5 cm, stage 4, exposed tendon and bone surface. 2. Left lateral posterior wound, 2 x 1.5 x 0.5 cm, stage 4, exposed tendon and synovial tissue. 3. Left lateral malleolus ankle pressure ulcer, stage 2, exposed dermis, 2.5 x 1.5 x 0.5 cm. 4. Right posterior heel wound, 5 x 4.5 x 2 cm with undermining at 12 o'clock for 2 cm. This is a stage 4 wound with exposed tendon and bone. 5. Right posterior buttock wound, 2.5 x 1.5 x 1 cm, stage 3, exposed adipose tissue. 6. Left posterior buttock wound, 2.0 x 1.0 x 0.5 cm, stage 3, exposed adipose tissue. PROCEDURE NOTE IN DETAIL: After obtaining informed consent, patient was taken to the operating room. She was anesthetized uneventfully in supine position using laryngeal mask airway. Timeout was called. She was already started on intravenous antibiotics on the floor. Preoperative photographs were taken. Both legs were widely cleaned, prepped, and draped from the knee down to the toes. First, attention was turned to the wound on the left lateral foot. Tangential excision of the wounds was carried out using 15 scalpel blade and pickup. The necrotic tissue was excised. Taffy Puller sample was taken from the left anterior lateral foot wound for culture and sensitivities. Necrotic tissue was obtained for pathology. The right posterior heel wound was again debrided. This wound was thoroughly lavaged with 3 liters of normal saline using 800 mg of gentamicin solution. All the necrotic, foul-smelling tissue was excised. Towards completion, the foul odor had cleared. This wound was packed open with Betadine-soaked gauze reinforced with 4 x 4 gauze, Kerlix bandage, Coban, and Theodore bandages, respectively. Similar dressing was applied to the left foot as well. The gloves were changed. The patient was carefully repositioned in left lateral decubitus position. The sacral and buttock areas were widely cleaned, prepped, and draped in the standard fashion. I had once again rescrubbed, prepped, and gowned before doing this part of the debridement. Using tooth pickup and 15 scalpel blade, tangential excision of the necrotic tissue was carried out. Hemostasis of the right posterior buttock wound was obtained with electrocoagulation with Bovie. Dressings consisted of Xeroform gauze, 4 x 4 gauze, and absorbent Tegaderm dressing. Overall, the procedure was well tolerated. She recovered from anesthesia uneventfully and was taken to RR in stable, satisfactory condition. Postoperatively, I went to the med/surg floor and informed the nursing staff of the patient's status and give postoperative wound care instructions. VD:vesna Job ID: [id number] Doc ID: [id number] MD KENY Woodson
[2020-10-25] MEDS: SENNOSIDES/DOCUSATE SODIUM 1 TAB TABLET PO SCH (20:53)
[2020-10-25] MEDS: ACETAMINOPHEN 650 MG/65 ML BAG IV PRN (22:24)
[2020-10-26] MEDS: 0.9 % SODIUM CHLORIDE 1,000 ML IV SCH ×2 (05:02→20:50)
[2020-10-26] MEDS: 0.9 % SODIUM CHLORIDE 10 ML SYRINGE IV SCH ×5 (05:36→20:59)
[2020-10-26 06:46] LABS: Basophils # (Auto) 0.02 K/mcL (0.00-0.20); Basophils % (Auto) 0.2 % (0.0-2.0); Eosinophils # (Auto) 0.01 K/mcL (0.00-0.70); Eosinophils % (Auto) 0.1 % (0.0-7.0); Hematocrit 33.3 % (36.0-48.0); Hemoglobin 10.2 g/dL (12.0-15.0); Mean Cell Volume 84.3 fL (80.0-100.0); Mean Corpuscular HGB Conc 30.6 g/dL (31.0-36.0); Mean Platelet Volume 9.5 fL (7.4-10.4); Monocytes # (Auto) 0.76 K/mcL (0.10-0.90); Monocytes % (Auto) 6.6 % (1.0-12.0); Neutrophils % (Auto) 80.1 % (38.0-78.0); Platelet Count 385 K/mcL (140-440); RBC 3.95 M/mcL (4.00-5.20); Red Cell Distribution Width 13.9 % (11.5-14.5); WBC 11.5 K/mcL (4.5-11.0)
[2020-10-26] MEDS: ACETAMINOPHEN 650 MG/65 ML BAG IV PRN ×2 (07:00→18:24)
[2020-10-26 07:18] LABS: ALT/SGPT 28 U/L (<40); AST/SGOT 18 U/L (<32); Albumin 2.5 gm/dL (3.2-5.2); Albumin/Globulin Ratio 0.8 (1.0-2.3); Alkaline Phosphatase 71 U/L (39-117); Bilirubin,Direct < 0.2 mg/dL (<0.3); Bilirubin,Total 0.3 mg/dL (0.1-1.0); Blood Urea Nitrogen 13 mg/dL (8-23); Calcium 8.5 mg/dL (8.6-10.4); Carbon Dioxide 20 mmol/L (22-30); Chloride 107 mmol/L (96-108); Globulin 3.1 gm/dL (2.2-3.7); Glomerular Filtration Rate 65; Glucose 124 mg/dL (70-105); Lactate Dehydrogenase 197 U/L (135-225); Phosphorous 3.2 mg/dL (2.5-4.5); Triglycerides 85 mg/dL (<150); Uric Acid 4.9 mg/dL (2.5-8.0)
[2020-10-26] MEDS: cefTRIAXone 2 GM in DEXTROSE 5% IN WATER 50 ML IV SCH (08:37)
[2020-10-26] MEDS: MULTIVIT,THER IRON,CA,FA & MIN 1 TABLET PO SCH (08:40)
[2020-10-26] MEDS: CALCIUM (OYSTER SHELL) 500 MG TABLET PO SCH (08:40)
[2020-10-26] MEDS: HEPARIN 5,000 UNIT/ML VIAL SQ SCH ×2 (08:40→20:51)
[2020-10-26] MEDS: DOCUSATE SODIUM 100 MG CAPSULE PO SCH ×2 (08:40→20:55)
[2020-10-26] MEDS: VANCOMYCIN 750 MG in 0.9 % SODIUM CHLORIDE 250 ML IV SCH (09:47)
--- NOTE | 2020-10-26 12:46 | Internal Med Progress Note ---
SUBJECTIVE Subjective Patient information: Note initiated : 10/26/20 at 12:46 pm Service Date, if different from initiated Date: [] Patient: Yelitza Knight a 89 y/o F admitted on 10/23/20 for foot wounds. Chief Complaint: [] Interval history: Ms. Knight is a 89 year old F with a history of advanced dementia who was brought to the ER by her son Adam due to worsening healing decubitus wounds. Patient is mostly bedridden with profound self-care deficit requiring assistance for ADLs from her family. She was admitted in June with UTI and mental status change and was discharged home on family's insistence. Daughter Elis and son Adam who shares POA requested home health services. Over the last 3 months since discharge patient's wound has been worsening with increasing in size and foul-smelling purulent discharge. Family expresses inability to provide care of her anymore. During today's evaluation CT revealed osteomyelitis along with extensive gangrenous changes and tissue necrosis at decubitus and heel ulcerations. White count of 16,000. Cultures were drawn and wound care/podiatry was consulted. Hospital service was consulted for admission At the time of my evaluation patient is pleasantly demented, occasionally will smile. Denies pain, unable to verbalize much. Most of the history was obtained from son Adam who was at bedside. 10/24-patient doing well. Ongoing evaluation by wound care. Continue antibiotic coverage. Mental status at baseline. Wound care request family conference in a.m. for goals of care/surgical intervention. Case management coordinating SNF transfer on discharge. 10/25-patient doing well. No overnight events. No concerns per staff. debridement today by Dr. Leary. mental status remains at baseline. Currently n.p.o. Labs and hemodynamics stable. On nutrition support 10/26-patient seen in room. Resting comfortably. Remains nonverbal. No overnight events or concerns per staff. White count 11.5. Left lower lobe atelectasis. Early CHF findings. Continue aggressive CPT. On antibiotic coverage Constitutional Vitals: Vital Signs Temp Pulse Resp BP Pulse Ox 97.9 F 60 16 139/58 97 10/26/20 11:42 10/26/20 11:42 10/26/20 11:42 10/26/20 11:42 10/26/20 11:42 Period Temp Pulse Resp BP Sys/Martel Pulse Ox Last 24 Hr 97.2 F-98.9 F 59-99 12-20 139-187/47-85 92-100 Intake and Output 10/25/20 10/26/20 10/26/20 21:59 05:59 13:59 Intake Total 817 1184 300 Output Total 250 200 Balance 567 984 300 Weight 53.615 kg Resting comfortably Nonlabored breathing Wounds covered in dressing Intake & Output: Intake & Output 10/25/20 10/26/20 10/26/20 21:59 05:59 13:59 Intake Total 817 1184 300 Output Total 250 200 Balance 567 984 300 Weight 53.615 kg Intake: Nourishment/Supplement quantity 120 (ml) IV 647 1064 300 Sodium Chloride 0.9% 1,000 ml @ 647 999 75 mls/hr IV .[id number] [facility] Rx#: [id number] Vancomycin 750 mg In Sodium 250 Chloride 0.9% 250 ml @ 250 mls/ hr IV Q24H [facility] Rx#:[id number] Rocephin 2 gm In Dextrose 5% in 50 Water 50 ml @ 100 mls/hr IV DAILY [facility] Rx#:[id number] Oral 120 IV - Manual Only 50 Output: Urine Catheter Amount 250 200 Other: Meal Apple Juice Percent of Meal Consumed 100% Feeding Ability Total Assistance Total Assistance Nourishment/Supplement name magic cup Urine Appearance Clear Clear Uretheral (Sosa) Clear Clear Urine Color Dark Yellow Dark Yellow Uretheral (Sosa) Bright Yellow Light [place] OBJ DATA Labs CBC & Chem 7: 10/26/20 05:18 10/26/20 05:18 Labs: Abnormal Lab Results 10/26/20 10/26/20 10/25/20 05:18 05:18 05:16 WBC 11.5 H RBC 3.95 L Hgb 10.2 L Hct 33.3 L MCH 25.8 L MCHC 30.6 L MPV Neut % (Auto) 80.1 H Lymph % (Auto) 13.0 L [place] # (Auto) Seg Neutrophils % Lymphocytes % Absolute Neutrophils 9.21 H Carbon Dioxide 20 L 19 L Glucose 124 H Calcium 8.5 L AST ALT C-Reactive Protein Total Protein 5.6 L 5.4 L Albumin 2.5 L 2.4 L Albumin/Globulin Ratio 0.8 L 0.8 L 10/25/20 10/24/20 10/24/20 05:16 05:21 05:21 WBC 11.5 H RBC Hgb 10.4 L 11.2 L Hct 34.0 L 35.5 L MCH 25.7 L 25.9 L MCHC 30.6 L MPV Neut % (Auto) Lymph % (Auto) 14.6 L [place] # (Auto) 0.97 H 0.98 H Seg Neutrophils % Lymphocytes % Absolute Neutrophils 8.65 H Carbon Dioxide Glucose 113 H Calcium AST ALT 43 H C-Reactive Protein Total Protein 5.8 L Albumin 2.7 L Albumin/Globulin Ratio 0.9 L 10/23/20 10/23/20 12:10 12:10 WBC 15.2 H RBC Hgb Hct MCH MCHC MPV 10.5 H Neut % (Auto) Lymph % (Auto) [place] # (Auto) Seg Neutrophils % 84 H Lymphocytes % 7 L Absolute Neutrophils Carbon Dioxide 21 L Glucose 145 H Calcium AST 56 H ALT 47 H C-Reactive Protein 8.90 H Total Protein Albumin 3.0 L Albumin/Globulin Ratio 0.9 L Meds: Medications Acetaminophen (Tylenol) 650 mg PO Q4-6HP PRN; Protocol PRN Reason: Per Pain Protocol/Fever > 101 Hydrocodone Bitart/Acetaminophen ([place] 5/325mg) 0.5 tab PO Q6HP PRN PRN Reason: Per Pain Protocol Bisacodyl (Dulcolax) 10 mg [place] Q2-3DAYS PRN PRN Reason: Constipation Calcium Carbonate/Glycine (Oscal) 1,000 mg PO DAILY [facility] Last Admin: 10/26/20 08:40 Dose: 1,000 mg Documented by: Docusate Sodium (Colace) 100 mg PO BID [facility] Last Admin: 10/26/20 08:40 Dose: 100 mg Documented by: Heparin Sodium (Porcine) (Heparin) 5,000 unit SQ Q12 [facility] Last Admin: 10/26/20 08:40 Dose: 5,000 unit Documented by: Heparin Sodium (Porcine) (Heparin 10 Units/Ml Flush) 2 ml IV Q12 [facility] Last Admin: 10/26/20 08:40 Dose: Not Given Documented by: Ceftriaxone Sodium 2 gm/ (Dextrose) 50 mls @ 100 mls/hr IV DAILY [facility]; Protocol Last Infusion: 10/26/20 09:10 Dose: Infused Documented by: Potassium Chloride 40 meq/ (Dextrose) 520 mls @ 130 mls/hr IV UD PRN PRN Reason: K+ = or < 3.5 Acetaminophen (Ofirmev) 650 mg in 65 mls @ 130 mls/hr IV Q6HP PRN; Protocol PRN Reason: Per Pain Protocol/Fever > 101 Last Admin: 10/26/20 07:00 Dose: 130 mls/hr Documented by: Magnesium Sulfate (Magnesium Sulfate) 2 gm in 50 mls @ 50 mls/hr IV UD PRN PRN Reason: MG = or < 1.7 Vancomycin HCl 750 mg/ Sodium (Chloride) 250 mls @ 250 mls/hr IV Q24H [facility] Last Infusion: 10/26/20 10:55 Dose: Infused Documented by: Sodium Chloride (Sodium Chloride 0.9%) 1,000 mls @ 75 mls/hr IV .[id number] [facility] Last Admin: 10/26/20 05:02 Dose: 75 mls/hr Documented by: Iron Carb/Multivit/[place]/Folic Acid (Multivitamin W/Minerals) 1 tab PO DAILY [facility] Last Admin: 10/26/20 08:40 Dose: 1 tab Documented by: Melatonin (Melatonin 3mg Tablet) 3 mg PO HSP PRN PRN Reason: Insomnia Ondansetron HCl (Zofran Odt) 4 mg SL Q4-6HP PRN; Protocol PRN Reason: Nausea And Vomiting Ondansetron HCl (Zofran) 4 mg IV Q4-6HP PRN; Protocol PRN Reason: Nausea And Vomiting Polyethylene Glycol (Miralax) 17 gm PO DAILYP PRN PRN Reason: Constipation Senna/Docusate Sodium (Senna Plus Tablet) 1 tab PO HS [facility] Last Admin: 10/25/20 20:53 Dose: 1 tab Documented by: Sodium Chloride (Saline Flush) 10 ml IV Q8 [facility] Last Admin: 10/26/20 05:36 Dose: Not Given Documented by: Sodium Chloride (Saline Flush) 10 ml IV Q12 [facility] Last Admin: 10/26/20 08:41 Dose: Not Given Documented by: Tramadol HCl (Ultram) 50 mg PO Q6HP PRN; Protocol PRN Reason: Pain Vancomycin HCl (Vancomycin Per Pharmacy) 1 order IV UD [facility]; Protocol A/P Narrative A/P Narrative: * Right heel/sacral decubiti/left posterior foot necrotizing soft tissue infection /gangrenous changes/infected ulcer. Surgical debridement postop day [address] Patel. Await intraoperative wound culture. * Osteomyelitis right calcaneus-on antibiotic coverage. Wound culture MSSA * Mild CHF-gentle diuresis * Left lower lobe atelectasis-COPD/deep breathing exercises/incentive spirometer use if patient able to * Advanced dementia, at baseline stable * Adult failure to thrive -continue diet per dietitian * Profound self-care deficits. Continue directed therapies * Limited code/no intubation CPR okay * Prophylaxis Heparin Plan * Continue wound care per Dr. Sabillon * Deep breathing exercise/CPT * Gentle diuresis * Dementia care/fall watch * Nutrition support * Discharge planning per case management likely SNF Time Spent With Patient Time: Total time spent is greater than 50% in coordination of care (as documented) at patient's floor/unit and/or counseling patient: QUALITY VTE Deep Vein Thrombosis/Pulmonary Embolism Present on Admission: No
--- NOTE | 2020-10-26 14:36 | Surgical Pathology Report ---
Histology Microscopic Diagnosis Specimen A- SOFT TISSUE, LEFT FOOT WOUND, EXCISION: --- FIBROTIC SOFT TISSUE WITH NECROTIZING ACUTE INFLAMMATION, GRANULATION TISSUE AND BACTERIAL FORMS. --- NO FUNGAL ORGANISMS IDENTIFIED ON PAS STAIN (ADEQUATE TECHNICAL CONTROL). --- NO ATYPIA OR MALIGNANCY IDENTIFIED. Comments Specimens A and B - Correlation with pending microbiologic studies required. Procedural Impression Left foot ulcer; right buttock wound. Gross Description Received in formalin designated left foot wound, are three purple-estes to dusky estes pieces of tissue ranging in size from 1 x 0.3 x 0.3 to 7.3 x 2 x 0.3 cm. The possible margins of each are inked black. Finishing Lab Technician sections submitted in one cassette. Microscopic Diagnosis Specimen B- SOFT TISSUE, RIGHT BUTTOCKS WOUND, EXCISION: --- FIBROTIC SOFT TISSUE WITH NECROTIZING ACUTE INFLAMMATION AND BACTERIAL FORMS. --- NO FUNGAL ORGANISMS IDENTIFIED ON PAS STAIN (ADEQUATE TECHNICAL CONTROL). --- NO ATYPIA OR MALIGNANCY IDENTIFIED. (EBD:sln) Gross Description Received in formalin designated right buttocks wound, is a dusky estes piece of tissue that is 1.7 x 1.5 x 0.3 cm. The possible margin is inked black. Sectioned, entirely submitted - one cassette. (SCB:sln) Electronically Signed Gisele Mcadams MD, FCAP Electronically Signed 10/26/2020 14:35
[2020-10-26] MEDS ORDERED: FUROSEMIDE 20 MG/2 ML VIAL IV ONE (14:41)
--- NOTE | 2020-10-26 14:45 | General Surgery Progress Note ---
SUBJECTIVE Subjective Patient information: Note initiated : 10/26/20 at 2:40 pm Service Date, if different from initiated Date: [] Patient: Yelitza Knight 89 y/o F admitted on 10/23/20 for foot wounds. Chief Complaint: [] Additional PMFSH (Level 3 Only): POD # 1. Patient seen with Ryan RN, In Patient wound care nurse. Patient had an uneventful night. Constitutional Vitals: Vital Signs Temp Pulse Resp BP Pulse Ox 97.9 F 60 16 139/58 97 10/26/20 11:42 10/26/20 11:42 10/26/20 11:42 10/26/20 11:42 10/26/20 11:42 Period Temp Pulse Resp BP Sys/Martel Pulse Ox Last 24 Hr 97.3 F-98.9 F 60-99 15-20 139-187/56-82 92-100 Intake and Output 10/26/20 10/26/20 10/26/20 05:59 13:59 21:59 Intake Total 1184 420 Output Total 200 Balance 984 420 Weight 118 lb 3.2 oz Patient Weight 10/27/20 05:59 Weight 118 lb 3.2 oz Intake & Output: Intake & Output 10/26/20 10/26/20 10/26/20 05:59 13:59 21:59 Intake Total 1184 420 Output Total 200 Balance 984 420 Weight 118 lb 3.2 oz Intake: Nourishment/Supplement quantity 120 (ml) IV 1064 300 Sodium Chloride 0.9% 1,000 ml @ 999 75 mls/hr IV .[id number] [facility] Rx#: [id number] Vancomycin 750 mg In Sodium 250 Chloride 0.9% 250 ml @ 250 mls/ hr IV Q24H [facility] Rx#:[id number] Rocephin 2 gm In Dextrose 5% in 50 Water 50 ml @ 100 mls/hr IV DAILY [facility] Rx#:[id number] Oral 120 Output: Urine Catheter Amount 200 Other: Meal Apple Juice Lunch Percent of Meal Consumed 100% 25% Feeding Ability Total Assistance Nourishment/Supplement name ensure Urine Appearance Clear Uretheral (Sosa) Clear Urine Color Dark Yellow Uretheral (Sosa) Light Ivory Stool Size Large Stool Color Brown Stool Consistency Soft Liquid Asha Loose # Bowel Movements 1 # of times incontinent of 1 Bowels Exam: AVSS. No changes in SHILPA. Dressings both feet are CDI Sacral dressing changed. Labs reviewed. A/P Narrative A/P Narrative: Assessment: Satisfactory post operative progress. Patient needs Physical Therapy in bed. ROM joints EXCEPT feet and ankle for deconditioning. Spoke with Dr. Adarsh Bhakta, Infectious Diseases. Recommendations about antibiotic management. Plan: For primary change of dressings tomorrow. Patient will NEED placement in SNF or Rehab after discharge. Time Spent With Patient Time: Total time spent is greater than 50% in coordination of care (as doc umented) at patient's floor/unit and/or counseling patient: Total time spent with greater than 50% in coordination of care (as documented) at patient's floor/unit and/or counseling patient:: 25 - 35 minutes
--- NOTE | 2020-10-26 18:09 | Infectious Disease Consult ---
HPI Data of Consult Primary Care Provider: Devon White Consult Narrative cc:: CC: Bhaskarana Crystal is an 89-year-old woman with dementia. She was admitted in the hospital on October 23. I am not able to obtain history from her. She has multiple photograph wounds placed in the chart. The most significant wound involves the right heel. A CT scan was completed of the right foot on October 23 that showed a 2.1 x 1.1 cm lucency in the right calcaneus consistent with osteomyelitis. Dr. Burton completed wound debridement yesterday and presently postop day 1. Tissue culture sent. A right foot culture grew MSSA on October 25. A left foot culture on October 26 has grown staph aureus sensitivities pending. Patient is currently receiving vancomycin 750 mg once daily and Rocephin 2 g IV once daily. MRSA screen was negative. Her admit white count was 15.2 on October 23 with a sed rate of 18. She also has several decubitus ulcers as well. A left PICC line has been placed. Dr. Burton asked for consultation to assist with antibiotic recommendations and continued outpatient follow-up when she is discharged to care home facility. Review of Systems ROS unobtainable: due to mental status PFSH PFSH All Active Problems (Updated 10/26/20 @ 14:40 by Bhaskar Agrawal MD) Atelectasis of left lung (Acute) Osteomyelitis of foot (Acute) Decubitus ulcer, stage 4 with infection (Acute) Dementia (Acute) Debilitated patient (Acute) Pneumonia (Acute) Dementia (Acute) Acute UTI (Acute) Nausea & vomiting (Acute) Cough (Acute) Fatigue (Acute) Altered mental status (Acute) Generalized weakness (Acute) Cellulitis of right lower leg (Acute) Sinus pause (Acute) Acute alteration in mental status (Acute) Toe pain (Acute) Acute kidney injury (Acute) SIRS (systemic inflammatory response syndrome) (Acute) Fall (Acute) UTI (urinary tract infection) (Acute) Cellulitis (Acute) Hematuria (Acute) Anal fissure (Acute) Rectal prolapse (Acute) Hematochezia (Acute) Renal artery stenosis, united [place], bilateral (Acute) Dilated bile duct (Acute) Diverticulosis (Acute) Varices of other sites (Acute) Diverticulitis (Chronic) Osteoporosis (Chronic) Dementia (Chronic) Stroke (Chronic) Primary progressive aphasia (Chronic) Osteoarthrosis (Chronic) History of intravascular stent placement (Chronic) Stress incontinence, female (Chronic) Peripheral vascular disease (Chronic) Lacunar infarction (Chronic) Hypertension, essential (Chronic) Hyperlipemia (Chronic) Heart murmur (Chronic) Esophageal reflux (Chronic) Atherosclerosis (Chronic) Aortic stenosis (Chronic) Medical History Accidental overdose (Resolved) Aortic stenosis (Chronic) 12/30/2014 - Dr. Humphreys Atherosclerosis (Chronic) of extremities Back Pain (Resolved) Cough (Acute) Deep venous thrombosis (Resolved) Degenerative joint disease (Resolved) Knees Dementia (Chronic) Dermatitis (Resolved) Stasis Dermatitis Discitis of lumbar region (Resolved) Diverticulitis (Chronic) Diverticulitis (Resolved) Esophageal reflux (Chronic) Fatigue (Acute) Heart murmur (Chronic) Suspect mitral origin 12/30/2014 - Dr. Humphreys Hyperlipemia (Chronic) Hypertension, essential (Chronic) Lacunar infarction (Chronic) Muscle spasm of right shoulder (Resolved) Nontraumatic rupture of Achilles tendon (Resolved) Peripheral vascular disease (Chronic) Primary progressive aphasia (Chronic) Stress incontinence, female (Chronic) Stroke (Chronic) Subdural hematoma (Resolved) Thrombosis/embolism, venous (Resolved) Urgency of urination (Resolved) Vaginal vault prolapse after hysterectomy (Resolved 03/16/15) Intermittent Surgical History History of discectomy (Resolved) Lumbar History of hernia surgery (Resolved 05/06/14) Ventral History of hysterectomy (Resolved) 1971 History of hysterectomy (Acute) History of intravascular stent placement (Chronic) Peripheral Vascular Disease -Dr Romo History of knee replacement (Resolved) Left History of knee replacement (Resolved) Right History of knee replacement (Acute) History of oophorectomy (Resolved) 1971 With Hysterectomy Status post tendon repair (Resolved) Family History Unknown Cardiac disease Essential hypertension Malignant neoplasm Social History education level: college occupational status: retired 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 smoking status: Former smoker alcohol intake frequency: does not drink substance use type: does not use MEDS/ALLERGIES Home Medications and Allergies Home Medications Medication Instructions Recorded Confirmed Type acetaminophen [Children's 640 mg PO QID PRN 07/03/20 10/23/20 History Acetaminophen] calcium carbonate [Calcium 500] 1,250 mg PO DAILY 10/23/20 10/23/20 History multivit with min-folic acid 0.4 mg PO DAILY 10/23/20 10/23/20 History [Adult One Daily Multivitamin] Allergies Allergy/AdvReac Type Severity Reaction Status Date / Time Thiazides Allergy Mild ELEVATED Verified 10/23/20 18:54 WBC'S Erythromycin Base Allergy Unknown UNKNOWN Verified 10/23/20 18:54 Sulfa (Sulfonamide Allergy Unknown UNKNOWN Verified 10/23/20 18:54 Antibiotics) Physical Examination Vital Signs Vital signs: Temp Pulse Resp BP Pulse Ox 97.6 F 61 16 130/64 95 10/26/20 15:35 10/26/20 15:35 10/26/20 15:35 10/26/20 15:35 10/26/20 15:35 Additional Exam Additional exam: General: No acute distress. Occupational Therapy present attempting to feed her dinner. Unsuccessful. She is awake. Mumbling unintelligible speech. She does not respond to physical commands. HEENT: She does not open mouth to command. Anicteric sclera. Eyes open. Lungs are clear bilaterally. Heart: Regular rate and rhythm with 3/6 systolic murmur. Abdomen: Soft nontender. Extremities: Bilateral heel protection with Theodore wraps. Feet are dressed. I was able to see photos of wounds provided by Dr. Sabillon. Left PICC line in place. Skin no rash. Results Laboratory Findings CBC and BMP: 10/26/20 05:18 10/26/20 05:18 Abnormal lab findings: Abnormal Labs 10/23/20 10/23/20 10/24/20 12:10 12:10 05:21 WBC 15.2 H 11.5 H RBC Hgb 11.2 L Hct 35.5 L MCH 25.9 L MCHC MPV 10.5 H Neut % (Auto) Lymph % (Auto) 14.6 L [place] # (Auto) 0.98 H Seg Neutrophils % 84 H Lymphocytes % 7 L Absolute Neutrophils 8.65 H Carbon Dioxide 21 L Glucose 145 H Calcium AST 56 H ALT 47 H C-Reactive Protein 8.90 H Total Protein Albumin 3.0 L Albumin/Globulin Ratio 0.9 L 10/24/20 10/25/20 10/25/20 05:21 05:16 05:16 WBC RBC Hgb 10.4 L Hct 34.0 L MCH 25.7 L MCHC 30.6 L MPV Neut % (Auto) Lymph % (Auto) [place] # (Auto) 0.97 H Seg Neutrophils % Lymphocytes % Absolute Neutrophils Carbon Dioxide 19 L Glucose 113 H Calcium AST ALT 43 H C-Reactive Protein Total Protein 5.8 L 5.4 L Albumin 2.7 L 2.4 L Albumin/Globulin Ratio 0.9 L 0.8 L 10/26/20 10/26/20 05:18 05:18 WBC 11.5 H RBC 3.95 L Hgb 10.2 L Hct 33.3 L MCH 25.8 L MCHC 30.6 L MPV Neut % (Auto) 80.1 H Lymph % (Auto) 13.0 L [place] # (Auto) Seg Neutrophils % Lymphocytes % Absolute Neutrophils 9.21 H Carbon Dioxide 20 L Glucose 124 H Calcium 8.5 L AST ALT C-Reactive Protein Total Protein 5.6 L Albumin 2.5 L Albumin/Globulin Ratio 0.8 L Microbiology: Microbiology 10/25/20 13:12 Foot - Left Gram Stain - Preliminary 10/25/20 13:12 Foot - Left Anaerobic Culture - Preliminary 10/25/20 13:12 Foot - Left Gram Stain - Preliminary 10/25/20 13:12 Foot - Left Wound Culture - Preliminary Staphylococcus aureus 10/23/20 15:45 Blood Blood Culture - Preliminary 10/23/20 13:17 Blood Blood Culture - Preliminary 10/23/20 12:40 Foot - Left Gram Stain - Final 10/23/20 12:40 Foot - Left Wound Culture - Final Staphylococcus aureus Staphylococcus aureus#2 10/25/20 12:00 Nose MRSA (PCR) - Final 10/23/20 12:40 Foot - Right Gram Stain - Final 10/23/20 12:40 Foot - Right Wound Culture - Final Staphylococcus aureus A/P Assessment and plan (1) Osteomyelitis of foot: Status: Acute (2) Decubitus ulcer, stage 4 with infection: Status: Acute (3) Dementia: Status: Acute Narrative A/P Narrative: Maarh is an 89-year-old woman with multiple medical problems. Most serious infection involves her right calcaneal osteomyelitis. She is postop day #1 debridement of the right heel. She also had a necrotic eschar over the left lateral foot as well as infected sacral decubitus ulcers. To date, a MSSA has grown from the right foot culture. Staph aureus has been cultured from the left foot and sensitivities pending. Patient is currently on vancomycin and Rocephin. She has a left PICC line in place to receive 6 weeks of IV antibiotics. She may require oral therapy to follow depending on the appearance of the right heel. It will be important to follow-up on final culture data. It may be reasonable if cultures permit to use Unasyn 1.5 g IV every 6 hours. I would be happy to see her in follow-up in clinic or by [employer] in 2 weeks. I would recommend weekly CBC CMP sed rate and CRP for the duration of her IV therapy. Please contact me for final culture results and I can help guide antibiotic therapy if something other than Unasyn does not cover the culture results. Thank you very much for allowing me to be involved in Marah's consultative care. Time Spent With Patient Time: Total time spent is greater than 50% in coordination of care (as documented) at patient's floor/unit and/or counseling patient:
[2020-10-26] MEDS: SENNOSIDES/DOCUSATE SODIUM 1 TAB TABLET PO SCH (20:53)
[2020-10-27] MEDS: 0.9 % SODIUM CHLORIDE 10 ML SYRINGE IV SCH ×5 (05:27→22:30)
[2020-10-27] MEDS: 0.9 % SODIUM CHLORIDE 1,000 ML IV SCH (06:25)
[2020-10-27 06:35] LABS: Basophils # (Auto) 0.06 K/mcL (0.00-0.20); Basophils % (Auto) 0.6 % (0.0-2.0); Eosinophils # (Auto) 0.17 K/mcL (0.00-0.70); Eosinophils % (Auto) 1.6 % (0.0-7.0); Hematocrit 31.7 % (36.0-48.0); Hemoglobin 9.9 g/dL (12.0-15.0); Lymphocytes # (Auto) 2.02 K/mcL (1.50-4.80); Lymphocytes % (Auto) 19.2 % (15.0-49.0); Mean Cell Volume 82.1 fL (80.0-100.0); Mean Corpuscular HGB Conc 31.2 g/dL (31.0-36.0); Mean Platelet Volume 9.5 fL (7.4-10.4); Monocytes # (Auto) 0.78 K/mcL (0.10-0.90); Monocytes % (Auto) 7.4 % (1.0-12.0); Neutrophils % (Auto) 71.2 % (38.0-78.0); Platelet Count 391 K/mcL (140-440); RBC 3.86 M/mcL (4.00-5.20); Red Cell Distribution Width 14.3 % (11.5-14.5); WBC 10.5 K/mcL (4.5-11.0)
[2020-10-27 07:17] LABS: ALT/SGPT 24 U/L (<40); AST/SGOT 18 U/L (<32); Albumin 2.4 gm/dL (3.2-5.2); Albumin/Globulin Ratio 0.8 (1.0-2.3); Alkaline Phosphatase 64 U/L (39-117); Bilirubin,Direct < 0.2 mg/dL (<0.3); Bilirubin,Total 0.2 mg/dL (0.1-1.0); Blood Urea Nitrogen 17 mg/dL (8-23); Calcium 8.6 mg/dL (8.6-10.4); Carbon Dioxide 21 mmol/L (22-30); Chloride 110 mmol/L (96-108); Globulin 2.9 gm/dL (2.2-3.7); Glomerular Filtration Rate 76; Glucose 106 mg/dL (70-105); Lactate Dehydrogenase 185 U/L (135-225); Phosphorous 2.3 mg/dL (2.5-4.5); Triglycerides 101 mg/dL (<150); Uric Acid 4.6 mg/dL (2.5-8.0)
[2020-10-27] MEDS: HEPARIN 5,000 UNIT/ML VIAL SQ SCH ×2 (08:21→22:02)
[2020-10-27] MEDS: DOCUSATE SODIUM 100 MG CAPSULE PO SCH ×2 (08:21→22:03)
[2020-10-27] MEDS: CALCIUM (OYSTER SHELL) 500 MG TABLET PO SCH (08:22)
[2020-10-27] MEDS: MULTIVIT,THER IRON,CA,FA & MIN 1 TABLET PO SCH (08:22)
[2020-10-27] MEDS: cefTRIAXone 2 GM in DEXTROSE 5% IN WATER 50 ML IV SCH (08:26)
[2020-10-27] MEDS: VANCOMYCIN 750 MG in 0.9 % SODIUM CHLORIDE 250 ML IV SCH (09:48)
[2020-10-27] MEDS ORDERED: GENTAMICIN SULFATE 40 MG, CLINDAMYCIN 300 MG, BACITRACIN 25,000 UNIT in SODIUM CHLORIDE... IRR SCH (11:00)
--- NOTE | 2020-10-27 16:18 | General Surgery Progress Note ---
SUBJECTIVE Subjective Patient information: Note initiated : 10/27/20 at 4:10 pm Service Date, if different from initiated Date: [] Patient : Yelitza Knight 89 y/o F admitted on 10/23/20 for foot wounds. Chief Complaint: [I saw patient on Med Surg floor today with nursing staff and changed dressings. ] Constitutional Vitals: Vital Signs Temp Pulse Resp BP Pulse Ox 98.9 F 61 18 158/77 91 10/27/20 16:00 10/27/20 16:00 10/27/20 16:00 10/27/20 16:00 10/27/20 16:00 Period Temp Pulse Resp BP Sys/Martel Pulse Ox Last 24 Hr 97.7 F-98.9 F 60-61 16-24 134-189/53-77 91-95 Intake and Output 10/27/20 10/27/20 10/27/20 05:59 13:59 21:59 Intake Total 0 1640 Output Total 500 Balance -500 1640 Intake & Output: Intake & Output 10/27/20 10/27/20 10/27/20 05:59 13:59 21:59 Intake Total 0 1640 Output Total 500 Balance -500 1640 Intake: IV 1300 Sodium Chloride 0.9% 1,000 ml @ 1000 75 mls/hr IV .[id number] [facility] Rx#: [id number] Vancomycin 750 mg In Sodium 250 Chloride 0.9% 250 ml @ 250 mls/ hr IV Q24H [facility] Rx#:[id number] Rocephin 2 gm In Dextrose 5% in 50 Water 50 ml @ 100 mls/hr IV DAILY [facility] Rx#:[id number] Oral 0 340 Output: Urine Catheter Amount 500 Other: Meal Lunch Percent of Meal Consumed 25% Feeding Ability Total Assistance Urine Appearance Clear Clear Uretheral (Sosa) Clear Urine Color Bright Yellow Bright Yellow Uretheral (Sosa) Bright Yellow Patient had an uneventful night. More alert and responsive. Interacts well with nursing staff AVSS . No changes SHILPA. L/E: Primary dressings taken down. Wound surfaces are pink and granulating. NO odor. Labs reviewed. Appreciate ID note Dr. Bhakta. Will start local wound care for heel wounds with GCB solution. A/P Narrative A/P Narrative: Assessment: Satisfactory progress from wound care and surgery point of view. Needs placement at a Rehab facility. Plan: See wound care and Physical Therapy orders ( In bed Physical Therapy ) Following patient with Hospitalist Physician. Time Spent With Patient Time: Total time spent is greater than 50% in coordination of care (as documented) at patient's floor/unit and/or counseling patient: Total time spent with greater than 50% in coordination of care (as documented) at patient's floor/unit and/or counseling patient:: 25 - 35 minutes
[2020-10-27] MEDS: ACETAMINOPHEN 650 MG/65 ML BAG IV PRN (19:47)
[2020-10-27] MEDS: SENNOSIDES/DOCUSATE SODIUM 1 TAB TABLET PO SCH (22:03)
[2020-10-27] MEDS: GENTAMICIN SULFATE 40 MG, CLINDAMYCIN 300 MG, BACITRACIN 25,000 UNIT in SODIUM CHLORIDE... IRR SCH (22:04)
[2020-10-28] MEDS: 0.9 % SODIUM CHLORIDE 1,000 ML IV SCH ×3 (04:11→20:37)
[2020-10-28 06:25] LABS: Basophils # (Auto) 0.06 K/mcL (0.00-0.20); Basophils % (Auto) 0.5 % (0.0-2.0); Eosinophils # (Auto) 0.27 K/mcL (0.00-0.70); Eosinophils % (Auto) 2.1 % (0.0-7.0); Hematocrit 34.9 % (36.0-48.0); Hemoglobin 10.7 g/dL (12.0-15.0); Lymphocytes # (Auto) 2.17 K/mcL (1.50-4.80); Lymphocytes % (Auto) 17.2 % (15.0-49.0); Mean Cell Volume 84.1 fL (80.0-100.0); Mean Corpuscular HGB Conc 30.7 g/dL (31.0-36.0); Mean Platelet Volume 9.2 fL (7.4-10.4); Monocytes # (Auto) 0.95 K/mcL (0.10-0.90); Monocytes % (Auto) 7.5 % (1.0-12.0); Neutrophils % (Auto) 72.7 % (38.0-78.0); Platelet Count 390 K/mcL (140-440); RBC 4.15 M/mcL (4.00-5.20); Red Cell Distribution Width 14.5 % (11.5-14.5); WBC 12.6 K/mcL (4.5-11.0)
[2020-10-28] MEDS: 0.9 % SODIUM CHLORIDE 10 ML SYRINGE IV SCH ×5 (06:25→20:17)
[2020-10-28 07:11] LABS: ALT/SGPT 22 U/L (<40); AST/SGOT 22 U/L (<32); Albumin 2.8 gm/dL (3.2-5.2); Alkaline Phosphatase 72 U/L (39-117); Bilirubin,Direct < 0.2 mg/dL (<0.3); Bilirubin,Total 0.3 mg/dL (0.1-1.0); Blood Urea Nitrogen 20 mg/dL (8-23); Calcium 8.5 mg/dL (8.6-10.4); Carbon Dioxide 22 mmol/L (22-30); Chloride 102 mmol/L (96-108); Globulin 2.8 gm/dL (2.2-3.7); Glomerular Filtration Rate 80; Glucose 116 mg/dL (70-105); Lactate Dehydrogenase 235 U/L (135-225); Phosphorous 1.8 mg/dL (2.5-4.5); Triglycerides 122 mg/dL (<150)
--- NOTE | 2020-10-28 09:11 | Internal Med Progress Note ---
SUBJECTIVE Subjective Patient information: Note initiated : 10/27/20 at11:29 am Service Date, if different from initiated Date: [] Patient: Yelitza Knight a 89 y/o F admitted on 10/23/20 for foot wounds. Chief Complaint: [] Interval history: Ms. Knight is a 89 year old F with a history of advanced dementia who was brought to the ER by her son Adam due to worsening healing decubitus wounds. Patient is mostly bedridden with profound self-care deficit requiring assistance for ADLs from her family. She was admitted in June with UTI and mental status change and was discharged home on family's insistence. Daughter Elis and son Aadm who shares POA requested home health services. Over the last 3 months since discharge patient's wound has been worsening with increasing in size and foul-smelling purulent discharge. Family expresses inability to provide care of her anymore. During today's evaluation CT revealed osteomyelitis along with extensive gangrenous changes and tissue necrosis at decubitus and heel ulcerations. White count of 16,000. Cultures were drawn and wound care/podiatry was consulted. Hospital service was consulted for admission At the time of my evaluation patient is pleasantly demented, occasionally will smile. Denies pain, unable to verbalize much. Most of the history was obtained from son Adam who was at bedside. 10/24-patient doing well. Ongoing evaluation by wound care. Continue antibiotic coverage. Mental status at baseline. Wound care request family conference in a.m. for goals of care/surgical intervention. Case management coordinating SNF transfer on discharge. 10/25-patient doing well. No overnight events. No concerns per staff. debridement today by Dr. Leary. mental status remains at baseline. Currently n.p.o. Labs and hemodynamics stable. On nutrition support 10/26-patient seen in room. Resting comfortably. Remains nonverbal. No overnight events or concerns per staff. White count 11.5. Left lower lobe atelectasis. Early CHF findings. Continue aggressive CPT. On antibiotic coverage 10/27-patient continuing on antibiotic coverage. No overnight events. No concerns per staff. Ongoing wound care per Dr. Foy. On nutrition support. Await SNF transfer likely Friday with outpatient antibiotic per ID for osteomyelitis. Midline placed. Constitutional Vitals: Vital Signs Temp Pulse Resp BP Pulse Ox 97.5 F 60 20 169/70 99 10/28/20 06:48 10/28/20 04:00 10/28/20 06:48 10/28/20 06:48 10/28/20 06:48 Period Temp Pulse Resp BP Sys/Martel Pulse Ox Last 24 Hr 97.5 F-99.7 F 60-61 18-24 146-190/60-77 91-99 Intake and Output 10/27/20 10/28/20 10/28/20 21:59 05:59 13:59 Intake Total 65 150 Output Total 425 350 Balance -360 -200 Weight 55.934 kg Nonverbal Opens eyes to verbal commands but does not comprehend Max assist transfers No lymphedema Intake & Output: Intake & Output 10/27/20 10/28/20 10/28/20 21:59 05:59 13:59 Intake Total 65 150 Output Total 425 350 Balance -360 -200 Weight 55.934 kg Intake: IV 65 50 Oral 100 Output: Urine Catheter Amount 425 350 Other: Meal Dinner Percent of Meal Consumed 50% Feeding Ability Total Assistance Urine Appearance Clear Uretheral (Sosa) Clear Urine Color Bright Yellow Dark Yellow Uretheral (Sosa) Bright Yellow Exam: AVSS. No changes in SHILPA. Dressings both feet are CDI Sacral dressing changed. Labs reviewed. OBJ DATA Labs CBC & Chem 7: 10/28/20 05:40 10/28/20 05:40 Labs: Abnormal Lab Results 10/28/20 10/28/20 10/27/20 05:40 05:40 05:44 WBC 12.6 H RBC Hgb 10.7 L Hct 34.9 L MCH 25.8 L MCHC 30.7 L Neut % (Auto) Lymph % (Auto) [place] # (Auto) 0.95 H Absolute Neutrophils 9.18 H Chloride 110 H Carbon Dioxide 21 L Glucose 116 H 106 H Calcium 8.5 L Phosphorus 1.8 L 2.3 L Lactate Dehydrogenase 235 H Total Protein 5.6 L 5.3 L Albumin 2.8 L 2.4 L Albumin/Globulin Ratio 0.8 L 10/27/20 10/26/20 10/26/20 05:44 05:18 05:18 WBC 11.5 H RBC 3.86 L 3.95 L Hgb 9.9 L 10.2 L Hct 31.7 L 33.3 L MCH 25.6 L 25.8 L MCHC 30.6 L Neut % (Auto) 80.1 H Lymph % (Auto) 13.0 L [place] # (Auto) Absolute Neutrophils 9.21 H Chloride Carbon Dioxide 20 L Glucose 124 H Calcium 8.5 L Phosphorus Lactate Dehydrogenase Total Protein 5.6 L Albumin 2.5 L Albumin/Globulin Ratio 0.8 L Meds: Medications Acetaminophen (Tylenol) 650 mg PO Q4-6HP PRN; Protocol PRN Reason: Per Pain Protocol/Fever > 101 Hydrocodone Bitart/Acetaminophen ([place] 5/325mg) 0.5 tab PO Q6HP PRN PRN Reason: Per Pain Protocol Bisacodyl (Dulcolax) 10 mg TN Q2-3DAYS PRN PRN Reason: Constipation Calcium Carbonate/Glycine (Oscal) 1,000 mg PO DAILY [facility] Last Admin: 10/27/20 08:22 Dose: 1,000 mg Documented by: Docusate Sodium (Colace) 100 mg PO BID [facility] Last Admin: 10/27/20 22:03 Dose: 100 mg Documented by: Heparin Sodium (Porcine) (Heparin) 5,000 unit SQ Q12 [facility] Last Admin: 10/27/20 22:02 Dose: 5,000 unit Documented by: Heparin Sodium (Porcine) (Heparin 10 Units/Ml Flush) 2 ml IV Q12 [facility] Last Admin: 10/27/20 22:05 Dose: Not Given Documented by: Ceftriaxone Sodium 2 gm/ (Dextrose) 50 mls @ 100 mls/hr IV DAILY [facility]; Protocol Last Infusion: 10/27/20 08:56 Dose: Infused Documented by: Potassium Chloride 40 meq/ (Dextrose) 520 mls @ 130 mls/hr IV UD PRN PRN Reason: K+ = or < 3.5 Acetaminophen (Ofirmev) 650 mg in 65 mls @ 130 mls/hr IV Q6HP PRN; Protocol PRN Reason: Per Pain Protocol/Fever > 101 Last Infusion: 10/27/20 20:20 Dose: Infused Documented by: Magnesium Sulfate (Magnesium Sulfate) 2 gm in 50 mls @ 50 mls/hr IV UD PRN PRN Reason: MG = or < 1.7 Last Infusion: 10/27/20 23:30 Dose: Infused Documented by: Vancomycin HCl 750 mg/ Sodium (Chloride) 250 mls @ 250 mls/hr IV Q24H [facility] Last Infusion: 10/27/20 10:48 Dose: Infused Documented by: Sodium Chloride (Sodium Chloride 0.9%) 1,000 mls @ 75 mls/hr IV .[id number] [facility] Last Admin: 10/28/20 04:11 Dose: 75 mls/hr Documented by: Gentamicin Sulfate 40 mg/Clindamycin Phosphate 300 mg/Bacitracin 25,000 unit/ Sodium Chloride 503 mls @ 0 mls/hr IRR BID [facility] Last Admin: 10/27/20 22:04 Dose: 20 mls/hr Documented by: Iron Carb/Multivit/Cloth Winding Supervisor/Folic Acid (Multivitamin W/Minerals) 1 tab PO DAILY [facility] Last Admin: 10/27/20 08:22 Dose: 1 tab Documented by: Melatonin (Melatonin 3mg Tablet) 3 mg PO HSP PRN PRN Reason: Insomnia Ondansetron HCl (Zofran Odt) 4 mg SL Q4-6HP PRN; Protocol PRN Reason: Nausea And Vomiting Ondansetron HCl (Zofran) 4 mg IV Q4-6HP PRN; Protocol PRN Reason: Nausea And Vomiting Polyethylene Glycol (Miralax) 17 gm PO DAILYP PRN PRN Reason: Constipation Senna/Docusate Sodium (Senna Plus Tablet) 1 tab PO HS [facility] Last Admin: 10/27/20 22:03 Dose: 1 tab Documented by: Sodium Chloride (Saline Flush) 10 ml IV Q8 [facility] Last Admin: 10/28/20 06:25 Dose: Not Given Documented by: Sodium Chloride (Saline Flush) 10 ml IV Q12 [facility] Last Admin: 10/27/20 22:05 Dose: Not Given Documented by: Tramadol HCl (Ultram) 50 mg PO Q6HP PRN; Protocol PRN Reason: Pain Last Admin: 10/27/20 23:40 Dose: 50 mg Documented by: Vancomycin HCl (Vancomycin Per Pharmacy) 1 order IV UD [facility]; Protocol A/P Assessment and plan (1) Osteomyelitis of foot: Status: Acute (2) Decubitus ulcer, stage 4 with infection: Status: Acute (3) Dementia: Status: Acute Narrative A/P Narrative: * Right heel/sacral decubiti/left posterior foot necrotizing soft tissue infection /infected ulcer. Surgical debridement by wound care Dr. Sabillon 10/26. MSSA on intraoperative culture. ID recommends Unasyn * Osteomyelitis right calcaneus-on vancomycin/Rocephin. ID recommends Unasyn * Mild CHF-continue gentle diuresis * Left lower lobe atelectasis-COPD/deep breathing exercises/IS use as tolerated * Advanced dementia, at baseline stable * Adult failure to thrive -continue diet per dietitian * Profound self-care deficits. Continue directed therapies * Limited code/no intubation CPR okay * Prophylaxis Heparin Plan * Continue wound care per Dr. Sabillon * Continue antibiotics and de-escalate once cultures available * Deep breathing exercise/CPT * Gentle diuresis * Dementia care/fall watch * Nutrition support * Discharge planning per case management likely SNF with outpatient ID follow- up/weekly CRP/CBC Time Spent With Patient Time: Total time spent is greater than 50% in coordination of care (as documented) at patient's floor/unit and/or counseling patient: QUALITY VTE Deep Vein Thrombosis/Pulmonary Embolism Present on Admission: No
--- NOTE | 2020-10-28 09:25 | Internal Med Progress Note ---
SUBJECTIVE Subjective Patient information: Note initiated : 10/28/20 at 9:23 am Service Date, if different from initiated Date: [] Patient: Yelitza Knight a 89 y/o F admitted on 10/23/20 for foot wounds. Chief Complaint: [] Interval history: Ms. Knight is a 89 year old F with a history of advanced dementia who was brought to the ER by her son Adam due to worsening healing decubitus wounds. Patient is mostly bedridden with profound self-care deficit requiring assistance for ADLs from her family. She was admitted in June with UTI and mental status change and was discharged home on family's insistence. Daughter Elis and son Adam who shares POA requested home health services. Over the last 3 months since discharge patient's wound has been worsening with increasing in size and foul-smelling purulent discharge. Family expresses inability to provide care of her anymore. During today's evaluation CT revealed osteomyelitis along with extensive gangrenous changes and tissue necrosis at decubitus and heel ulcerations. White count of 16,000. Cultures were drawn and wound care/podiatry was consulted. Hospital service was consulted for admission At the time of my evaluation patient is pleasantly demented, occasionally will smile. Denies pain, unable to verbalize much. Most of the history was obtained from son Adam who was at bedside. 10/24-patient doing well. Ongoing evaluation by wound care. Continue antibiotic coverage. Mental status at baseline. Wound care request family conference in a.m. for goals of care/surgical intervention. Case management coordinating SNF transfer on discharge. 10/25-patient doing well. No overnight events. No concerns per staff. debridement today by Dr. Leary. mental status remains at baseline. Currently n.p.o. Labs and hemodynamics stable. On nutrition support 10/26-patient seen in room. Resting comfortably. Remains nonverbal. No overnight events or concerns per staff. White count 11.5. Left lower lobe atelectasis. Early CHF findings. Continue aggressive CPT. On antibiotic coverage 10/27-patient continuing on antibiotic coverage. No overnight events. No concerns per staff. Ongoing wound care per Dr. Foy. On nutrition support. Await SNF transfer likely Friday with outpatient antibiotic per ID for osteomyelitis. Midline placed. 10/28-patient doing a lot better. No overnight events. No concerns per staff. Switch antibiotics to Unasyn today. Continue CRP/blood work as directed by ID. Ongoing wound care per Dr. Sabillon. Constitutional Vitals: Vital Signs Temp Pulse Resp BP Pulse Ox 97.5 F 60 20 169/70 96 10/28/20 06:48 10/28/20 04:00 10/28/20 06:48 10/28/20 06:48 10/28/20 09:18 Period Temp Pulse Resp BP Sys/Martel Pulse Ox Last 24 Hr 97.5 F-99.7 F 60-61 18-24 146-190/60-77 91-99 Intake and Output 10/27/20 10/28/20 10/28/20 21:59 05:59 13:59 Intake Total 65 150 Output Total 425 350 Balance -360 -200 Weight 55.934 kg Midline placed Remains nonverbal No anxiety No shortness of breath Intake & Output: Intake & Output 10/27/20 10/28/20 10/28/20 21:59 05:59 13:59 Intake Total 65 150 Output Total 425 350 Balance -360 -200 Weight 55.934 kg Intake: IV 65 50 Oral 100 Output: Urine Catheter Amount 425 350 Other: Meal Dinner Percent of Meal Consumed 50% Feeding Ability Total Assistance Urine Appearance Clear Uretheral (Sosa) Clear Urine Color Bright Yellow Dark Yellow Uretheral (Sosa) Bright Yellow OBJ DATA Labs CBC & Chem 7: 10/28/20 05:40 10/28/20 05:40 Labs: Abnormal Lab Results 10/28/20 10/28/20 10/27/20 05:40 05:40 05:44 WBC 12.6 H RBC Hgb 10.7 L Hct 34.9 L MCH 25.8 L MCHC 30.7 L Neut % (Auto) Lymph % (Auto) [place] # (Auto) 0.95 H Absolute Neutrophils 9.18 H Chloride 110 H Carbon Dioxide 21 L Glucose 116 H 106 H Calcium 8.5 L Phosphorus 1.8 L 2.3 L Lactate Dehydrogenase 235 H Total Protein 5.6 L 5.3 L Albumin 2.8 L 2.4 L Albumin/Globulin Ratio 0.8 L 10/27/20 10/26/20 10/26/20 05:44 05:18 05:18 WBC 11.5 H RBC 3.86 L 3.95 L Hgb 9.9 L 10.2 L Hct 31.7 L 33.3 L MCH 25.6 L 25.8 L MCHC 30.6 L Neut % (Auto) 80.1 H Lymph % (Auto) 13.0 L [place] # (Auto) Absolute Neutrophils 9.21 H Chloride Carbon Dioxide 20 L Glucose 124 H Calcium 8.5 L Phosphorus Lactate Dehydrogenase Total Protein 5.6 L Albumin 2.5 L Albumin/Globulin Ratio 0.8 L Meds: Medications Acetaminophen (Tylenol) 650 mg PO Q4-6HP PRN; Protocol PRN Reason: Per Pain Protocol/Fever > 101 Hydrocodone Bitart/Acetaminophen ([place] 5/325mg) 0.5 tab PO Q6HP PRN PRN Reason: Per Pain Protocol Bisacodyl (Dulcolax) 10 mg HI Q2-3DAYS PRN PRN Reason: Constipation Calcium Carbonate/Glycine (Oscal) 1,000 mg PO DAILY [facility] Last Admin: 10/27/20 08:22 Dose: 1,000 mg Documented by: Docusate Sodium (Colace) 100 mg PO BID [facility] Last Admin: 10/27/20 22:03 Dose: 100 mg Documented by: Heparin Sodium (Porcine) (Heparin) 5,000 unit SQ Q12 [facility] Last Admin: 10/27/20 22:02 Dose: 5,000 unit Documented by: Heparin Sodium (Porcine) (Heparin 10 Units/Ml Flush) 2 ml IV Q12 [facility] Last Admin: 10/27/20 22:05 Dose: Not Given Documented by: Ceftriaxone Sodium 2 gm/ (Dextrose) 50 mls @ 100 mls/hr IV DAILY [facility]; Protocol Last Infusion: 10/27/20 08:56 Dose: Infused Documented by: Potassium Chloride 40 meq/ (Dextrose) 520 mls @ 130 mls/hr IV UD PRN PRN Reason: K+ = or < 3.5 Acetaminophen (Ofirmev) 650 mg in 65 mls @ 130 mls/hr IV Q6HP PRN; Protocol PRN Reason: Per Pain Protocol/Fever > 101 Last Infusion: 10/27/20 20:20 Dose: Infused Documented by: Magnesium Sulfate (Magnesium Sulfate) 2 gm in 50 mls @ 50 mls/hr IV UD PRN PRN Reason: MG = or < 1.7 Last Infusion: 10/27/20 23:30 Dose: Infused Documented by: Vancomycin HCl 750 mg/ Sodium (Chloride) 250 mls @ 250 mls/hr IV Q24H [facility] Last Infusion: 10/27/20 10:48 Dose: Infused Documented by: Sodium Chloride (Sodium Chloride 0.9%) 1,000 mls @ 75 mls/hr IV .[id number] [facility] Last Admin: 10/28/20 04:11 Dose: 75 mls/hr Documented by: Gentamicin Sulfate 40 mg/Clindamycin Phosphate 300 mg/Bacitracin 25,000 unit/ Sodium Chloride 503 mls @ 0 mls/hr IRR BID [facility] Last Admin: 10/27/20 22:04 Dose: 20 mls/hr Documented by: Iron Carb/Multivit/[place]/Folic Acid (Multivitamin W/Minerals) 1 tab PO DAILY [facility] Last Admin: 10/27/20 08:22 Dose: 1 tab Documented by: Melatonin (Melatonin 3mg Tablet) 3 mg PO HSP PRN PRN Reason: Insomnia Ondansetron HCl (Zofran Odt) 4 mg SL Q4-6HP PRN; Protocol PRN Reason: Nausea And Vomiting Ondansetron HCl (Zofran) 4 mg IV Q4-6HP PRN; Protocol PRN Reason: Nausea And Vomiting Polyethylene Glycol (Miralax) 17 gm PO DAILYP PRN PRN Reason: Constipation Senna/Docusate Sodium (Senna Plus Tablet) 1 tab PO HS [facility] Last Admin: 10/27/20 22:03 Dose: 1 tab Documented by: Sodium Chloride (Saline Flush) 10 ml IV Q8 [facility] Last Admin: 10/28/20 06:25 Dose: Not Given Documented by: Sodium Chloride (Saline Flush) 10 ml IV Q12 [facility] Last Admin: 10/27/20 22:05 Dose: Not Given Documented by: Tramadol HCl (Ultram) 50 mg PO Q6HP PRN; Protocol PRN Reason: Pain Last Admin: 10/27/20 23:40 Dose: 50 mg Documented by: Vancomycin HCl (Vancomycin Per Pharmacy) 1 order IV UD [facility]; Protocol A/P Assessment and plan (1) Osteomyelitis of foot: Status: Acute (2) Decubitus ulcer, stage 4 with infection: Status: Acute (3) Dementia: Status: Acute Narrative A/P Narrative: * Right heel/sacral decubiti/left posterior foot necrotizing soft tissue infection /infected ulcer. Surgical debridement by wound care Dr. Sabillon 10/26. MSSA on intraoperative culture. 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 Start Unasyn * Mild CHF- resolved with diuresis * Left lower lobe atelectasis-COPD/deep breathing exercises/IS use as tolerated * Advanced dementia, at baseline stable * Adult failure to thrive -continue dietary interventions per dietitian * Profound self-care deficits. Ongoing PT/OT * Prophylaxis Heparin Plan * Continue wound care per Dr. Sabillon * Start Unasyn * CPT * Dementia care/fall watch * Nutrition support * Discharge planning per case management likely SNF with outpatient ID follow- up/weekly CRP/CBC Time Spent With Patient Time: Total time spent is greater than 50% in coordination of care (as documented) at patient's floor/unit and/or counseling patient: QUALITY VTE Deep Vein Thrombosis/Pulmonary Embolism Present on Admission: No
[2020-10-28] MEDS: NEUTRA PHOS 1 PACKET PO SCH ×2 (09:50→20:16)
[2020-10-28] MEDS: CALCIUM (OYSTER SHELL) 500 MG TABLET PO SCH (10:00)
[2020-10-28] MEDS: MULTIVIT,THER IRON,CA,FA & MIN 1 TABLET PO SCH (10:00)
[2020-10-28] MEDS: DOCUSATE SODIUM 100 MG CAPSULE PO SCH ×2 (10:00→20:16)
[2020-10-28] MEDS: cefTRIAXone 2 GM in DEXTROSE 5% IN WATER 50 ML IV SCH (10:00)
[2020-10-28] MEDS: HEPARIN 5,000 UNIT/ML VIAL SQ SCH ×2 (10:16→20:16)
--- NOTE | 2020-10-28 10:52 | General Surgery Progress Note ---
SUBJECTIVE Subjective Patient information: Note initiated : 10/28/20 at 10:48 am Service Date, if different from initiated Date: [] Patient: Yelitza Knight 89 y/o F admitted on 10/23/20 for foot wounds. Chief Complaint: [] Additional PMFSH (Level 3 Only): Patient seen and progress / wound care dressings reviewed with Leigh SHAW Constitutional Vitals: Vital Signs Temp Pulse Resp BP Pulse Ox 97.5 F 60 20 169/70 96 10/28/20 06:48 10/28/20 04:00 10/28/20 06:48 10/28/20 06:48 10/28/20 09:18 Period Temp Pulse Resp BP Sys/Martel Pulse Ox Last 24 Hr 97.5 F-99.7 F 60-61 18-24 146-190/60-77 91-99 Intake and Output 10/27/20 10/28/20 10/28/20 21:59 05:59 13:59 Intake Total 65 150 Output Total 425 350 Balance -360 -200 Weight 123 lb 5 oz Intake & Output: Intake & Output 10/27/20 10/28/20 10/28/20 21:59 05:59 13:59 Intake Total 65 150 Output Total 425 350 Balance -360 -200 Weight 123 lb 5 oz Intake: IV 65 50 Oral 100 Output: Urine Catheter Amount 425 350 Other: Meal Dinner Percent of Meal Consumed 50% Feeding Ability Total Assistance Urine Appearance Clear Uretheral (Sosa) Clear Urine Color Bright Yellow Dark Yellow Uretheral (Sosa) Bright Yellow Exam: AVSS: No changes SHILPA. Resting comfortably. Wound care ongoing. Labs reviewed. Antibiotics plan noted. AWAITS evaluation by Cm / SW for placement. A/P Narrative A/P Narrative: Assessment: Satisfactory progress. Plan: Continue ongoing care, medications and dressing changes. Will reassess again after w/e for plans about continuation of care. Time Spent With Patient Time: Total time spent is greater than 50% in coordination of care (as documented) at patient's floor/unit and/or counseling patient: Total time spent with greater than 50% in coordination of care (as documented) at patient's floor/unit and/or counseling patient:: 15 - 24 minutes
[2020-10-28] MEDS: VANCOMYCIN 750 MG in 0.9 % SODIUM CHLORIDE 250 ML IV SCH (11:29)
[2020-10-28] MEDS: GENTAMICIN SULFATE 40 MG, CLINDAMYCIN 300 MG, BACITRACIN 25,000 UNIT in SODIUM CHLORIDE... IRR SCH ×2 (11:30→20:32)
[2020-10-28] MEDS: ACETAMINOPHEN 650 MG/65 ML BAG IV PRN (15:03)
[2020-10-28] MEDS: SENNOSIDES/DOCUSATE SODIUM 1 TAB TABLET PO SCH (20:16)
[2020-10-29] MEDS: ACETAMINOPHEN 650 MG/65 ML BAG IV PRN ×2 (03:46→15:37)
[2020-10-29] MEDS: 0.9 % SODIUM CHLORIDE 1,000 ML IV SCH ×3 (04:36→12:19)
[2020-10-29] MEDS: 0.9 % SODIUM CHLORIDE 10 ML SYRINGE IV SCH ×4 (06:03→21:57)
--- NOTE | 2020-10-29 09:47 | Internal Med Progress Note ---
SUBJECTIVE Subjective Patient information: Note initiated : 10/29/20 at 9:44 am Service Date, if different from initiated Date: [] Patient: Yelitza Knight a 89 y/o F admitted on 10/23/20 for foot wounds. Chief Complaint: [] Interval history: Ms. Knight is a 89 year old F with a history of advanced dementia who was brought to the ER by her son Adam due to worsening healing decubitus wounds. Patient is mostly bedridden with profound self-care deficit requiring assistance for ADLs from her family. She was admitted in June with UTI and mental status change and was discharged home on family's insistence. Daughter Elis and son Adam who shares POA requested home health services. Over the last 3 months since discharge patient's wound has been worsening with increasing in size and foul-smelling purulent discharge. Family expresses inability to provide care of her anymore. During today's evaluation CT revealed osteomyelitis along with extensive gangrenous changes and tissue necrosis at decubitus and heel ulcerations. White count of 16,000. Cultures were drawn and wound care/podiatry was consulted. Hospital service was consulted for admission At the time of my evaluation patient is pleasantly demented, occasionally will smile. Denies pain, unable to verbalize much. Most of the history was obtained from son Adam who was at bedside. 10/24-patient doing well. Ongoing evaluation by wound care. Continue antibiotic coverage. Mental status at baseline. Wound care request family conference in a.m. for goals of care/surgical intervention. Case management coordinating SNF transfer on discharge. 10/25-patient doing well. No overnight events. No concerns per staff. debridement today by Dr. Leary. mental status remains at baseline. Currently n.p.o. Labs and hemodynamics stable. On nutrition support 10/26-patient seen in room. Resting comfortably. Remains nonverbal. No overnight events or concerns per staff. White count 11.5. Left lower lobe atelectasis. Early CHF findings. Continue aggressive CPT. On antibiotic coverage 10/27-patient continuing on antibiotic coverage. No overnight events. No concerns per staff. Ongoing wound care per Dr. Foy. On nutrition support. Await SNF transfer likely Friday with outpatient antibiotic per ID for osteomyelitis. Midline placed. 10/28-patient doing a lot better. No overnight events. No concerns per staff. Switch antibiotics to Unasyn today. Continue CRP/blood work as directed by ID. Ongoing wound care per Dr. Sabillon. 10/29-patient doing well. Ongoing wound care. Continue antibiotics. Anticipate discharge on IV Unasyn per ID recommendations. [facility] pharmacy does not carry Unasyn, will continue Rocephin/Vanco until discharge. Stable hemodynamics, no concerns per staff Constitutional Vitals: Vital Signs Temp Pulse Resp BP Pulse Ox 98.7 F 60 20 138/59 90 10/29/20 06:44 10/29/20 06:44 10/29/20 06:44 10/29/20 06:44 10/29/20 06:44 Period Temp Pulse Resp BP Sys/Martel Pulse Ox Last 24 Hr 97.7 F-98.7 F 60-60 16-28 120-189/54-72 90-95 Intake and Output 10/28/20 10/29/20 10/29/20 21:59 05:59 13:59 Intake Total 1305 215 240 Output Total 300 275 Balance 1005 -60 240 Weight 57.289 kg Alert oriented nonlabored breathing No anxiety Nondistended abdomen Intake & Output: Intake & Output 10/28/20 10/29/20 10/29/20 21:59 05:59 13:59 Intake Total 1305 215 240 Output Total 300 275 Balance 1005 -60 240 Weight 57.289 kg Intake: IV 1065 65 Sodium Chloride 0.9% 1,000 ml @ 1000 75 mls/hr IV .[id number] [facility] Rx#: [id number] Oral 240 150 240 Output: Urine Catheter Amount 300 275 Other: Meal Dinner Breakfast Percent of Meal Consumed 25% 25% Feeding Ability Total Assistance Nourishment/Supplement name Ensure, Magic cup (from lunch) Urine Appearance Clear Clear Uretheral (Sosa) Clear Urine Color Bright Yellow Dark Yellow Uretheral (Sosa) Bright Yellow Urine Odor Normal # Voids 1 Exam: AVSS: No changes SHILPA. Resting comfortably. Wound care ongoing. Labs reviewed. Antibiotics plan noted. AWAITS evaluation by Cm / SW for placement. OBJ DATA Labs CBC & Chem 7: 10/28/20 05:40 10/28/20 05:40 Labs: Abnormal Lab Results 10/28/20 10/28/20 10/28/20 05:40 05:40 05:40 WBC 12.6 H RBC Hgb 10.7 L Hct 34.9 L MCH 25.8 L MCHC 30.7 L [place] # (Auto) 0.95 H Absolute Neutrophils 9.18 H Chloride Carbon Dioxide Glucose 116 H Calcium 8.5 L Phosphorus 1.8 L Lactate Dehydrogenase 235 H C-Reactive Protein 2.30 H Total Protein 5.6 L Albumin 2.8 L Albumin/Globulin Ratio 10/27/20 10/27/20 05:44 05:44 WBC RBC 3.86 L Hgb 9.9 L Hct 31.7 L MCH 25.6 L MCHC [place] # (Auto) Absolute Neutrophils Chloride 110 H Carbon Dioxide 21 L Glucose 106 H Calcium Phosphorus 2.3 L Lactate Dehydrogenase C-Reactive Protein Total Protein 5.3 L Albumin 2.4 L Albumin/Globulin Ratio 0.8 L Meds: Medications Acetaminophen (Tylenol) 650 mg PO Q4-6HP PRN; Protocol PRN Reason: Per Pain Protocol/Fever > 101 Last Admin: 10/28/20 20:16 Dose: 650 mg Documented by: Hydrocodone Bitart/Acetaminophen ([place] 5/325mg) 0.5 tab PO Q6HP PRN PRN Reason: Per Pain Protocol Bisacodyl (Dulcolax) 10 mg [place] Q2-3DAYS PRN PRN Reason: Constipation Calcium Carbonate/Glycine (Oscal) 1,000 mg PO DAILY [facility] Last Admin: 10/28/20 10:00 Dose: 1,000 mg Documented by: Docusate Sodium (Colace) 100 mg PO BID [facility] Last Admin: 10/28/20 20:16 Dose: 100 mg Documented by: Heparin Sodium (Porcine) (Heparin) 5,000 unit SQ Q12 [facility] Last Admin: 10/28/20 20:16 Dose: 5,000 unit Documented by: Heparin Sodium (Porcine) (Heparin 10 Units/Ml Flush) 2 ml IV Q12 [facility] Last Admin: 10/29/20 09:43 Dose: Not Given Documented by: Ceftriaxone Sodium 2 gm/ (Dextrose) 50 mls @ 100 mls/hr IV DAILY [facility]; Protocol Last Infusion: 10/28/20 10:30 Dose: Infused Documented by: Potassium Chloride 40 meq/ (Dextrose) 520 mls @ 130 mls/hr IV UD PRN PRN Reason: K+ = or < 3.5 Acetaminophen (Ofirmev) 650 mg in 65 mls @ 130 mls/hr IV Q6HP PRN; Protocol PRN Reason: Per Pain Protocol/Fever > 101 Last Infusion: 10/29/20 04:20 Dose: Infused Documented by: Magnesium Sulfate (Magnesium Sulfate) 2 gm in 50 mls @ 50 mls/hr IV UD PRN PRN Reason: MG = or < 1.7 Last Infusion: 10/27/20 23:30 Dose: Infused Documented by: Vancomycin HCl 750 mg/ Sodium (Chloride) 250 mls @ 250 mls/hr IV Q24H [facility] Last Infusion: 10/28/20 12:29 Dose: Infused Documented by: Sodium Chloride (Sodium Chloride 0.9%) 1,000 mls @ 75 mls/hr IV .[id number] [facility] Last Admin: 10/29/20 04:36 Dose: Not Given Documented by: Gentamicin Sulfate 40 mg/Clindamycin Phosphate 300 mg/Bacitracin 25,000 unit/ Sodium Chloride 503 mls @ 0 mls/hr IRR BID [facility] Last Admin: 10/28/20 20:32 Dose: 20 mls/hr Documented by: Iron Carb/Multivit/[employer]/Folic Acid (Multivitamin W/Minerals) 1 tab PO DAILY [facility] Last Admin: 10/28/20 10:00 Dose: 1 tab Documented by: Melatonin (Melatonin 3mg Tablet) 3 mg PO HSP PRN PRN Reason: Insomnia Ondansetron HCl (Zofran Odt) 4 mg SL Q4-6HP PRN; Protocol PRN Reason: Nausea And Vomiting Ondansetron HCl (Zofran) 4 mg IV Q4-6HP PRN; Protocol PRN Reason: Nausea And Vomiting Polyethylene Glycol (Miralax) 17 gm PO DAILYP PRN PRN Reason: Constipation Potassium/Phosphorus/Sodium (Neutra Phos) 2 packet PO BID [facility] Stop: 10/29/20 21:01 Last Admin: 10/28/20 20:16 Dose: 2 packet Documented by: Senna/Docusate Sodium (Senna Plus Tablet) 1 tab PO HS [facility] Last Admin: 10/28/20 20:16 Dose: 1 tab Documented by: Sodium Chloride (Saline Flush) 10 ml IV Q8 [facility] Last Admin: 10/29/20 06:03 Dose: Not Given Documented by: Sodium Chloride (Saline Flush) 10 ml IV Q12 [facility] Last Admin: 10/29/20 09:43 Dose: Not Given Documented by: Tramadol HCl (Ultram) 50 mg PO Q6HP PRN; Protocol PRN Reason: Pain Last Admin: 10/27/20 23:40 Dose: 50 mg Documented by: Vancomycin HCl (Vancomycin Per Pharmacy) 1 order IV UD [facility]; Protocol A/P Assessment and plan (1) Osteomyelitis of foot: Status: Acute (2) Decubitus ulcer, stage 4 with infection: Status: Acute (3) Dementia: Status: Acute Narrative A/P Narrative: * Right heel ulcer/osteomyelitis/sacral decubiti/left posterior foot necrotizing soft tissue infection . Status post surgical debridement by wound care Dr. Sabillon 10/26. MSSA on intraoperative culture. On Vanco Rocephin. 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 * Mild CHF- resolved with diuresis * Left lower lobe atelectasis-COPD/deep breathing exercises/IS use as tolerated * Advanced dementia, at baseline stable * Adult failure to thrive -continue dietary interventions per dietitian * Profound self-care deficits. Ongoing PT/OT * Prophylaxis Heparin Plan * Continue wound care per Dr. Sabillon * CPT * Dementia care/fall watch * Nutrition support * Discharge planning per case management likely SNF with outpatient ID follow-up/weekly CRP/CBC Time Spent With Patient Time: Total time spent is greater than 50% in coordination of care (as documented) at patient's floor/unit and/or counseling patient: QUALITY VTE Deep Vein Thrombosis/Pulmonary Embolism Present on Admission: No
[2020-10-29] MEDS: CALCIUM (OYSTER SHELL) 500 MG TABLET PO SCH (09:55)
[2020-10-29] MEDS: NEUTRA PHOS 1 PACKET PO SCH ×2 (09:55→21:56)
[2020-10-29] MEDS: GENTAMICIN SULFATE 40 MG, CLINDAMYCIN 300 MG, BACITRACIN 25,000 UNIT in SODIUM CHLORIDE... IRR SCH ×2 (09:56→21:58)
[2020-10-29] MEDS: MULTIVIT,THER IRON,CA,FA & MIN 1 TABLET PO SCH (09:56)
[2020-10-29] MEDS: DOCUSATE SODIUM 100 MG CAPSULE PO SCH ×2 (09:56→21:56)
[2020-10-29] MEDS: HEPARIN 5,000 UNIT/ML VIAL SQ SCH ×2 (09:56→21:56)
[2020-10-29] MEDS: cefTRIAXone 2 GM in DEXTROSE 5% IN WATER 50 ML IV SCH (09:56)
[2020-10-29] MEDS: VANCOMYCIN 750 MG in 0.9 % SODIUM CHLORIDE 250 ML IV SCH (10:45)
[2020-10-29] MEDS ORDERED: amLODIPine 5 MG TABLET PO SCH (21:00)
[2020-10-29] MEDS: SENNOSIDES/DOCUSATE SODIUM 1 TAB TABLET PO SCH (21:56)
[2020-10-29] MEDS ORDERED: hydrALAZINE 20 MG/ML VIAL IV PRN (23:41)
[2020-10-29] MEDS ORDERED: hydrALAZINE 20 MG/ML VIAL ONE (23:53)
[2020-10-30] MEDS: ACETAMINOPHEN 650 MG/65 ML BAG IV PRN (02:06)
[2020-10-30] MEDS: 0.9 % SODIUM CHLORIDE 1,000 ML IV SCH (02:06)
[2020-10-30] MEDS: HYDROcodone/APAP 5/325MG TABLET PO PRN ×2 (04:42→10:43)
[2020-10-30 06:47] LABS: Basophils # (Auto) 0.06 K/mcL (0.00-0.20); Basophils % (Auto) 0.3 % (0.0-2.0); Eosinophils # (Auto) 0.05 K/mcL (0.00-0.70); Eosinophils % (Auto) 0.3 % (0.0-7.0); Hematocrit 34.5 % (36.0-48.0); Hemoglobin 10.7 g/dL (12.0-15.0); Lymphocytes # (Auto) 1.67 K/mcL (1.50-4.80); Mean Cell Volume 82.5 fL (80.0-100.0); Mean Platelet Volume 9.6 fL (7.4-10.4); Monocytes # (Auto) 1.12 K/mcL (0.10-0.90); Neutrophils % (Auto) 84.4 % (38.0-78.0); Platelet Count 419 K/mcL (140-440); RBC 4.18 M/mcL (4.00-5.20); WBC 18.6 K/mcL (4.5-11.0)
[2020-10-30] MEDS: GENTAMICIN SULFATE 40 MG, CLINDAMYCIN 300 MG, BACITRACIN 25,000 UNIT in SODIUM CHLORIDE... IRR SCH (08:31)
[2020-10-30] MEDS: DOCUSATE SODIUM 100 MG CAPSULE PO SCH (08:31)
[2020-10-30] MEDS: cefTRIAXone 2 GM in DEXTROSE 5% IN WATER 50 ML IV SCH (08:31)
[2020-10-30] MEDS: MULTIVIT,THER IRON,CA,FA & MIN 1 TABLET PO SCH (08:31)
[2020-10-30] MEDS: CALCIUM (OYSTER SHELL) 500 MG TABLET PO SCH (08:31)
[2020-10-30] MEDS: 0.9 % SODIUM CHLORIDE 10 ML SYRINGE IV SCH (08:32)
--- NOTE | 2020-10-30 09:22 | Discharge Summary ---
Discharge Provider Provider Patient information: Note initiated : 10/30/20 at 9:18 am Service Date, if different from initiated Date: [] Patient: Yelitza Knight a 89 y/o F admitted on 10/23/20 for foot wounds. Discharge diagnosis * Right heel ulcer/osteomyelitis/sacral decubiti/left posterior foot necrotizing soft tissue infection . Status post surgical debridement by wound care Dr. Sabillon 10/26. MSSA on intraoperative culture. Continue wound care for wound physician at SNF. 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 * Advanced dementia, at baseline stable. * Adult failure to thrive -continue dietary interventions per dietitian * Profound self-care deficits. Ongoing PT/OT Brief hospital course Ms. Knight is a 89 year old F with a history of advanced dementia who was brought to the ER by her son Adam due to worsening healing decubitus wounds. Patient is mostly bedridden with profound self-care deficit requiring assistance for ADLs from her family. She was admitted in June with UTI and mental status change and was discharged home on family's insistence. Daughter Elis and son Adam who shares POA requested home health services. Over the last 3 months since discharge patient's wound has been worsening with increasing in size and foul-smelling purulent discharge. Family expresses inability to provide care of her anymore. During today's evaluation CT revealed osteomyelitis along with extensive gangrenous changes and tissue necrosis at decubitus and heel ulcerations. White count of 16,000. Cultures were drawn and wound care/podiatry was consulted. Hospital service was consulted for admission At the time of my evaluation patient is pleasantly demented, occasionally will smile. Denies pain, unable to verbalize much. Most of the history was obtained from son Adam who was at bedside. 10/24-patient doing well. Ongoing evaluation by wound care. Continue antibiotic coverage. Mental status at baseline. Wound care request family conference in a.m. for goals of care/surgical intervention. Case management coordinating SNF transfer on discharge. 10/25-patient doing well. No overnight events. No concerns per staff. debridement today by Dr. Leary. mental status remains at baseline. Currently n.p.o. Labs and hemodynamics stable. On nutrition support 10/26-patient seen in room. Resting comfortably. Remains nonverbal. No overnight events or concerns per staff. White count 11.5. Left lower lobe atelectasis. Early CHF findings. Continue aggressive CPT. On antibiotic coverage 10/27-patient continuing on antibiotic coverage. No overnight events. No concerns per staff. Ongoing wound care per Dr. Foy. On nutrition support. Await SNF transfer likely Friday with outpatient antibiotic per ID for osteomyelitis. Midline placed. 10/28-patient doing a lot better. No overnight events. No concerns per staff. Switch antibiotics to Unasyn today. Continue CRP/blood work as directed by ID. Ongoing wound care per Dr. Sabillon. 10/29-patient doing well. Ongoing wound care. Continue antibiotics. Anticipate discharge on IV Unasyn per ID recommendations. [facility] pharmacy does not carry Unasyn, will continue Rocephin/Vanco until discharge. Stable hemodynamics, no concerns per staff. 10/30-patient discharging to SNF for continued antibiotics. White count elevated at 18,000. Continue aspiration precautions/continued wound care/ST OT and PT eval. High risk for aspiration due to bedbound status and profound dementia and inability to follow directions. We will continue antibiotics as per ID 6 weeks IV Unasyn. Continue Levaquin for additional 5 days for aspiration pneumonia. Date of admission: 10/23/20 17:05 Discharge date: 10/30/20 Primary care physician: Devon White Consults: 10/23/20 Consult to Physician [CONS] Stat Comment: Consulting Provider: Bhaskar Agrawal Reason For Exam: Physician to Consult 10/23/20 17:19 Consult to Physician [CONS] Routine Comment: Consulting Provider: Glenn Sabillon Reason For Exam: Physician to Consult 10/26/20 17:47 Consult to Infectious Disease [CONS] Routine Comment: Consulting Provider: Adarsh Bhakta Reason For Exam: Physician to Consult Discharge Meds Discharge Medications Home Medications acetaminophen [Children's Acetaminophen] 640 mg PO QID PRN 07/03/20 [History Confirmed 10/23/20 Last Taken Unknown] Adult One Daily Multivitamin 0.4 mg PO DAILY 10/23/20 [History Confirmed 10/23/20 Last Taken 10/23/20] calcium carbonate [Calcium 500] 1,250 mg PO DAILY 10/23/20 [History Confirmed 10/23/20 Last Taken 10/23/20] ampicillin-sulbactam [Unasyn] 3 g IM Q6H #168 each 10/30/20 [Rx Last Taken Unknown] levofloxacin 750 mg PO DAILY #5 tab 10/30/20 [Rx Last Taken Unknown] COURSE Hospital Course Hospital course: . Discharge diagnosis: Calcaneal osteomyelitis, decubitus ulcer/aspiration pneumonitis/advanced de Time Spent with Patient Time attestation: Total time spent providing and/or coordinating discharge services: EXAM Constitutional Vitals: Temp Pulse Resp BP Pulse Ox 98.4 F 60 22 157/76 93 10/30/20 08:00 10/30/20 08:36 10/30/20 08:00 10/30/20 08:36 10/30/20 08:36 Discharge Data Data Completed and Pending Labs on day of discharge: Labs from last 24 hours 10/30/20 05:20 WBC 18.6 H RBC 4.18 Hgb 10.7 L Hct 34.5 L MCV 82.5 MCH 25.6 L MCHC 31.0 RDW 15.0 H Plt Count 419 MPV 9.6 Neut % (Auto) 84.4 H Lymph % (Auto) 9.0 L Sutton % (Auto) 6.0 Eos % (Auto) 0.3 Baso % (Auto) 0.3 Lymph # (Auto) 1.67 Sutton # (Auto) 1.12 H Eos # (Auto) 0.05 Baso # (Auto) 0.06 Absolute Neutrophils 15.66 H Preliminary micro results at discharge 10/25/20 13:12 Gram Stain - Preliminary Foot - Left Anaerobic Culture - Preliminary Discharge Plan Patient/Caregiver Discharge Instructions Activity: increase activity as tolerated Diet: Regular Diet Activity Restrictions/Additional Instructions: Continue Levaquin for 5 days for aspiration pneumonia Unasyn for 6 weeks IV for calcaneal osteomyelitis Maintain aspiration precautions/ST eval/diet per ST recommendations Aggressive wound care as per wound physician's recommendation Dementia care Decubitus care Prescriptions: New levofloxacin [levofloxacin] 750 MG tablet 750 mg PO DAILY Qty: 5 RF: 0 ampicillin-sulbactam [Unasyn] 3 gram recon soln 3 g IM Q6H Qty: 168 RF: 0 Continued acetaminophen [Children's Acetaminophen] 160 mg/5 mL Liquid 640 mg PO QID PRN (Reason: Pain) RF: 0 calcium carbonate [Calcium 500] 500 mg calcium (1,250 mg) Tablet 1,250 mg PO DAILY RF: 0 Adult One Daily Multivitamin 0.4 mg Tablet 0.4 mg PO DAILY RF: 0 Follow Up Plan Follow up with: Devon White MD [Primary Care Provider] - Patient Disposition: Xfer SNF Rehab Potential: Undetermined I certify that the patient requires SNF services: Yes Overall status at discharge: patient is progressing back to baseline Discharge Orders: Discharge Order (Routine); Ordered 10/30/20 Ordered By: Bhaskar VENTURA VTE Deep Vein Thrombosis/Pulmonary Embolism Present on Admission: No
[2020-10-30] MEDS: VANCOMYCIN 750 MG in 0.9 % SODIUM CHLORIDE 250 ML IV SCH (10:21)
[2020-10-30] MEDS ORDERED: 0.9 % SODIUM CHLORIDE 10 ML SYRINGE IV PRN (10:29)
[2020-10-30] MEDS: HEPARIN 5,000 UNIT/ML VIAL SQ SCH (11:13)
[2020-10-30] MEDS: LEVOFLOXACIN 500 MG/100 ML BAG IV ONE ×2 (11:13→11:57)
--- NOTE | 2020-10-30 13:01 | General Surgery Progress Note ---
SUBJECTIVE Subjective Patient information: Note initiated : 10/30/20 at 12:53 pm Service Date, if different from initiated Date: [] Patient: Yelitza Knight 89 y/o F admitted on 10/23/20 for foot wounds. Chief Complaint: [] Additional PMFSH (Level 3 Only): Patient seen on rounds with Leigh RN and Emily RN In Patient Wound Care nurse. Constitutional Vitals: Vital Signs Temp Pulse Resp BP Pulse Ox 98.4 F 60 22 161/68 93 10/30/20 08:00 10/30/20 08:36 10/30/20 08:00 10/30/20 12:28 10/30/20 08:36 Period Temp Pulse Resp BP Sys/Martel Pulse Ox Last 24 Hr 97.5 F-98.4 F 60-65 15-24 141-193/56-76 88-93 Intake and Output 10/29/20 10/30/20 10/30/20 21:59 05:59 13:59 Intake Total 325 1285 50 Output Total 300 300 Balance 25 985 50 Weight 129 lb 1 oz Intake & Output: Intake & Output 10/29/20 10/30/20 10/30/20 21:59 05:59 13:59 Intake Total 325 1285 50 Output Total 300 300 Balance 25 985 50 Weight 129 lb 1 oz Intake: IV 65 1065 Sodium Chloride 0.9% 1,000 ml @ 1000 75 mls/hr IV .[id number] [facility] Rx#: [id number] Oral 260 220 50 Output: Urine Catheter Amount 300 300 Other: Meal Nourishment/Supplement Breakfast Percent of Meal Consumed 75% Refused Feeding Ability Total Assistance Total Assistance Urine Appearance Clear Clear Uretheral (Sosa) Clear Clear Urine Color Dark Yellow Dark Yellow Uretheral (Sosa) Dark Yellow Dark Yellow Urine Odor Normal Normal Uretheral (Sosa) Normal Stool Size Moderate Small Stool Color Brown Brown Stool Consistency Dry and Hard Asha Formed # of times incontinent of 1 1 Bowels Exam: No fever. VSS. Had BM today. Clear urine in bag Non Verbal but responds appropriately when wounds examined and dressings changed. Granulating bilateral foot and heel wounds. Wound bed with granulating bases and dry black demarcating eschar around edges. NO purulence, NO odor and NO crepitation. Labs reviewed. WBC elevation NOT likely related to wounds. Multifactorial. Wound c/s Staph and skin bacteria. A/P Narrative A/P Narrative: Assessment: Overall Slow Improvement. NEEDS close monitoring and Rehab in a [facility] facility. Ongoing wound care and antibiotics to continue. Plan: If discharged or transferred out, Please schedule f/u appointment at wound center in ONE week. Time Spent With Patient Time: Total time spent is greater than 50% in coordination of care (as documented) at patient's floor/unit and/or counseling patient: Total time spent with greater than 50% in coordination of care (as documented) at patient's floor/unit and/or counseling patient:: 25 - 35 minutes
[2020-10-30] MEDS ORDERED: 0.9 % SODIUM CHLORIDE 10 ML SYRINGE IV SCH (21:00)
== END 2020-10-30 13:45 | DRG 264 ==
LOC: ED 11:19 → MEDSUR 17:05
PROVIDERS: ADMIT Internal Medicine; ATTEND Internal Medicine